=== PATIENT | female | born 1950 | race Hispanic/Latino ===

== ENCOUNTER 2016-12-01 17:43 | Inpatient (IN) | payer MEDICARE, BC ==
[2016-12-01 18:02] VITALS: BMI 22.6
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
[2016-12-01 18:37] LABS: ADD MANUAL DIFF? NO
[2016-12-01 18:47] LABS: BASO # 0.05 K/mm3 (0.0-2.0); EOS # 0.1 (0.0-0.7); EOS % 1.4 % (1.5-5.0); GRAN # 2.86 (1.4-6.5); HEMATOCRIT 37.7 % (36.0-48.0); LYMPH # 1.7 (1.2-3.4); LYMPH % 34.1 % (22.0-35.0); MEAN CORPUSCULAR HEMOGLOBIN 30.5 pg (25.0-35.0); MEAN PLATELET VOLUME 9.9 fl (7.0-11.0); MONO # 0.4 (0.1-0.6); MONO % 7.5 % (1.0-6.0); PLATELET COUNT 324 10^3/uL (120.0-450.0); RED CELL DISTRIBUTION WIDTH 12.4 % (11.5-14.5); WHITE BLOOD COUNT 5.1 10^3/ul (4.5-11.0)
[2016-12-01 18:52] LABS: ALB/GLOB RATIO 1.1 (1.1-1.8); ALKALINE PHOSPHATASE 82 U/L (38-133); ALT/SGPT 43 U/L (7-56); AST/SGOT 34 U/L (15-39); BILIRUBIN,TOTAL 0.9 mg/dL (0.2-1.3); BLOOD UREA NITROGEN 9 mg/dL (7-21); CALCIUM 9.2 mg/dL (8.4-10.5); CARBON DIOXIDE 28 mmol/L (21-33); CHLORIDE 104 mmol/L (98-107); GFR AFRICAN-AMERICAN > 60; GLUCOSE,RANDOM 105 mg/dL (70-110); POTASSIUM 3.7 mmol/L (3.6-5.0); SODIUM 142 mmol/L (132-148)
[2016-12-01 18:53] LABS: PH,URINE 7.5 (4.7-8.0); URINE BILIRUBIN NEGATIVE (NEGATIVE); URINE BLOOD NEGATIVE (NEGATIVE); URINE GLUCOSE (UA) NEGATIVE (NEGATIVE); URINE KETONE NEGATIVE (NEGATIVE); URINE LEUKOCYTE ESTERASE SMALL Leu/uL (NEGATIVE); URINE PROTEIN NEGATIVE mg/dL (<30 mg/dL)
[2016-12-01 19:25] LABS: URINE APPEARANCE SL CLOUDY (CLEAR); URINE COLOR YELLOW (YELLOW)
[2016-12-01 19:26] LABS: URINE RBC 0 - 2 /hpf (0-2)
[2016-12-01 19:28] LABS: URINE BACTERIA FEW (NEG)
[2016-12-01 20:43] VITALS: O2SAT 95
--- NOTE | 2016-12-02 08:01 | RAD ---
HISTORY: pes eval COMPARISON: 07/16/2016 FINDINGS: LUNGS: No active pulmonary disease. PLEURA: No significant pleural effusion identified, no pneumothorax apparent. CARDIOVASCULAR: Normal. OSSEOUS STRUCTURES: No significant abnormalities. VISUALIZED UPPER ABDOMEN: Normal. OTHER FINDINGS: None. IMPRESSION: No active disease.
[2016-12-02] MEDS: buPROPion 300 mg/24 Hours XL Tab PO SCH (09:17)
[2016-12-02 09:28] LABS: CHOLESTEROL 198 mg/dL (130-200); GLUCOSE,FASTING 96 mg/dL (65-110)
[2016-12-02 09:42] LABS: FREE T4 1.14 ng/dL (0.78-2.19)
[2016-12-02 09:56] LABS: THYROID STIMULATING HORMONE 1.58 mIU/mL (0.46-4.68)
--- NOTE | 2016-12-02 11:20 | CARD ---
APPROVED REPORT EKG Measurement Heart [id number] VT [id number] [id number] <Conclusion> Normal sinus rhythm Normal ECG
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
[2016-12-03] MEDS: buPROPion 300 mg/24 Hours XL Tab PO SCH (08:42)
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
[2016-12-04 06:34] VITALS: BP 147/90; PULSE 67; RESP 19; TEMP 97.8
[2016-12-04] MEDS: buPROPion 300 mg/24 Hours XL Tab PO SCH (08:20)
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
== END 2016-12-04 15:16 | disposition home or self-care (01) | DRG 885 ==
LOC: ED 17:43 → ERH 23:45 → PSYC 12-02 01:29
PROVIDERS: ADMIT Psychiatry & Neurology Psychiatry; ATTEND Psychiatry & Neurology Psychiatry
DX: F33.2 Major depressive disorder, recurrent severe without psychotic features (principal); Z91.19 Patient's noncompliance with other medical treatment and regimen; F41.1 Generalized anxiety disorder; F45.9 Somatoform disorder, unspecified; F43.10 Post-traumatic stress disorder, unspecified; F51.04 Psychophysiologic insomnia; F10.10 Alcohol abuse, uncomplicated; K64.8 Other hemorrhoids; K63.89 Other specified diseases of intestine

== ENCOUNTER 2016-12-27 15:58 | Emergency (ER) | payer MEDICARE, BC ==
[2016-12-27 16:06] VITALS: BMI 20.9
[2016-12-27 16:09] VITALS: RESP 16; TEMP 97.9
[2016-12-27] MEDS ORDERED: Magnesium Citrate Oral SOL (300 ml) PO ONE (16:16)
--- NOTE | 2016-12-27 16:34 | ED PDOC ---
Arrival/HPI - General Chief Complaint: GI Problem Time Seen by Provider: 12/27/16 16:00 - History of Present Illness Narrative History of Present Illness (Text): 66 y/o F c PMHx Depression p/w constipation x 2 weeks. Reports abdominal discomfort but not particularly pain. Denies vomiting, dyspnea. Takes narcotic pain medication chronically. Patient with previous visits to this ER for constipation. Past Medical History - Past History Past History: No Previous - Infectious Disease Hx of Infectious Diseases: None - Tetanus Immunization Tetanus Immunization: Unknown - Reproductive Menopause: Yes - Past Medical History Past Medical History: No Previous - Cardiac Hx Cardiac Disorders: No Hx Hypertension: No - Pulmonary Hx Respiratory Disorders: No Hx Tuberculosis: No - Neurological HX Cerebrovascular Accident: No Hx Seizures: No - HEENT Hx HEENT Disorder: No - Renal Hx Renal Disorder: No - Endocrine/Metabolic Hx Endocrine Disorders: No - Hematological/Oncological Hx Blood Disorders: No Hx Cancer: No - Integumentary Hx Dermatological Disorder: No - Musculoskeletal/Rheumatological Hx Musculoskeletal Disorders: Yes Hx Back Pain: Yes Other/Comment: sees pain management - Gastrointestinal Hx Gastrointestinal Disorders: Yes (pancreatic stent placement, but patient does not recall information ) Hx Pancreatitis: Yes Other/Comment: ABD PAIN - RECENT ADMISSION - Genitourinary/Gynecological Hx Genitourinary Disorders: Yes Hx Sexually Transmitted Diseases: No Hx Urinary Tract Infection: Yes - Psychiatric Hx Psychophysiologic Disorder: Yes Hx Bipolar Disorder: Yes Hx Substance Use: No - Past Surgical History Past Surgical History: No Previous - Surgical History Hx Cataract Extraction: Yes Other/Comment: PANCREATIC STENT, ABD PAIN, colonoscopy - Anesthesia Hx Anesthesia: Yes Hx Anesthesia Reactions: No Hx Malignant Hyperthermia: No - Suicidal Assessment Feels Threatened In Home Enviroment: No Family/Social History Family/Social History: No Known Family HX Smoking Status: Current Some Days Smoker Hx Alcohol Use: No Hx Substance Use: No Hx Substance Use Treatment: No Allergies/Home Meds Allergies/Adverse Reactions: Allergies morphine Allergy (Verified 12/28/16 15:18) ITCHING Home Medications: Home Meds Medication Instructions Recorded Confirmed Diazepam [Valium] 2 mg PO TID 12/27/16 12/27/16 Eszopiclone [Lunesta] 3 mg PO HS 12/27/16 12/27/16 Lubiprostone [Amitiza] 24 mcg PO BID 12/27/16 12/27/16 amLODIPine [Norvasc] 5 mg PO DAILY 12/27/16 12/27/16 buPROPion [Wellbutrin] 300 mg PO DAILY 12/27/16 12/27/16 traMADol [Ultram] 25 mg PO BID 12/27/16 12/27/16 Review of Systems - Physician Review All systems were reviewed & negative as marked: Yes - Review of Systems Constitutional: absent: Fevers Gastrointestinal: absent: Vomiting Physical Exam Vital Signs Temp Pulse Resp BP Pulse Ox 12/27/16 18:12 82 16 110/76 98 12/27/16 16:09 97.9 F 93 H 16 111/79 100 - Systems Exam Head: Present: Atraumatic Mouth: Present: Moist Mucous Membranes Neck: Present: Normal Range of Motion Respiratory/Chest: Present: Clear to Auscultation Cardiovascular: Present: Regular Rate and Rhythm Abdomen: No: Peritoneal Signs Rectal: Present: Other (No rectal impaction). No: Gross Blood, Fissures, Nodule /Mass/Lesions Lower Extremity: No: Edema Neurological: Present: GCS=15 Psychiatric: Present: Alert Medical Decision Making ED Course and Treatment: 12/27/16 16:33 Abdominal XR to evaluate for bowel obstruction. Mag citrate to treat constipation. 12/27/16 18:40 Patient without bowel movement. Gave fleet enema, patient ran to bathroom but only liquid, she states. Rectal exam shows no impaction, no stool within reach of digit. XR shows no air fluid levels. Will administer Golytely. Signed out to ER night team pending BM. - RAD Interpretation Radiology Orders: 12/27/16 16:17 ABD 2 VIEWS (FLAT/UP OR DECUB) [RAD] Stat - Medication Orders Current Medication Orders: Discontinued Medications Magnesium Citrate (Citrate Of Mag) 300 ml PO ONCE ONE Stop: 12/27/16 16:17 Last Admin: 12/27/16 16:35 Dose: 300 ml Polyethylene Glycol/Electrolytes (Golytely) 4,000 ml PO STAT STA Stop: 12/27/16 18:36 Last Admin: 12/27/16 18:45 Dose: 4,000 ml Sodium Phosphate (Fleet Enema) 135 ml RC STAT STA Stop: 12/27/16 17:50 Last Admin: 12/27/16 18:03 Dose: 135 ml Disposition/Present on Arrival - Present on Arrival Any Indicators Present on Arrival: No History of DVT/PE: No History of Uncontrolled Diabetes: No Urinary Catheter: No History of Decub. Ulcer: No History Surgical Site Infection Following: None - Disposition Have Diagnosis and Disposition been Completed?: Yes Diagnosis: Constipation Disposition: HOME/ ROUTINE Disposition Time: 18:41 Patient Plan: Discharge Condition: STABLE Discharge Instructions (ExitCare): Constipation (ED) Referrals: Sami Villarreal MD [Primary Care Provider] - Follow up with primary
[2016-12-27 18:12] VITALS: BP 110/76; PULSE 82; O2SAT 98
[2016-12-27] MEDS ORDERED: Peg-Electrolyte Oral Soln 4L (Golytely) PO STA (18:35)
--- NOTE | 2016-12-28 09:59 | RAD ---
HISTORY: constipation, nausea COMPARISON: No prior. FINDINGS: BOWEL: Normal. No obstruction. No free air. BONES: Normal. OTHER FINDINGS: None. IMPRESSION: No evidence of bowel obstruction.
== END 2016-12-27 20:12 | disposition home or self-care (01) ==
LOC: ED 15:58
DX: K59.00 Constipation, unspecified (principal)

== ENCOUNTER 2016-12-28 15:00 | Emergency (ER) | payer MEDICARE, BC ==
[2016-12-28 15:01] VITALS: BMI 20.9
[2016-12-28 15:21] VITALS: BP 129/86; PULSE 93; RESP 18; TEMP 98.5; O2SAT 100
[2016-12-28 16:12] LABS: URINE BILIRUBIN NEGATIVE (NEGATIVE); URINE BLOOD TRACE-INTACT (NEGATIVE); URINE GLUCOSE (UA) NEGATIVE (NEGATIVE); URINE KETONE 40 mg/dL (NEGATIVE); URINE LEUKOCYTE ESTERASE NEGATIVE Leu/uL (NEGATIVE); URINE PROTEIN 30 mg/dL (<30 mg/dL); URINE UROBILINOGEN 0.2 E.U./dL (<1 E.U./dL)
--- NOTE | 2016-12-28 16:12 | ED PDOC ---
Arrival/HPI - General Chief Complaint: Female Genitourinary Time Seen by Provider: 12/28/16 15:36 Historian: Patient - History of Present Illness Narrative History of Present Illness (Text): 12/28/16 16:09 Patient complains of dysuria that started early this morning. Patient has no flank pain, back pain or abdominal pain. Otherwise: (-) vomiting, (-) diarrhea, (-) fever, (-) melena, (-) hematochezia. Has no other complaints. PMD Cherelle Palacio Past Medical History - Provider Review Nursing Documentation Reviewed: Yes - Past History Past History: No Previous - Infectious Disease Hx of Infectious Diseases: None - Tetanus Immunization Tetanus Immunization: Unknown - Past Medical History Past Medical History: No Previous - Cardiac Hx Cardiac Disorders: No Hx Hypertension: No - Pulmonary Hx Respiratory Disorders: No Hx Tuberculosis: No - Neurological HX Cerebrovascular Accident: No Hx Seizures: No - HEENT Hx HEENT Disorder: No - Renal Hx Renal Disorder: No - Endocrine/Metabolic Hx Endocrine Disorders: No - Hematological/Oncological Hx Blood Disorders: No Hx Cancer: No - Integumentary Hx Dermatological Disorder: No - Musculoskeletal/Rheumatological Hx Musculoskeletal Disorders: Yes Hx Back Pain: Yes Other/Comment: sees pain management - Gastrointestinal Hx Gastrointestinal Disorders: Yes (pancreatic stent placement, but patient does not recall information ) Hx Pancreatitis: Yes Other/Comment: ABD PAIN - RECENT ADMISSION - Genitourinary/Gynecological Hx Genitourinary Disorders: Yes Hx Sexually Transmitted Diseases: No Hx Urinary Tract Infection: Yes - Psychiatric Hx Psychophysiologic Disorder: Yes Hx Bipolar Disorder: Yes Hx Substance Use: No - Past Surgical History Past Surgical History: No Previous - Surgical History Hx Cataract Extraction: Yes Other/Comment: PANCREATIC STENT, ABD PAIN, colonoscopy - Anesthesia Hx Anesthesia: Yes Hx Anesthesia Reactions: No Hx Malignant Hyperthermia: No - Suicidal Assessment Feels Threatened In Home Enviroment: No Family/Social History - Physician Review Nursing Documentation Reviewed: Yes Family/Social History: No Known Family HX Smoking Status: Current Some Days Smoker Hx Alcohol Use: No Hx Substance Use: No Hx Substance Use Treatment: No Allergies/Home Meds Allergies/Adverse Reactions: Allergies morphine Allergy (Verified 12/28/16 15:18) ITCHING Home Medications: Home Meds Medication Instructions Recorded Confirmed Diazepam [Valium] 2 mg PO TID 12/27/16 12/27/16 Eszopiclone [Lunesta] 3 mg PO HS 12/27/16 12/27/16 Lubiprostone [Amitiza] 24 mcg PO BID 12/27/16 12/27/16 amLODIPine [Norvasc] 5 mg PO DAILY 12/27/16 12/27/16 buPROPion [Wellbutrin] 300 mg PO DAILY 12/27/16 12/27/16 traMADol [Ultram] 25 mg PO BID 12/27/16 12/27/16 Review of Systems - Review of Systems Constitutional: Normal. absent: Fatigue, Weight Change, Fevers Respiratory: Normal. absent: SOB, Cough, Sputum Cardiovascular: Normal. absent: Chest Pain, Palpitations, Edema Gastrointestinal: Normal, Constipation. absent: Abdominal Pain, Stool Changes Genitourinary Female: Normal, Dysuria. absent: Frequency, Hematuria Musculoskeletal: Normal. absent: Arthralgias, Back Pain, Neck Pain Skin: Normal. absent: Rash, Pruritis, Skin Lesions Physical Exam - Physical Exam Narrative Physical Exam (Text): 12/28/16 16:11 GENERAL APPEARANCE: Patient is awake, alert, oriented x 3, in no acute distress. SKIN: Warm, dry; (-) cyanosis. EYES: (-) conjunctival pallor, (-) scleral icterus. ENMT: Mucous membranes moist. NECK: (-) tenderness, (-) stiffness, (-) lymphadenopathy. CHEST AND RESPIRATORY: (-) rales, (-) rhonchi, (-) wheezes; breath sounds equal bilaterally. HEART AND CARDIOVASCULAR: (-) irregularity; (-) murmur, (-) gallop. ABDOMEN AND GI: (-) distention. Bowel sounds active; (-) tenderness, (-) guarding, (-) rebound, (-) palpable masses, (-) CVA tenderness. EXTREMITIES: (-) deformity, (-) edema, (+) distal pulses. NEURO AND PSYCH: Mental status as above; (-) focal findings. Vital Signs Temp Pulse Resp BP Pulse Ox 12/28/16 15:20 98.5 F 93 H 18 129/86 100 Medical Decision Making ED Course and Treatment: 12/28/16 16:12 66 yo F complaining of dysuria only. Urinalysis and urine culture sent. UA shows (+) ketones, (+) protien, (-) nitrates, (-) leuks. Urine culture pending. Based on history, exam and diagnostic results plan will be for the patient follow-up with PMD. Prescription provided. Patient states she fully agrees with and understands discharge instructions. States that she agrees with the plan and disposition. Verbalized and repeated discharge instructions and plan. I have given the patient opportunity to ask any additional questions. Follow up with primary care physician in 1-2 days without fail. Advised to take medication as prescribed. Return to the emergency room at any time for any new or worsening symptoms. - Lab Interpretations Lab Results: Lab Results 12/28/16 15:45: Urine Color Yellow, Urine Appearance Sl cloudy, Urine pH 8.0, Ur Specific [place] 1.020, Urine Protein 30 H, Urine Glucose (UA) Negative, Urine Ketones 40 H, Urine Blood Trace-intact H, Urine Nitrate Negative, Urine Bilirubin Negative, Urine Urobilinogen 0.2, Ur Leukocyte Esterase Negative, Urine RBC 0 - 2, Urine WBC 1 - 3, Ur Epithelial Cells 3 - 4, Amorphous Sediment Moderate, Urine Bacteria Small - PA / MANAGER GOLF / Resident Statement MD/DO has reviewed & agrees with the documentation as recorded. Disposition/Present on Arrival - Present on Arrival Any Indicators Present on Arrival: No History of DVT/PE: No History of Uncontrolled Diabetes: No Urinary Catheter: No History of Decub. Ulcer: No History Surgical Site Infection Following: None - Disposition Have Diagnosis and Disposition been Completed?: Yes Diagnosis: Dysuria Disposition: HOME/ ROUTINE Disposition Time: 16:38 Patient Plan: Discharge Condition: GOOD Discharge Instructions (ExitCare): Dysuria (ED) Print Language: PERSIAN Additional Instructions: Thank you for letting us take care of you today. You were treated for dysuria, consider UTI. The emergency medical care you received today was directed at your acute symptoms. If you were prescribed any medication, please fill it and take as directed. It may take several days for your symptoms to resolve. Return to the Emergency Department if your symptoms worsen, do not improve, or if you have any other problems. Please contact your doctor in 2 days for re-evaluation and follow up. Bring any paperwork you were given at discharge with you along with any medications you are taking to your follow up visit. Our treatment cannot replace ongoing medical care by a primary care provider (PCP) outside of the emergency department. Thank you for allowing the [facility] team to be part of your care today. Prescriptions: Nitrofurantoin Macrocrystals [Macrobid] 100 mg PO BID #20 cap Phenazopyridine [Pyridium] 200 mg PO BID #6 tab Referrals: Sami Villarreal MD [Primary Care Provider] - Follow up with primary
[2016-12-28 16:18] LABS: URINE APPEARANCE SL CLOUDY (CLEAR); URINE COLOR YELLOW (YELLOW)
[2016-12-28 16:35] LABS: URINE AMORPHOUS SEDIMENT MODERATE; URINE BACTERIA SMALL (NEG); URINE RBC 0 - 2 /hpf (0-2)
== END 2016-12-28 16:55 | disposition home or self-care (01) ==
LOC: ED 15:00
DX: R30.0 Dysuria (principal)

== ENCOUNTER 2017-01-09 13:03 | Inpatient (IN) | payer MEDICARE, BC ==
[2017-01-09 13:03] VITALS: BMI 20.9
[2017-01-09] MEDS ORDERED: Sodium Chloride 0.9% 1,000 ML IV STA (14:01)
--- NOTE | 2017-01-09 14:04 | ED PDOC ---
Arrival/HPI - General Chief Complaint: Abdominal Pain Time Seen by Provider: 01/09/17 13:59 Historian: Patient - History of Present Illness Narrative History of Present Illness (Text): 01/09/17 14:01 66 year old female presents to the emergency department with abdominal pain today. Patient states she was constipated and took Enemas and Ducolax. She reports she took GoLYTELY which relieved the constipation. Now she reports abdominal discomfort described as burning/cramping and clear diarrhea. Currently denies constipation or other complaints. Time/Duration: < week Symptom Onset: Gradual Symptom Course: Unchanged Quality: Cramping, Burning Past Medical History - Provider Review Nursing Documentation Reviewed: Yes - Past History Past History: No Previous - Infectious Disease Hx of Infectious Diseases: None - Tetanus Immunization Tetanus Immunization: Unknown - Past Medical History Past Medical History: No Previous - Cardiac Hx Cardiac Disorders: No Hx Hypertension: No - Pulmonary Hx Respiratory Disorders: No Hx Tuberculosis: No - Neurological HX Cerebrovascular Accident: No Hx Seizures: No - HEENT Hx HEENT Disorder: No - Renal Hx Renal Disorder: No - Endocrine/Metabolic Hx Endocrine Disorders: No - Hematological/Oncological Hx Blood Disorders: No Hx Cancer: No - Integumentary Hx Dermatological Disorder: No - Musculoskeletal/Rheumatological Hx Musculoskeletal Disorders: Yes Hx Back Pain: Yes Other/Comment: sees pain management - Gastrointestinal Hx Gastrointestinal Disorders: Yes (pancreatic stent placement, but patient does not recall information ) Hx Pancreatitis: Yes Other/Comment: ABD PAIN - RECENT ADMISSION - Genitourinary/Gynecological Hx Genitourinary Disorders: Yes Hx Sexually Transmitted Diseases: No Hx Urinary Tract Infection: Yes - Psychiatric Hx Psychophysiologic Disorder: Yes Hx Bipolar Disorder: Yes Hx Substance Use: No - Past Surgical History Past Surgical History: No Previous - Surgical History Hx Cataract Extraction: Yes Other/Comment: PANCREATIC STENT, ABD PAIN, colonoscopy - Anesthesia Hx Anesthesia: Yes - Suicidal Assessment Feels Threatened In Home Enviroment: No Family/Social History - Physician Review Nursing Documentation Reviewed: Yes Family/Social History: Unknown Family HX Smoking Status: Current Some Days Smoker Hx Alcohol Use: No Hx Substance Use: No Hx Substance Use Treatment: No Allergies/Home Meds Allergies/Adverse Reactions: Allergies morphine Allergy (Verified 01/09/17 13:08) ITCHING Home Medications: Home Meds Medication Instructions Recorded Confirmed No Known Home Med 01/09/17 01/09/17 Review of Systems - Physician Review All systems were reviewed & negative as marked: Yes Physical Exam - Physical Exam Narrative Physical Exam (Text): - Review of Systems Constitutional: Normal. absent: Fatigue, Weight Change, Fevers Eyes: Normal ENT: Normal Respiratory: Normal absent: SOB, Cough, Sputum Cardiovascular: Normal absent: Chest pain, Palpitations, Syncope Gastrointestinal: Abdominal pain, Diarrhea, Constipation (resolved) absent: Nausea, Vomiting Genitourinary: Normal. absent: Dysuria, Frequency, Hematuria Musculoskeletal: Normal. absent: Arthralgias, Back Pain, Neck Pain Skin: Normal Neurological: Normal absent: Focal Weakness Endocrine: Normal Hemo/Lymphatic: Normal Psychiatric: Normal - Physical exam Patient appears age appropriate, speaking full sentences without difficulty - Systems Exam Head: Present: Atraumatic, Normocephalic Pupils: Present: PERRL Extraocular Muscles: Present: EOMI Conjunctiva: Present: Normal Mouth: Present: Moist Mucous Membranes Neck: Present: Normal Range of Motion. No: MIDLINE TENDERNESS, Paraspinal Tenderness Respiratory/Chest: Present: Clear to Auscultation, Good Air Exchange. No: Respiratory Distress, Accessory Muscle Use, Tachypneic Cardiovascular: Present: Regular Rate and Rhythm, Normal S1, S2, Peripheral Pulses Present. No: Murmurs Abdomen: Present: Normal Bowel Sounds, Diffuse tenderness to palpation No: Peritoneal Signs, Rebound, Guarding, Distention Back: Present: Normal Inspection. No: Midline Tenderness, Paraspinal Tenderness Upper Extremity: Present: Normal Inspection. No: Cyanosis, Edema Lower Extremity: Present: Normal Inspection. No: Edema Neurological: Present: GCS=15, Speech Normal, cranial nerves II through XII fully intact with no cerebellar abnormality, neuro-sensory fully intact. No focal neurological deficits. Skin: Present: Warm, Dry, Normal Color. No: Rashes Lymphatic: Present: OX3, NI, NC Psychiatric: Present: Alert, Oriented x 3, Normal Insight, Normal Concentration Vital Signs Reviewed: Yes Vital Signs Temp Pulse Resp BP Pulse Ox 01/09/17 18:31 74 18 140/75 99 01/09/17 16:46 69 18 142/79 97 01/09/17 15:19 78 18 146/88 97 01/09/17 15:06 94 H 18 134/89 96 01/09/17 13:16 98.6 F 100 H 18 136/93 H 96 01/09/17 13:09 98.6 F 100 H 22 136/93 H 99 Temperature: Afebrile Blood Pressure: Normal Pulse: Regular Respiratory Rate: Normal Appearance: Positive for: Well-Appearing, Non-Toxic, Uncomfortable Pain Distress: Moderate Mental Status: Positive for: Alert and Oriented X 3 Medical Decision Making ED Course and Treatment: Impression: 66 year old female presents to the emergency department with abdominal pain today. Patient states she was constipated and took Enemas and Ducolax. On physical exam, patient has diffuse tenderness to palpation. Differential Diagnosis include but are not limited to: Nonspecific abdominal pain vs dehydration vs electrolyte imbalance Plan: -- CT Abdomen/Pelvis -- Toradol -- IV fluids -- Labs -- Reassess and disposition Prior Visits: Notes and results from previous visits were reviewed. Patient was seen in the ED on 12/27/16 for constipation and discharged home. Progress Notes: EKG shows NSR at [address]-segment elevations, normal intervals. Interpreted by me. 01/09/17 14:15 Case discussed with patient's GI, Dr. Herrera, who agrees with imaging, bloodwork, and plan. 01/09/17 17:03 On reevaluation, patient is resting comfortably in no pain distress. 01/09/17 18:28 Rectal exam shows no blood or stool in rectum. Optical Glass Inspector: NARCISA Rachel Tech 01/09/17 18:[address] Herrera who agrees with observation in hospital. Patient's PMD paged. Patient aware of and agrees with plan. 01/09/17 18:[address] David Villarreal, aware of obs under his service pt aware of and agrees with plan - Lab Interpretations Lab Results: 01/09/17 14:15 01/09/17 14:40 Lab Results 01/09/17 14:40: Chloride 102, Sodium 134, Potassium 3.7, Carbon Dioxide 23, Anion Gap 13, BUN 10, Creatinine 0.5, Est GFR ( Amer) > 60, Est GFR (Non- Af Amer) > 60, Random Glucose 95, Calcium 9.7, Total Bilirubin 0.9, AST 37, ALT 52, Alkaline Phosphatase 68, Total Protein 7.1, Albumin 4.1, Globulin 3.0, Albumin/Globulin Ratio 1.4, Lipase 33 01/09/17 14:29: Urine Color Yellow, Urine Appearance Clear, Urine pH 7.0, Ur Specific [place] 1.010, Urine Protein Negative, Urine Glucose (UA) Negative, Urine Ketones Negative, Urine Blood Trace-intact H, Urine Nitrate Negative, Urine Bilirubin Negative, Urine Urobilinogen 0.2, Ur Leukocyte Esterase Negative , Urine RBC 1 - 3, Urine WBC 0 - 2, Ur Epithelial Cells 1 - 3, Amorphous Sediment Few, Urine Bacteria Mod, Urine Other Uyeast 01/09/17 14:15: PT 10.5, INR 0.97, APTT 26.9 01/09/17 14:15: WBC 7.1 D, RBC 4.53, Hgb 13.9, Hct 40.5, MCV 89.4, MCH 30.7, MCHC 34.3, RDW 12.7, Plt Count 298, MPV 9.8, Gran % 66.7, Lymph % (Auto) 25.5, [place] % (Auto) 6.4 H, Eos % (Auto) 1.0 L, Baso % (Auto) 0.4, Gran # 4.70, Lymph # 1.8, [place] # 0.5, Eos # 0.1, Baso # 0.03 01/09/17 14:15: pO2 85 H, VBG pH 7.48 H, VBG pCO2 36.0 L, VBG HCO3 26.8, VBG Total CO2 27.9, VBG O2 Sat (Calc) 98.4 H, VBG Base Excess 3.4 H, Chloride 105.0 , Glucose 94, Lactate 1.2, FiO2 21 - RAD Interpretation Radiology Orders: 01/09/17 14:00 ABD & PELVIS W/O PO OR IV CONT [CT] Stat - EKG Interpretation Interpreted by ED Physician: Yes Type: 12 lead EKG - Medication Orders Current Medication Orders: Discontinued Medications Diphenhydramine HCl (Benadryl) 50 mg IVP STAT STA Stop: 01/09/17 15:06 Last Admin: 01/09/17 15:25 Dose: 50 mg Sodium Chloride (Sodium Chloride 0.9%) 1,000 mls @ 1,000 mls/hr IV .Q1H STA Stop: 01/09/17 15:00 Last Admin: 01/09/17 14:22 Dose: 1,000 mls/hr Ketorolac Tromethamine (Toradol) 15 mg IVP STAT STA Stop: 01/09/17 14:02 Last Admin: 01/09/17 14:21 Dose: 15 mg Morphine Sulfate (Morphine) 6 mg IVP STAT STA Stop: 01/09/17 15:06 Last Admin: 01/09/17 15:24 Dose: 6 mg Morphine Sulfate (Morphine) 4 mg IVP STAT STA Stop: 01/09/17 18:09 ED OBSERVATION Date of observation admission: 01/09/17 Time of observation admission: 13:30 - Observation admission statement Patient is being placed in observation because:: abdominal pain - Goals of Observation Goals of observation are:: CT, labs - Scribe Statement The provider has reviewed the documentation as recorded by the Edward Quintero Provider Scribe Attestation: All medical record entries made by the Scribe were at my direction and personally dictated by me. I have reviewed the chart and agree that the record accurately reflects my personal performance of the history, physical exam, medical decision making, and the department course for this patient. I have also personally directed, reviewed, and agree with the discharge instructions and disposition. Disposition/Present on Arrival - Present on Arrival Any Indicators Present on Arrival: No History of DVT/PE: No History of Uncontrolled Diabetes: No Urinary Catheter: No History of Decub. Ulcer: No History Surgical Site Infection Following: None - Disposition Have Diagnosis and Disposition been Completed?: Yes Diagnosis: Abdominal pain Disposition: HOSPITALIZED Disposition Time: 13:30 Patient Plan: Observation Patient Problems: Current Active Problems Problem Status Onset Abdominal pain Acute Condition: FAIR Referrals: Sami Villarreal MD [Primary Care Provider] - Follow up with primary
[2017-01-09 14:22] LABS: ADD MANUAL DIFF? NO
[2017-01-09 14:29] LABS: VENOUS BLOOD GAS BASE EXCESS 3.4 mmol/L (0.0-2.0); VENOUS BLOOD PH 7.48 (7.32-7.43)
[2017-01-09 14:36] LABS: HEMATOCRIT 40.5 % (36.0-48.0); MEAN CELL VOLUME 89.4 fL (80.0-105.0); MEAN CORPUSCULAR HEMOGLOBIN 30.7 pg (25.0-35.0); MEAN CORPUSCULAR HGB CONC 34.3 g/dl (31.0-37.0); WHITE BLOOD COUNT 7.1 10^3/ul (4.5-11.0)
[2017-01-09 14:37] LABS: BASO # 0.03 K/mm3 (0.0-2.0); BASO % 0.4 % (0.0-3.0); EOS # 0.1 (0.0-0.7); GRAN % 66.7 % (50.0-68.0); LYMPH # 1.8 (1.2-3.4); LYMPH % 25.5 % (22.0-35.0); MEAN PLATELET VOLUME 9.8 fl (7.0-11.0); MONO # 0.5 (0.1-0.6); MONO % 6.4 % (1.0-6.0); PLATELET COUNT 298 10^3/uL (120.0-450.0); RED CELL DISTRIBUTION WIDTH 12.7 % (11.5-14.5)
[2017-01-09 14:43] LABS: INR 0.97 (0.93-1.08); PARTIAL THROMBOPLASTIN TIME 26.9 Seconds (23.7-30.8)
[2017-01-09 14:47] LABS: URINE BILIRUBIN NEGATIVE (NEGATIVE); URINE BLOOD TRACE-INTACT (NEGATIVE); URINE GLUCOSE (UA) NEGATIVE (NEGATIVE); URINE KETONE NEGATIVE (NEGATIVE); URINE LEUKOCYTE ESTERASE NEGATIVE Leu/uL (NEGATIVE); URINE PROTEIN NEGATIVE mg/dL (<30 mg/dL); URINE UROBILINOGEN 0.2 E.U./dL (<1 E.U./dL)
[2017-01-09 14:48] LABS: URINE APPEARANCE CLEAR (CLEAR); URINE COLOR YELLOW (YELLOW)
[2017-01-09 15:03] LABS: URINE AMORPHOUS SEDIMENT FEW; URINE BACTERIA MOD (NEG); URINE WBC 0 - 2 /hpf (0-6)
[2017-01-09] MEDS ORDERED: DiphenhydrAMINE 50 mg/ml Inj IVP STA (15:05)
--- NOTE | 2017-01-09 15:32 | CT ---
PROCEDURE: CT Abdomen and Pelvis without Oral or IV contrast. HISTORY: abd cramping COMPARISON: CT abdomen and pelvis without oral or IV contrast performed 07/16/16 TECHNIQUE: Contiguous axial images of the abdomen and pelvis. No oral or IV contrast administered. Coronal and Sagittal reformats generated. Radiation dose: Total exam DLP = 412.31 mGy-cm. This CT exam was performed using one or more of the following dose reduction techniques: Automated exposure control, adjustment of the mA and/or kV according to patient size, and/or use of iterative reconstruction technique. FINDINGS: Examination limited due to patient obliquity. There is limited evaluation of the solid organs without the administration of IV contrast. LOWER THORAX: Minimal basilar atelectasis. No visible consolidation, pleural effusion, or pneumothorax. Small hiatal hernia. LIVER: Unremarkable unenhanced appearance. GALLBLADDER AND BILE DUCTS: Unremarkable unenhanced appearance. PANCREAS: Unremarkable unenhanced appearance. SPLEEN: Unremarkable unenhanced appearance. ADRENALS: Unremarkable unenhanced appearance. KIDNEYS AND URETERS: No hydronephrosis or obstructing renal calculus. BLADDER: Under distention of the urinary bladder limits evaluation. REPRODUCTIVE: Uterus is present. 2 cm uterine calcifications consistent with degenerating fibroid. APPENDIX: Appendix is not identified. No secondary signs of acute appendicitis. BOWEL: The stomach is nondistended. Lack of oral contrast limits evaluation for bowel pathology. The bowel loops appear within normal limits of caliber without evidence of intestinal obstruction. PERITONEUM: No significant free fluid. No definite free air. LYMPH NODES: No bulky lymphadenopathy identified. VASCULATURE: Minimal scattered atherosclerotic calcifications. No aortic aneurysm. BONES: Osseous demineralization limits evaluation for acute fracture lines. Degenerative changes. OTHER FINDINGS: None. IMPRESSION: No acute findings. Incidental findings as above.
[2017-01-09 18:08] LABS: ALB/GLOB RATIO 1.4 (1.1-1.8); ALKALINE PHOSPHATASE 68 U/L (38-133); ALT/SGPT 52 U/L (7-56); AST/SGOT 37 U/L (15-39); BILIRUBIN,TOTAL 0.9 mg/dL (0.2-1.3); BLOOD UREA NITROGEN 10 mg/dL (7-21); CALCIUM 9.7 mg/dL (8.4-10.5); CARBON DIOXIDE 23 mmol/L (21-33); CHLORIDE 102 mmol/L (98-107); GFR AFRICAN-AMERICAN > 60; GLUCOSE,RANDOM 95 mg/dL (70-110); LIPASE 33 U/L (23-300); POTASSIUM 3.7 mmol/L (3.6-5.0); SODIUM 134 mmol/L (132-148); TOTAL PROTEIN 7.1 g/dL (5.8-8.3)
[2017-01-09] MEDS ORDERED: Morphine 4 mg/ml ISec IVP STA (18:08)
--- NOTE | 2017-01-09 18:49 | CARD ---
APPROVED REPORT EKG Measurement Heart [id number] <Conclusion> Normal sinus rhythm Normal ECG
[2017-01-09] MEDS ORDERED: Pneumococcal 23-Valent Vaccine IM ONE (22:32)
--- NOTE | 2017-01-09 23:06 | CP.PCM.PN ---
Subjective - Date & Time of Evaluation Date of Evaluation: 01/09/17 Time of Evaluation: 22:50 - Subjective Subjective: Patient was seen at bedside at nurse's concern that she has right sided drooping. Patient has complaint of right arm and right hip pain. Patient has received muliple doses of analgesics in the ER. Received Toradol 1400 hours. Has no other complaints. Medical record was reviewed. This 66 year old white woman was admitted with abdominal pain, constipation. Has PMH of Pancreatitis, pancreatic stent placement,UTI, bipolar disorder. Objective - Vital Signs/Intake and Output Vital Signs (last 24 hours): Temp Pulse Resp BP Pulse Ox 98.6 F 74 18 140/75 98 01/09/17 22:17 01/09/17 22:17 01/09/17 22:17 01/09/17 22:17 01/09/17 20:00 - Medications Medications: Current Medications Diazepam (Valium) 5 mg PO HS KIM PRN Reason: Protocol Zaleplon (Sonata) 5 mg PO HS KIM - Labs Labs: 01/09/17 14:15 01/09/17 14:40 PT 10.5 Seconds (9.9-11.8) 01/09/17 14:15 INR 0.97 (0.93-1.08) 01/09/17 14:15 APTT 26.9 Seconds (23.7-30.8) 01/09/17 14:15 - Constitutional Appears: Well, No Acute Distress - Head Exam Head Exam: ATRAUMATIC, NORMAL INSPECTION, NORMOCEPHALIC - Eye Exam Additional comments: Pupils pin point bilaterally, sluggishly reactive. 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 No definite facial drooping noticed. - Psychiatric Exam Psychiatric exam: Normal Affect, Normal Mood - Skin Skin Exam: Normal Color Assessment and Plan - Assessment and Plan (Free Text) Assessment: Right arm, right hip pain. Abdominal pain. Constipation. History pancreatitis and stent placement. History bipolar disorder. Plan: Toradol 15 mg IV now. Monitor. Continue present management.
--- NOTE | 2017-01-10 10:02 | CON ---
DATE: 01/10/2017 HISTORY OF PRESENT ILLNESS: I examined the patient this morning. She is a 66- year-old white female seen in the office this past Thursday for complaints of abdominal pain and constipation. The patient presented with a significant impaction involving all segments of the colon. Abdomen was distended, stool was palpated in all quadrants. She was not passing gas and was nauseous. She subsequently took regimen consisting of water enemas as well as GoLYTELY prep, which relieved the constipation. She subsequently reported to the Emergency Room with complaints of abdominal discomfort, although less than what she had the previous day as well as severe back pain. Pain in the ER, as well as in the office, was described as burning and she could not rate the pain on the basis of 1:10. There was no rectal bleeding or hematemesis. The patient's past medical history is significant for radiculopathy, both cervical as well as the lumbosacral. Previous endoscopic evaluations revealed multiple diverticula scattered throughout the colon. She has had numerous CTs, abdominal films as well as endoscopic procedures. The radiology has consistently proved noncontributory. She has also seen multiple GI consultants who were apparently unable to come up with a diagnosis or etiology of abdominal pain. I discussed this case with Dr. Tucker in the ER yesterday. He apparently evaluated after evaluation of labs and the patient admitted for observation due to the abdominal burning or pain issue. Note that she is currently seeing pain management for the latter. PHYSICAL EXAMINATION: VITAL SIGNS: I reviewed the patient's vital signs. HEENT: Significant for dry mouth. LUNGS: Decreased breath sounds at bases. HEART: Regular rate and rhythm. ABDOMEN: Significant for being decompressed. The colon was soft, no fecal impaction is palpated, it is not distended. She relates pain in the right lower quadrant, left lower quadrant. LABORATORY DATA: I reviewed the laboratory data as well as the CT images obtained yesterday. Note that this was a noncontrast CT. Aside from fluid in the small intestine and colon the abdominal films revealed no acute disease. ASSESSMENT: This is a 66-year-old white female with history of chronic burning abdominal pain and cervical and lumbar radiculopathy. She is currently seeing pain management for the latter. She has had multiple endoscopies as well as abdominal x-rays, which have failed to reveal the etiology of her burning abdominal pain. She sees pain management on recurring basis. I reviewed the orders currently in chart, at least for now these seem reasonable. As far as pain management is concerned, it is unclear what the etiology of her abdominal pain is. Dosing of analgesics will be at the discretion of Dr. Villarreal. A heart healthy diet was ordered. At least for now her constipation issue has resolved with current regimen. I advised her to continue on the current regimen consisting of MiraLax, Colace, plus/minus Amitiza on an outpatient basis. Etiology of her abdominal pain is still questionable, this could be related to irritable bowel, at least based on x-ray studies, endoscopy and history in the office by physical exam. I cannot make any comments regarding further testing for this lady as she has been worked up extensively. Note that prior workup has been noncontributory. Dimitri Herrera DO, PhD cc: [id number] TT: 01/10/2017 10:02:31 Confirmation # [id number] Dictation # [id number] jn MONSERRAT
[2017-01-10] MEDS: buPROPion 300 mg/24 Hours XL Tab PO SCH (10:06)
[2017-01-10] MEDS ORDERED: oxyCODONE 5 mg Immediate Release Tab PO PRN (12:21)
[2017-01-10] MEDS ORDERED: Hyoscyamine 0.125 mg SL Tab PO SCH (14:00)
[2017-01-10] MEDS ORDERED: Albuterol-Ipratrop 3 mg / 0.5 (3 ml) UD IH STA (16:28)
[2017-01-10] MEDS ORDERED: DiphenhydrAMINE 50 mg/ml Inj IVP STA (16:31)
[2017-01-10] MEDS ORDERED: Albuterol-Ipratrop 3 mg / 0.5 (3 ml) UD IH PRN (16:53)
--- NOTE | 2017-01-10 16:53 | CP.PCM.PN ---
Subjective - Date & Time of Evaluation Date of Evaluation: 01/10/17 Time of Evaluation: 16:49 - Subjective Subjective: called by nurse pt is sob and pulse ox is 85%. pt has receieved hyocyamine 20 minutes before.no cp no palpitation Objective - Vital Signs/Intake and Output Vital Signs (last 24 hours): Temp Pulse Resp BP Pulse Ox 98.4 F 71 18 148/88 96 01/10/17 07:48 01/10/17 16:37 01/10/17 07:48 01/10/17 10:07 01/10/17 07:48 Intake and Output: 01/10/17 01/10/17 06:59 18:59 Intake Total 240 Balance 240 - Medications Medications: Current Medications Amlodipine Besylate (Norvasc) 5 mg PO DAILY [facility] Last Admin: 01/10/17 10:07 Dose: 5 mg Bupropion HCl (Wellbutrin Xl) 300 mg PO DAILY [facility] Last Admin: 01/10/17 10:06 Dose: 300 mg Diazepam (Valium) 2 mg PO 1300,1800 [facility] PRN Reason: Protocol Diazepam (Valium) 5 mg PO 2200 [facility] PRN Reason: Protocol Hyoscyamine (Levsin) 0.125 mg PO TID [facility] Last Admin: 01/10/17 15:44 Dose: 0.125 mg Olanzapine (Zyprexa) 2.5 mg PO 2200 [facility] Tramadol HCl (Ultram) 50 mg PO TID [facility] Zaleplon (Sonata) 10 mg PO HS [facility] - Labs Labs: 01/09/17 14:15 01/09/17 14:40 PT 10.5 Seconds (9.9-11.8) 01/09/17 14:15 INR 0.97 (0.93-1.08) 01/09/17 14:15 APTT 26.9 Seconds (23.7-30.8) 01/09/17 14:15 - Constitutional Appears: In Acute Distress - Head Exam Head Exam: NORMOCEPHALIC - Eye Exam Eye Exam: Normal appearance Pupil Exam: PERRL - ENT Exam ENT Exam: Mucous Membranes Moist - Neck Exam Neck Exam: Full ROM - Respiratory Exam Respiratory Exam: Wheezes - Cardiovascular Exam Cardiovascular Exam: RRR, +S1, +S2 - Rectal Exam Rectal Exam: Deferred - Extremities Exam Extremities Exam: Full ROM - Neurological Exam Neurological Exam: Alert, CN II-XII Intact, Oriented x3 - Psychiatric Exam Psychiatric exam: Anxious - Skin Skin Exam: Dry, Warm Assessment and Plan - Assessment and Plan (Free Text) Assessment: sob ?allergic reaction . Plan: duo nebs stat, o2 100%. . benadryl 25 mg x1 stat. pt imroved. chest xray stat.
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
--- NOTE | 2017-01-11 00:53 | HP ---
CHIEF COMPLAINT: Abdominal pain. HISTORY OF PRESENT ILLNESS: This is a 66-year-old woman I have known for many years with a history o f severe abdominal pain. She was hospitalized for approximately 9 months back in the at [facility] for pancreatitis. She has had extensive workup over the last 5-7 years with multi ple endoscopies and CAT scans because of persistent abdominal pain. She has been doing better recent ly. She is seeing a psychiatrist for mental health issues of depression. Her chronic pain was being treated with mild analgesics, physical therapy and home exercises. She started seeing a pain manage ment physician approximately 1 year ago when her contact with me decreased dramatically. She is taki ng narcotic analgesics and developing constipation. She changed gastroenterologists and is seeing Dr Adela Herrera, who has been instrumental in controlling her GI symptoms and her chronic constipation , but she came to the Emergency Room this time with severe abdominal pain. In the Emergency Room, matt golden received 9 mg of morphine along with Toradol and other medications with only a little relief and, t herefore, arrangements were made for her to be admitted. PAST MEDICAL HISTORY: Significant for depression since her high school years because of childhood em otional trauma. She has a history of chronic low back pain, as noted above. MEDICATIONS: In the past have included oxycodone, tramadol, clonazepam, sonata, Zoloft, MiraLax, Zyp rexa, Wellbutrin, Nexium, Celexa. ALLERGIES: She is not believed to have any known allergies, although there is question of morphine c ausing fatigue. SOCIAL HISTORY: She smokes cigarettes, but denies drinking alcoholic beverage. REVIEW OF SYSTEMS: Otherwise, unremarkable, but unreliable at this time. The patient is a bit grogg y and lethargic, probably from the analgesics given in the Emergency Room. PHYSICAL EXAMINATION: GENERAL: The patient is seen this Thursday morning in room 378, bed 1, lying quite comfortably in be d. She is a bit groggy and lethargic, but answers questions appropriately and certainly in no pain. Mucous membranes are moist. Conjunctivae are pink. HEAD AND NECK: Otherwise unremarkable. NECK: Supple without masses. LUNGS: Clear. HEART: Regular, nontachycardic. BREASTS: Exam was not performed. ABDOMEN: Soft with normal bowel sounds present. There was no guarding or rebound. There was, howev er, some tenderness on palpation in the left lower quadrant. Even when distracted, the patient's ten derness in the left lower quadrant was reproducible. EXTREMITIES: Showed no edema. They were thin. Dorsalis pedis and posterior tibial pulses were presen t and palpable. IMPRESSION: 1. Abdominal pain. 2. History of chronic pancreatitis. 3. History of chronic constipation. 4. Opiate-induced constipation. 5. Chronic opiate use. 6. Chronic back pain. 7. Chronic abdominal pain. 8. Spinal stenosis. 9. Long history of depression. PLAN: IV fluids and advance the diet as tolerated. Bowel preps will be arranged by gastroente rologist. I will decrease her analgesics. I explained to her the importance of trying to reduce the opiate use and how that may be tying in significantly to her current symptoms as far as GI tract as well as depression is concerned. I will write for some morning labs, including amylase and lipase. Because of her history, and Dr. Chicas, her psychiatrist, who knows her well, to follow up here on [facility] medical floor as well. We will follow closely. Sami Villarreal MD cc: [id number] TT: 01/11/2017 00:52:13 ln
[2017-01-11] MEDS ORDERED: Oxycodone/Acetaminophen 5/325 mg Tab PO STA ×3 (02:43→20:25)
--- NOTE | 2017-01-11 02:47 | CP.PCM.PN ---
Subjective - Date & Time of Evaluation Date of Evaluation: 01/11/17 Time of Evaluation: 02:44 - Subjective Subjective: Patient was seen for lower abdominal pain.Pain has been present for about one week.Denies nausea,vomiting, diarrhoea,urinary symptoms. Medical record was reviewed. This 66 year old white woman was admitted with abdominal pain. Has history of pancreatitis, depression,allergy to morphine. Objective - Vital Signs/Intake and Output Vital Signs (last 24 hours): Temp Pulse Resp BP Pulse Ox 97.9 F 84 19 112/68 99 01/10/17 18:14 01/10/17 18:14 01/10/17 18:14 01/10/17 18:14 01/10/17 18:14 Intake and Output: 01/10/17 01/11/17 18:59 06:59 Intake Total 240 Balance 240 - Medications Medications: Current Medications Albuterol/Ipratropium (Duoneb 3 Mg/0.5 Mg (3 Ml) Ud) 3 ml IH Q2H PRN PRN Reason: wheezing. Amlodipine Besylate (Norvasc) 5 mg PO DAILY [facility] Last Admin: 01/10/17 10:07 Dose: 5 mg Bupropion HCl (Wellbutrin Xl) 300 mg PO DAILY [facility] Last Admin: 01/10/17 10:06 Dose: 300 mg Diazepam (Valium) 2 mg PO 1300,1800 [facility] PRN Reason: Protocol Last Admin: 01/10/17 17:30 Dose: Not Given Diazepam (Valium) 5 mg PO 2200 [facility] PRN Reason: Protocol Last Admin: 01/10/17 21:42 Dose: 5 mg Olanzapine (Zyprexa) 2.5 mg PO 2200 [facility] Tramadol HCl (Ultram) 50 mg PO TID [facility] Last Admin: 01/10/17 19:13 Dose: 50 mg Zaleplon (Sonata) 10 mg PO HS [facility] Last Admin: 01/10/17 21:42 Dose: 10 mg - Labs Labs: 01/09/17 14:15 01/09/17 14:40 PT 10.5 Seconds (9.9-11.8) 01/09/17 14:15 INR 0.97 (0.93-1.08) 01/09/17 14:15 APTT 26.9 Seconds (23.7-30.8) 06/02/17 14:15 - Constitutional Appears: Well, No Acute Distress - Head Exam Head Exam: ATRAUMATIC, NORMAL INSPECTION, NORMOCEPHALIC - Eye Exam Eye Exam: Normal appearance - ENT Exam ENT Exam: Normal External Ear Exam - Neck Exam Neck Exam: Normal Inspection - Respiratory Exam Respiratory Exam: NORMAL BREATHING PATTERN - Cardiovascular Exam Cardiovascular Exam: absent: JVD - GI/Abdominal Exam Additional comments: ? lower abdominal tenderness. Bowel sounds -normal. - Rectal Exam Rectal Exam: Deferred - Extremities Exam Extremities Exam: Normal Inspection - Back Exam Back Exam: NORMAL INSPECTION - Neurological Exam Neurological Exam: Alert - Psychiatric Exam Psychiatric exam: Normal Affect, Normal Mood - Skin Skin Exam: Normal Color Assessment and Plan - Assessment and Plan (Free Text) Assessment: Lower abdominal pain. history of pancreatitis. Chronic abdominal pain Depression. HTN Plan: Percocet I PO Now. Continue present management.
--- NOTE | 2017-01-11 07:56 | RAD ---
HISTORY: wheezing COMPARISON: No prior. FINDINGS: LUNGS: No active pulmonary disease. PLEURA: No significant pleural effusion identified, no pneumothorax apparent. CARDIOVASCULAR: Normal. OSSEOUS STRUCTURES: No significant abnormalities. VISUALIZED UPPER ABDOMEN: Normal. OTHER FINDINGS: None. IMPRESSION: No active disease.
[2017-01-11 08:03] LABS: ADD MANUAL DIFF? NO
[2017-01-11 08:20] LABS: BASO # 0.03 K/mm3 (0.0-2.0); BASO % 0.4 % (0.0-3.0); EOS # 0.2 (0.0-0.7); EOS % 2.2 % (1.5-5.0); GRAN % 63.2 % (50.0-68.0); HEMATOCRIT 38.3 % (36.0-48.0); LYMPH # 2.1 (1.2-3.4); LYMPH % 28.4 % (22.0-35.0); MEAN CELL VOLUME 89.5 fL (80.0-105.0); MEAN CORPUSCULAR HEMOGLOBIN 30.4 pg (25.0-35.0); MEAN CORPUSCULAR HGB CONC 33.9 g/dl (31.0-37.0); MEAN PLATELET VOLUME 10.3 fl (7.0-11.0); MONO # 0.4 (0.1-0.6); MONO % 5.8 % (1.0-6.0); PLATELET COUNT 287 10^3/uL (120.0-450.0); RED CELL DISTRIBUTION WIDTH 13.2 % (11.5-14.5); WHITE BLOOD COUNT 7.3 10^3/ul (4.5-11.0)
[2017-01-11 08:26] LABS: ALB/GLOB RATIO 1.2 (1.1-1.8); ALKALINE PHOSPHATASE 59 U/L (38-133); ALT/SGPT 42 U/L (7-56); AMYLASE 54 U/L (35-125); AST/SGOT 23 U/L (15-39); BILIRUBIN,TOTAL 0.8 mg/dL (0.2-1.3); BLOOD UREA NITROGEN 12 mg/dL (7-21); CALCIUM 9.2 mg/dL (8.4-10.5); CARBON DIOXIDE 26 mmol/L (21-33); CHLORIDE 107 mmol/L (98-107); GFR AFRICAN-AMERICAN > 60; GLUCOSE,RANDOM 94 mg/dL (70-110); LIPASE 25 U/L (23-300); POTASSIUM 3.9 mmol/L (3.6-5.0); SODIUM 140 mmol/L (132-148); TOTAL PROTEIN 6.5 g/dL (5.8-8.3)
--- NOTE | 2017-01-11 08:35 | PN ---
DATE: 01/11/2017 I examined the patient this morning. She is a 66-year-old white female admitted with complaints of abdominal pain and burning. As indicated in my note yesterday, after evaluation of the CT scan obtained on admission, which was evaluated on noncontrast study, evaluation of the bowel was noncontributory. The fecal impaction, the patient had when evaluated in my office several days prior, has resolved after use of a GoLYTELY prep plus several tap water enemas according to the regimen I gave her in the office. The patient was actually smiling today, which is something I could not believe. She indicated that the pain is still present, but less. The abdomen is not distended, and she does not feel nauseous. She was able to handle several meals yesterday with no problem. PHYSICAL EXAMINATION: VITAL SIGNS: I reviewed this patient's vital signs. HEENT: Noncontributory. LUNGS: Decreased breath sounds basilar. HEART: Regular rhythm. ABDOMEN: Significant for mild tenderness in all quadrants. The abdomen is not distended. She had hypoactive bowel sounds. LABORATORY DATA: Reviewed again. OVERALL ASSESSMENT: This is a 66-year-old white female with history of slow transit constipation, admitted after exhibiting residual abdominal pain status post a colon prep and enema therapy for a massive fecal impaction. The pain has resolved somewhat relative to evaluation in the office. The etiology of her abdominal pain is questionable. This possibly could have some relationship to irritable bowel, constipation type. Unclear whether there is some relationship to her radiculopathy, which is located in the lumbosacral area. As indicated previously, evaluation of the CT images did not reveal an acute etiology of her abdominal pain. Again, as indicated also, the patient has had multiple endoscopic procedures in the past, the one most recent by Dr. Moise - 06/25. Based on that, I do not feel any endoscopic evaluation is warranted right now. The patient has seen pain management in the past and recurrent pain etiology is probably multifactorial. In the hospital, Dr. Villarreal is regulating her analgesic dose. Other than the above, would suggest continue on the current management. Again, no acute intervention is warranted at the current time point. Dimitri Herrera DO, PhD cc: [id number] TT: 01/11/2017 08:35:07 Confirmation # [id number] Dictation # [id number] jn MTDEve
[2017-01-11 08:38] LABS: FREE T4 1.1 ng/dL (0.78-2.19)
[2017-01-11 08:52] LABS: THYROID STIMULATING HORMONE 0.53 mIU/mL (0.46-4.68)
[2017-01-11] MEDS: POLYETHYLENE GLYCOL 3350 17 GM/Dose PACKET PO SCH (09:09)
[2017-01-11] MEDS: buPROPion 300 mg/24 Hours XL Tab PO SCH (09:11)
[2017-01-11 09:51] LABS: ERYTHROCYTE SEDIMENTATION RATE 15 mm/hr (0.0-20.0)
--- NOTE | 2017-01-11 12:55 | MRI ---
PROCEDURE: MR THORACIC SPINE WITHOUT CONTRAST HISTORY: pain COMPARISON: None available. TECHNIQUE: Multiecho multiplanar sequences were performed through the thoracic spine without the use of intravenous contrast. FINDINGS: ALIGNMENT: Normal thoracic spinal alignment. Normal thoracic kyphosis. VERTEBRA: Vertebral body height are preserved. MARROW: Marrow signal unremarkable. PARASPINAL SOFT TISSUES: Unremarkable. CORD: Unremarkable thoracic cord. No volume loss, signal abnormality or syrinx. DISCS: No disc herniation, spinal canal stenosis, or neuroforaminal narrowing. OTHER FINDINGS: None. IMPRESSION: Unremarkable non-contrast enhanced MRI of the thoracic spine
--- NOTE | 2017-01-11 18:16 | PN ---
DATE: 01/11/2017 The patient was seen this Thursday morning in room 378, bed 1. I had a long conversation with her rega rding the findings of previous workups and current scans. She is tearful, saying that no one believe s her or the pain that she is in. I explained to her that we do understand her pain and she does hav e a chronic pain syndrome, but I am concerned about her use and dependency on opiate narcotics. This was the case when we first met. She went several years without any analgesic use and now has been t aking them through pain management. On physical exam abdomen is soft. There is intermittent tenderness on palpation. At times during co nversation she is quite relaxed and appears comfortable. Psychiatry and GI notes are appreciated. IMPRESSION: 1. Chronic abdominal pain since severe episode of hospitalization requiring a 9-month stay at [facility] back in the . 2. Chronic low back pain with arthritis. PLAN: I reviewed the history of diagnostics done. MRI of the C spine and lumbar spine was done just earlier this year. The patient reports her pain to be around the upper abdomen. We will check the thoracic spine as well. Chest x-ray was unremarkable. She was given 1 dose of 5 mg of oxycodone apa p earlier this morning. I will give her another dose now just to avoid any opiate withdrawal. We wi ll need to discuss with Dr. Chicas and with GI regarding her long-term goals and plan. At that time, I would probably also need to invoke the help of the patient and her . Sami Villarreal MD cc: [id number] TT: 01/11/2017 18:15:26 Confirmation # [id number] Dictation # [id number] jn
[2017-01-12] MEDS ORDERED: Oxycodone/Acetaminophen 5/325 mg Tab PO STA (05:43)
[2017-01-12] MEDS ORDERED: Pantoprazole 40 mg EC Tab PO SCH (06:30)
[2017-01-12 08:06] VITALS: BP 151/89; PULSE 72; RESP 19; TEMP 98.6; O2SAT 96
--- NOTE | 2017-01-12 08:17 | PN ---
DATE: 01/12/2017 I examined the patient this morning. She is a 66-year-old female with complaints of abdominal pain, severe constipation, back pain, chronic pain syndrome. The patient appears better spirits today relative to day of admission. She is passing gas. Abdominal pain is slightly less, however, she is still complaining. Nausea is not too much of an issue since she was able to handle meals yesterday. Overall, she appears comfortable. PHYSICAL EXAMINATION: VITAL SIGNS: I reviewed this patient's vital signs. HEENT: Noncontributory. LUNGS: Decreased breath sounds basilar. HEART: Regular rhythm. ABDOMEN: Soft, very mildly tender in the area of the right lower quadrant and left lower quadrant. I cannot appreciate on exam findings suggestive of a fecal impaction. The distribution of the colon as well as small bowel is soft, rubbery and palpation does not elicit as much pain as on day of admission. OVERALL ASSESSMENT: This is a 66-year-old white female with history of chronic pain syndrome who has progressed on the current regimen. For her constipation issues, I gave the patient a regimen in my office which consists of periodic tap water enemas followed by GoLYTELY. She should be on MiraLax and Colace plus a bowel motility agent on a daily basis in the form of either Amitiza or Linzess. Again, the enemas and colon prep can be done on a p.r.n. basis. As far as the abdominal pain is concerned, as indicated in my notes previously, she has had multiple endoscopic procedures plus x-rays. These have all proved noncontributory. In light of the symptoms, one might consider that this pain is related to either back or possibly component of irritable bowel syndrome, constipation type. In view of the pain management issue, there is probably some degree of narcotic dependency involved in this as well. I think the patient at some time point if possible should try and wean down on analgesics on an outpatient basis. As far as further evaluation of the pain is concerned, the workup to date has been exhaustive and there is really not too much I can offer at this point in time. The patient seems to be tolerating the above diet without problems. I will sign off the case today. Dimitri Herrera DO, PhD cc: [id number] TT: 01/12/2017 08:16:18 Confirmation # [id number] Dictation # [id number] en MTDEve
[2017-01-12] MEDS: POLYETHYLENE GLYCOL 3350 17 GM/Dose PACKET PO SCH (09:23)
[2017-01-12] MEDS: buPROPion 300 mg/24 Hours XL Tab PO SCH (09:25)
--- NOTE | 2017-01-12 12:29 | PN ---
DATE: 01/12/2017 The patient is a 66-year-old white female, currently in the hospital for evaluation of abdominal pain . This has been felt by primary care physician due to withdrawal from opiates. The patient has been on Suboxone in the past without relief. CURRENT MENTAL STATUS: Reveals that she is awake, alert, coherent, oriented x 3. Her mood is slight ly elevated, more so than the past 48 hours. She is tolerating multiple psychotropic medicines witho ut ill effect. Denies suicidal ideation. No psychotic symptoms. Affect flat and constricted. Judg ment and insight only fair. Recent and remote memory are intact. CURRENT MEDICATIONS: Include Colace, MiraLax, Norvasc, Protonix, Sonata 10 mg at bedtime, , Tuyet ium 2 mg b.i.d. and 5 mg , Wellbutrin, olanzapine 2.5 mg at bedtime. The patient's most recent CBC is totally normal as is most recent metabolic profile and thyroid funct ion studies. REVIEW OF SYSTEMS: Positive for abdominal pain. Rest of 10-point review noncontributory. VITAL SIGNS: Blood pressure 151/89, pulse 72, afebrile, respirations 18 per minute, O2 saturation 96 % on room air. IMPRESSION: The patient has chronic depressive disorder. She has a history of posttraumatic stress disorder. She has a history of opiate abuse in the past. She has somatoform disorder. She has a hi story of hypertension. PLAN: Reviewed psychotropic medicine. Will order. The patient is on sleeping medication at home, L unesta 3 mg at bedtime, which I ordered. She will follow up with pain management appointment tomorro w. I will see her in my office later in the week. From my point of view, she can be discharged. Andrea Chicas MD cc: [id number] TT: 01/12/2017 12:29:25 Confirmation # [id number] Dictation # [id number] en
--- NOTE | 2017-01-13 09:21 | PN ---
DATE: 01/12/2017 The patient is a 66-year-old female who was admitted to [facility]3] 3 days ago with compla ints of abdominal pain. She is known to have a history of abdominal pain with extensive workup in th e past. She also has a history of depression. She was evaluated by Dr. Herrera, the gastroenterolo gist, while on the floor. He offered Amitiza versus Linzess and p.r.n. enema for her constipation. When seen today, the patient is awake, alert, and oriented. She is still ____ moderately despondent, however, her blood pressure was 151/89 this morning. Heart rate is 72 and she is afebrile. During workup, MRI of the T-spine was done to ensure no radiculopathy was the cause of her abdominal pain an d the MRI was read as negative. Yesterday's blood work, including the CBC and chemistries were negat lexus. I discussed possible discharge with the patient. She said she was ready to go home today or to [place]. I left a message on the 's phone to call me back concerning her discharge when he wou ld be ready to accept the patient home. I also spoke with the binder caser, Benita Escalante, with the [facility] information. The patient is to be discharged to home in an improved condition. FINAL DIAGNOSES: 1. Abdominal pain. 2. Constipation. 3. Depression. Jared Villarreal MD cc: [id number] TT: 01/13/2017 09:21:27 Confirmation # [id number] Dictation # [id number] tn
== END 2017-01-12 16:09 | disposition home or self-care (01) | DRG 392 ==
LOC: ED 13:03 → OBSVTOIN 13:30 → EROBSV 13:30 → INTOOBSV 13:30 → ERH 18:45 → 3RSO 20:22 → OBSVTOIN 01-10 12:24 → 3RSO 01-11 10:52
PROVIDERS: ADMIT Internal Medicine; ATTEND Internal Medicine
DX: R10.31 Right lower quadrant pain (principal); K86.1 Other chronic pancreatitis; I10 Essential (primary) hypertension; F11.23 Opioid dependence with withdrawal; F31.9 Bipolar disorder, unspecified; F17.210 Nicotine dependence, cigarettes, uncomplicated; K59.03 Drug induced constipation; M48.00 Spinal stenosis, site unspecified; G89.4 Chronic pain syndrome; F43.12 Post-traumatic stress disorder, chronic; F45.9 Somatoform disorder, unspecified; K56.41 Fecal impaction; M19.90 Unspecified osteoarthritis, unspecified site; T40.605A Adverse effect of unspecified narcotics, initial encounter; Z63.8 Other specified problems related to primary support group; Z87.440 Personal history of urinary (tract) infections; Z88.5 Allergy status to narcotic agent; Z98.49 Cataract extraction status, unspecified eye; R40.2412 Glasgow coma scale score 13-15, at arrival to emergency department; K57.30 Diverticulosis of large intestine without perforation or abscess without bleeding; M54.12 Radiculopathy, cervical region; M54.16 Radiculopathy, lumbar region; M51.36 Other intervertebral disc degeneration, lumbar region; Z87.898 Personal history of other specified conditions; M79.601 Pain in right arm; M25.551 Pain in right hip; K58.9 Irritable bowel syndrome, unspecified; F32.89 Other specified depressive episodes

== ENCOUNTER 2017-06-26 09:57 | Emergency (ER) | payer MEDICARE, BC ==
[2017-06-26 09:58] VITALS: BMI 20.9
[2017-06-26] MEDS ORDERED: TraMADol/Apap 37.5/325 mg Tab PO STA (10:59)
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
[2017-06-26 11:54] VITALS: RESP 18; O2SAT 98
[2017-06-26] MEDS ORDERED: Morphine 2 mg/ml ISec IM STA (12:18)
[2017-06-26 13:40] VITALS: TEMP 98.3
--- NOTE | 2017-06-26 14:11 | RAD ---
PROCEDURE: Left Hip X-ray Radiographs. HISTORY: Left hip pain 2 days duration. No antecedent history of trauma. COMPARISON: None. FINDINGS: BONES: Satisfactory position alignment of components left RAMÓN. No evidence of subluxation or loosening. JOINTS: Normal. SOFT TISSUES: Normal. OTHER FINDINGS: None. IMPRESSION: No acute findings related to/accounting for the clinical presentation. Concordant results with the preliminary interpretation rendered by the emergency department physician procedure.
[2017-06-26 14:22] LABS: ALB/GLOB RATIO 1.3 (1.1-1.8); ALKALINE PHOSPHATASE 90 U/L (38-126); ALT/SGPT 33 U/L (7-56); AST/SGOT 21 U/L (14-36); BLOOD UREA NITROGEN 12 mg/dL (7-21); CALCIUM 9.4 mg/dL (8.4-10.5); CARBON DIOXIDE 30 mmol/L (21-33); CHLORIDE 106 mmol/L (98-107); GFR AFRICAN-AMERICAN > 60; GLUCOSE,RANDOM 105 mg/dL (70-110); SODIUM 141 mmol/L (132-148); TOTAL PROTEIN 6.9 g/dL (5.8-8.3)
[2017-06-26 14:26] LABS: BASO # 0.09 K/mm3 (0.0-2.0); BASO % 1.1 % (0.0-3.0); EOS # 0.1 (0.0-0.7); EOS % 1.6 % (1.5-5.0); GRAN # 5.18 (1.4-6.5); GRAN % 60.7 % (50.0-68.0); HEMATOCRIT 35.9 % (36.0-48.0); LYMPH # 2.7 (1.2-3.4); LYMPH % 31.7 % (22.0-35.0); MEAN CELL VOLUME 91.6 fl (80.0-105.0); MEAN CORPUSCULAR HEMOGLOBIN 30.1 pg (25.0-35.0); MEAN CORPUSCULAR HGB CONC 32.9 g/dl (31.0-37.0); MEAN PLATELET VOLUME 9.7 fl (7.0-11.0); MONO # 0.4 (0.1-0.6); MONO % 4.9 % (1.0-6.0); RED CELL DISTRIBUTION WIDTH 14.2 % (11.5-14.5); WHITE BLOOD COUNT 8.5 10^3/ul (4.5-11.0)
--- NOTE | 2017-06-26 14:43 | RAD ---
HISTORY: medical clearance COMPARISON: No prior. FINDINGS: LUNGS: No active pulmonary disease. PLEURA: No significant pleural effusion identified, no pneumothorax apparent. CARDIOVASCULAR: Normal. OSSEOUS STRUCTURES: No significant abnormalities. VISUALIZED UPPER ABDOMEN: Normal. OTHER FINDINGS: None. IMPRESSION: No active disease.
[2017-06-26 15:28] VITALS: BP 148/79; PULSE 79
[2017-06-26 15:43] LABS: URINE BILIRUBIN NEGATIVE (NEGATIVE); URINE BLOOD TRACE-INTACT (NEGATIVE); URINE GLUCOSE (UA) NEGATIVE (NEGATIVE); URINE KETONE NEGATIVE (NEGATIVE); URINE LEUKOCYTE ESTERASE TRACE Leu/uL (NEGATIVE); URINE PROTEIN 30 mg/dL (<30 mg/dL); URINE UROBILINOGEN 0.2 E.U./dL (<1 E.U./dL)
[2017-06-26 15:44] LABS: URINE APPEARANCE CLEAR (CLEAR); URINE COLOR YELLOW (YELLOW)
[2017-06-26 16:42] LABS: URINE BACTERIA MOD (NEG); URINE RBC 0 - 2 /hpf (0-2)
--- NOTE | 2017-06-26 22:58 | CARD ---
APPROVED REPORT EKG Measurement Heart [id number] FL 108P [id number] <Conclusion> Sinus rhythm with short FL with premature supraventricular complexes Otherwise normal ECG
--- NOTE | 2017-06-29 09:20 | US ---
PROCEDURE: Left lower extremity venous US HISTORY: Leg pain and swelling. Evaluate for DVT. PHYSICIAN(S): Henrry Javier MD. TECHNIQUE: Duplex sonography and color-flow Doppler with graded compression were used to evaluate the deep venous system of the left lower extremity. FINDINGS: The visualized deep venous system of the left lower extremity is sonographically normal and compressible. Normal wave forms and augmentation are seen. There is no sonographic evidence for deep venous thrombosis in the visualized segments of the left lower extremity. IMPRESSION: 1. No sonographic evidence for deep venous thrombosis in the visualized segments of the left lower extremity.
== END 2017-06-26 15:52 | disposition home or self-care (01) ==
LOC: ED 09:57
DX: M25.552 Pain in left hip (principal); N39.0 Urinary tract infection, site not specified; Z91.19 Patient's noncompliance with other medical treatment and regimen; Z96.642 Presence of left artificial hip joint
CPT/HCPCS: 71010; 73502; 80053; 81001; 82948; 83735; 83880; 85025; 87086; 93005; 93971; 96372; 99285; J2270

== ENCOUNTER 2017-07-05 10:04 | Emergency (ER) | payer MEDICARE, BC ==
[2017-07-05 10:05] VITALS: BMI 20.9
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
[2017-07-05] MEDS ORDERED: Sodium Chloride 0.9% 1,000 ML IV STA (10:31)
[2017-07-05 10:48] LABS: BASO # 0.04 K/mm3 (0.0-2.0); BASO % 0.5 % (0.0-3.0); EOS # 0.1 (0.0-0.7); EOS % 1.3 % (1.5-5.0); GRAN # 4.71 (1.4-6.5); GRAN % 62.9 % (50.0-68.0); HEMATOCRIT 38.7 % (36.0-48.0); LYMPH # 2.1 (1.2-3.4); MEAN CELL VOLUME 90.6 fl (80.0-105.0); MEAN CORPUSCULAR HEMOGLOBIN 30.2 pg (25.0-35.0); MEAN CORPUSCULAR HGB CONC 33.3 g/dl (31.0-37.0); MEAN PLATELET VOLUME 9.2 fl (7.0-11.0); MONO # 0.6 (0.1-0.6); MONO % 7.3 % (1.0-6.0); RED CELL DISTRIBUTION WIDTH 14.5 % (11.5-14.5); WHITE BLOOD COUNT 7.5 10^3/ul (4.5-11.0)
[2017-07-05 10:56] VITALS: TEMP 97.6
[2017-07-05 11:28] LABS: ALB/GLOB RATIO 1.2 (1.1-1.8); ALKALINE PHOSPHATASE 95 U/L (38-126); ALT/SGPT 31 U/L (7-56); AST/SGOT 22 U/L (14-36); BILIRUBIN,TOTAL 0.9 mg/dL (0.2-1.3); BLOOD UREA NITROGEN 7 mg/dL (7-21); CALCIUM 9.4 mg/dL (8.4-10.5); CARBON DIOXIDE 24 mmol/L (21-33); CHLORIDE 106 mmol/L (98-107); GFR AFRICAN-AMERICAN > 60; GLUCOSE,RANDOM 118 mg/dL (70-110); POTASSIUM 4.1 mmol/L (3.6-5.0); SODIUM 140 mmol/L (132-148); TOTAL PROTEIN 7.2 g/dL (5.8-8.3)
[2017-07-05 11:53] LABS: PH,URINE 7.5 (4.7-8.0); URINE BILIRUBIN NEGATIVE (NEGATIVE); URINE BLOOD NEGATIVE (NEGATIVE); URINE GLUCOSE (UA) NEGATIVE (NEGATIVE); URINE KETONE NEGATIVE (NEGATIVE); URINE LEUKOCYTE ESTERASE NEGATIVE Leu/uL (NEGATIVE); URINE PROTEIN TRACE mg/dL (<30 mg/dL); URINE UROBILINOGEN 0.2 E.U./dL (<1 E.U./dL)
[2017-07-05 12:08] LABS: URINE APPEARANCE CLEAR (CLEAR); URINE COLOR YELLOW (YELLOW)
[2017-07-05 12:11] LABS: URINE BACTERIA SMALL (NEG); URINE RBC NEGATIVE /hpf (0-2); URINE WBC 0 - 2 /hpf (0-6)
[2017-07-05 12:33] VITALS: BP 139/64; PULSE 81; RESP 16; O2SAT 97
== END 2017-07-05 12:32 | disposition home or self-care (01) ==
LOC: ED 10:04
DX: R51 Headache (principal); F17.210 Nicotine dependence, cigarettes, uncomplicated
CPT/HCPCS: 80053; 81001; 85025; 96374; 96375; 99283; J1885; J2765; J7040

== ENCOUNTER 2018-03-03 20:44 | Observation (INO) | payer MEDICARE, BC ==
[2018-03-03 20:45] VITALS: BMI 20.9
[2018-03-03] MEDS ORDERED: Sodium Chloride 0.9% 1,000 ML IV STA (21:24)
[2018-03-03 21:58] LABS: BASO # 0.1 K/mm3 (0.0-2.0); BASO % 1.5 % (0.0-3.0); EOS # 0.1 (0.0-0.7); GRAN # 3.72 (1.4-6.5); GRAN % 54.4 % (50.0-68.0); HEMOGLOBIN 13.6 g/dL (12.0-16.0); LYMPH # 2.3 (1.2-3.4); LYMPH % 34.2 % (22.0-35.0); MEAN CELL VOLUME 86.7 fl (80.0-105.0); MEAN CORPUSCULAR HEMOGLOBIN 30.2 pg (25.0-35.0); MEAN CORPUSCULAR HGB CONC 34.8 g/dl (31.0-37.0); MEAN PLATELET VOLUME 9.9 fl (7.0-11.0); MONO # 0.5 (0.1-0.6); MONO % 7.9 % (1.0-6.0); RBC 4.51 10^6/uL (3.5-6.1); RED CELL DISTRIBUTION WIDTH 13.6 % (11.5-14.5); WHITE BLOOD COUNT 6.8 10^3/ul (4.5-11.0)
[2018-03-03 22:10] LABS: ALB/GLOB RATIO 1.3 (1.1-1.8); ALBUMIN 3.7 g/dL (3.0-4.8); ALT/SGPT 32 U/L (7-56); AMYLASE 32 U/L (35-125); AST/SGOT 34 U/L (14-36); CALCIUM 9.6 mg/dL (8.4-10.5); GFR AFRICAN-AMERICAN > 60; GFR NON-AFRICAN AMERICAN > 60; LIPASE 33 U/L (23-300)
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
[2018-03-03 22:14] LABS: BLOOD UREA NITROGEN < 2 mg/dL (7-21)
[2018-03-03] MEDS ORDERED: Iohexol 350 MG/100 ML VIAL ONE (22:21)
[2018-03-03 23:27] LABS: PH,URINE 7.5 (4.7-8.0); URINE BILIRUBIN NEGATIVE (NEGATIVE); URINE BLOOD NEGATIVE (NEGATIVE); URINE GLUCOSE (UA) NEGATIVE (NEGATIVE); URINE LEUKOCYTE ESTERASE NEGATIVE Leu/uL (NEGATIVE); URINE PROTEIN NEGATIVE mg/dL (<30 mg/dL); URINE UROBILINOGEN 0.2 E.U./dL (<1 E.U./dL)
[2018-03-03 23:29] LABS: URINE APPEARANCE CLEAR (CLEAR); URINE COLOR STRAW (YELLOW)
--- NOTE | 2018-03-04 00:05 | ED PDOC ---
Physical Exam Vital Signs Temp Pulse Resp BP Pulse Ox 03/04/18 00:31 69 18 138/75 100 03/03/18 21:12 97.8 F 75 18 159/88 H 100 Medical Decision Making ED Course and Treatment: 03/03/18 23:00 Case endorsed to me by Dr. Hernandez, who saw pt with general medical practitioner, pending CT scan, re-evaluation, and disposition. Pt, whose past medical history includes chronic back pain, chronic constipation, gastritis, depression, anxiety , and bipolar disorder, presented for abdominal pain and nausea x1 week. 03/04/18 00:00 CT Abdomen and Pelvis shows: Lung bases: Unremarkable. No mass. No consolidation. ABDOMEN: Liver: Unremarkable. Gallbladder and bile ducts: Unremarkable. Pancreas: Unremarkable. No mass. No ductal dilation. Spleen: Unremarkable. Adrenals: Unremarkable. Kidneys and ureters: Unremarkable. No hydronephrosis. Stomach and bowel: Unremarkable. PELVIS: Appendix: No appendiceal abnormality. Bladder: Unremarkable. Reproductive: Calcified uterine fibroid. ABDOMEN and PELVIS: Intraperitoneal space: Unremarkable. No free air. No significant fluid collection. Bones/joints: No acute fracture. No dislocation. Soft tissues: Unremarkable. Vasculature: Unremarkable. No abdominal aortic aneurysm. Lymph nodes: Unremarkable. IMPRESSION: No bowel obstruction or other acute intra-abdominal pathology. 03/04/18 01:[address] Villarreal, who is aware and agrees with plan. Accepts pt in to his service. Pt will go to [facility] observation for intractable abdominal pain. Requests Dr. Puckett on consult. - Lab Interpretations Lab Results: 03/03/18 21:40 03/03/18 21:40 Lab Results 03/03/18 23:00: Urine Color Straw, Urine Appearance Clear, Urine pH 7.5, Ur Specific [place] 1.010, Urine Protein Negative, Urine Glucose (UA) Negative, Urine Ketones Trace H, Urine Blood Negative, Urine Nitrate Negative, Urine Bilirubin Negative, Urine Urobilinogen 0.2, Ur Leukocyte Esterase Negative 03/03/18 21:40: Sodium 137, Potassium 3.9, Chloride 101, Carbon Dioxide 28, Anion Gap 12, BUN < 2 L, Creatinine 0.5 L, Est GFR ( Amer) > 60, Est GFR (Non-Af Amer) > 60, Random Glucose 94, Calcium 9.6, Magnesium 2.1, Total Bilirubin 0.8, AST 34, ALT 32, Alkaline Phosphatase 73, Total Protein 6.6, Albumin 3.7, Globulin 2.8, Albumin/Globulin Ratio 1.3, Amylase 32 L, Lipase 33 03/03/18 21:40: WBC 6.8, RBC 4.51, Hgb 13.6, Hct 39.1, MCV 86.7 D, MCH 30.2, MCHC 34.8, RDW 13.6, Plt Count 341, MPV 9.9, Gran % 54.4, Lymph % (Auto) 34.2, Winn % (Auto) 7.9 H, Eos % (Auto) 2.0, Baso % (Auto) 1.5, Gran # 3.72, Lymph # ( Auto) 2.3, Winn # (Auto) 0.5, Eos # (Auto) 0.1, Baso # (Auto) 0.10 - RAD Interpretation Radiology Orders: 03/03/18 21:25 ABD & PELVIS IV CONTRAST ONLY [CT] [employer] Floor Operator: Radiologist - Medication Orders Current Medication Orders: Sodium Chloride (Sodium Chloride 0.9%) 1,000 mls @ 100 mls/hr IV .Q10H STA Stop: 03/04/18 07:23 Last Admin: 03/03/18 21:46 Dose: 100 mls/hr eMAR Start Stop Document 03/03/18 21:46 AD (Rec: 03/03/18 21:46 AD [id number]) Intravenous Solution Start Date 03/03/18 Start Time 21:46 Sodium Chloride (Sodium Chloride 0.9%) 1,000 mls @ 100 mls/hr IV .Q10H STA Stop: 03/04/18 11:57 Last Admin: 03/04/18 02:11 Dose: 100 mls/hr eMAR Start Stop Document 03/04/18 02:11 AD (Rec: 03/04/18 02:11 AD [id number]) Intravenous Solution Start Date 03/04/18 Start Time 02:11 Discontinued Medications Ketorolac Tromethamine (Toradol) 30 mg IVP STAT STA Stop: 03/03/18 21:27 Last Admin: 03/03/18 21:46 Dose: 30 mg MAR Pain Assessment Document 03/03/18 21:46 AD (Rec: 03/03/18 21:47 AD [id number]) Pain Reassessment Is this a pain reassessment? No Presence of Pain Presence of Pain Yes Pain Scale Used Pain Scale Used Numeric Description Pain Behavior Moaning Facial Grimacing IVP Administration Document 03/03/18 21:46 AD (Rec: 03/03/18 21:47 AD [id number]) Charges for Administration # of IVP Administrations 1 Morphine Sulfate (Morphine) 2 mg IVP STAT STA Stop: 03/04/18 00:37 Last Admin: 03/04/18 01:00 Dose: 2 mg MAR Pain Assessment Document 03/04/18 01:00 AD (Rec: 03/04/18 01:00 AD [id number]) Pain Reassessment Is this a pain reassessment? No Presence of Pain Presence of Pain Yes Pain Scale Used Pain Scale Used Numeric Description Intensity of Pain at present 8 IVP Administration Document 03/04/18 01:00 AD (Rec: 03/04/18 01:00 AD [id number]) Charges for Administration # of IVP Administrations 1 Ondansetron HCl (Zofran Inj) 4 mg IVP STAT STA Stop: 03/03/18 21:25 Last Admin: 03/03/18 21:46 Dose: 4 mg IVP Administration Document 03/03/18 21:46 AD (Rec: 03/03/18 21:46 AD [id number]) Charges for Administration # of IVP Administrations 1 Ondansetron HCl (Zofran Inj) 4 mg IVP ONCE ONE Stop: 03/04/18 00:37 Last Admin: 03/04/18 01:00 Dose: 4 mg IVP Administration Document 03/04/18 01:00 AD (Rec: 03/04/18 01:00 AD [id number]) Charges for Administration # of IVP Administrations 1 Disposition/Present on Arrival - Present on Arrival Any Indicators Present on Arrival: No History of DVT/PE: No History of Uncontrolled Diabetes: No Urinary Catheter: No History of Decub. Ulcer: No History Surgical Site Infection Following: None - Disposition Have Diagnosis and Disposition been Completed?: Yes Diagnosis: Abdominal pain Disposition: HOSPITALIZED Disposition Time: 02:13 Patient Plan: Observation Condition: STABLE Forms: [place] ([place])
[2018-03-04] MEDS ORDERED: Morphine 2 mg/ml ISec IVP STA (00:36)
[2018-03-04] MEDS ORDERED: Sodium Chloride 0.9% 1,000 ML IV STA (01:58)
--- NOTE | 2018-03-04 08:39 | CT ---
Date of service: 03/03/2018 PROCEDURE: CT Abdomen and Pelvis with contrast HISTORY: diffuse tenderness/constipation - r/o obstruction COMPARISON: 01/01/2018 TECHNIQUE: Contrast dose: 95 mL Omnipaque 350 Radiation dose: Total exam DLP = 490.59 mGy-cm. This CT exam was performed using one or more of the following dose reduction techniques: Automated exposure control, adjustment of the mA and/or kV according to patient size, and/or use of iterative reconstruction technique. FINDINGS: LOWER THORAX: Mild circumferential mural thickening of the distal esophagus, nonspecific. Possible esophagitis. Consider correlation with upper endoscopy. LIVER: Unremarkable. No gross lesion or ductal dilatation. GALLBLADDER AND BILE DUCTS: Unremarkable. PANCREAS: Unremarkable. No gross lesion or ductal dilatation. SPLEEN: Unremarkable. ADRENALS: Unremarkable. No mass. KIDNEYS AND URETERS: Unremarkable. No hydronephrosis. No solid mass. VASCULATURE: Unremarkable. No aortic aneurysm. BOWEL: Sigmoid diverticulosis without evidence of diverticulitis. No bowel obstruction. No other abnormal bowel loops. APPENDIX: Not identified. No secondary findings. PERITONEUM: Unremarkable. No free fluid. No free air. LYMPH NODES: Unremarkable. No enlarged lymph nodes. BLADDER: Unremarkable. REPRODUCTIVE: Coarse uterine calcifications consistent with calcified degenerated uterine fibroid. BONES: No acute fracture. OTHER FINDINGS: None. IMPRESSION: No acute abnormality. Minor findings as above. The preliminary findings for this examination were reported by QA on Request at 11:37 p.m. on 03/03/2018. There is concurrence of this report with the preliminary findings.
[2018-03-04] MEDS: POLYETHYLENE GLYCOL 3350 17 GM/Dose PACKET PO SCH (11:00)
--- NOTE | 2018-03-04 16:33 | CON ---
DATE: 03/04/2018 HISTORY OF PRESENT ILLNESS: I examined Mrs. Mcgowan this morning. 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 The patient was evaluated in my office about a week and a half ago complaining of severe abdominal pain, nausea, vomiting, abdominal distention, etc. She has not had a bowel movement for roughly about a week and a half prior to being seen in the office. The patient was given a GoLYTELY prep with relatively good results, but still presents to the Emergency Room with complaints of abdominal pain and nausea. The patient denied hematemesis or rectal bleeding. CT was done in the ER, which was noncontributory except for scattered stool, especially in the ascending colon, the descending colon, sigmoid as well as the splenic flexure. PHYSICAL EXAMINATION: VITAL SIGNS: I reviewed this patient's vital signs. HEENT: Significant for dry mouth only. LUNGS: Decreased breath sounds at the bases. HEART: Regular rhythm. ABDOMEN: Soft , decompressed, decreased pain, right lower and right upper quadrant as well as periumbilical. She has had small amount of stool palpated in the area of the left upper quadrant and left periumbilical. She has mild tenderness in the left upper quadrant, probably suggestive of some minor residual stool present in the colon. LABORATORY DATA: I reviewed this patient's laboratory data. OVERALL ASSESSMENT: This is a 67-year-old white female with history of a psychiatric disorder and constipation, who presents with atypical affect and has been noncompliant in the past with Gastroenterology recommendations. I have recommended to her on a periodic basis to choose a colonic purging in the form of either GoLYTELY and tap water enemas, but the patient has been extremely resistant. She also does not follow doctor's recommendations. On multiple occasions, I did advise her to consult University input regarding colonic motility disorder, but she has deferred this as well. On evaluation today, the patient is significantly improved relative to being seen in the office as indicated above. I did recommend to her again colon prep on a periodic basis and dietary discretion. Would tend to avoid extremely high-fiber diet and she will probably do well to the point of using a colonic motility drugs in the form of either Amitiza or Linzess and a soft low residue diet. In the hospital, suggest advance her diet as tolerated and I feel based on her evaluation at bedside that the patient does not need further hospitalization. Dimitri Herrera DO, PhD MTDEve
[2018-03-05 07:12] LABS: BASO # 0.12 K/mm3 (0.0-2.0); EOS # 0.3 (0.0-0.7); EOS % 4.6 % (1.5-5.0); GRAN # 3.03 (1.4-6.5); GRAN % 49.9 % (50.0-68.0); HEMOGLOBIN 12.5 g/dL (12.0-16.0); LYMPH # 2.2 (1.2-3.4); LYMPH % 36.6 % (22.0-35.0); MEAN CELL VOLUME 87.7 fl (80.0-105.0); MEAN CORPUSCULAR HEMOGLOBIN 29.5 pg (25.0-35.0); MEAN CORPUSCULAR HGB CONC 33.6 g/dl (31.0-37.0); MEAN PLATELET VOLUME 9.4 fl (7.0-11.0); MONO # 0.4 (0.1-0.6); MONO % 6.9 % (1.0-6.0); RBC 4.24 10^6/uL (3.5-6.1); RED CELL DISTRIBUTION WIDTH 13.3 % (11.5-14.5); WHITE BLOOD COUNT 6.1 10^3/ul (4.5-11.0)
[2018-03-05 07:18] LABS: BLOOD UREA NITROGEN 3 mg/dL (7-21); CALCIUM 8.8 mg/dL (8.4-10.5); GFR AFRICAN-AMERICAN > 60; GFR NON-AFRICAN AMERICAN > 60
[2018-03-05] MEDS: POLYETHYLENE GLYCOL 3350 17 GM/Dose PACKET PO SCH (09:21)
--- NOTE | 2018-03-05 14:33 | HP ---
CHIEF COMPLAINT: Abdominal pain, constipation. HISTORY OF PRESENT ILLNESS: This is a 67-year-old woman whose past medical history includes depression, anxiety, who comes to the Emergency Room after being followed by her foreclosure home inspector because of abdominal pain and constipation. She had been given a variety of treatments with limited compliance and limited success and tried taking an enema with only watery return, passed some stool yesterday, but the abdominal pain became severe, so she came to the Emergency Room. PAST MEDICAL HISTORY: Significant for severe pancreatitis with a several month hospitalization at [facility] many years ago, chronic abdominal pain as well as a long history of mental illness, depression and anxiety. SOCIAL HISTORY: She is . She does not smoke or drink alcohol any longer than her positive history in the past. ALLERGIES: SHE SAID SHE IS ALLERGIC TO MORPHINE WHICH CAUSES ITCHING. MEDICATIONS: Include tramadol, Zyprexa, Xanax. PHYSICAL EXAMINATION: GENERAL: Patient was seen this Thursday morning in room 570, bed 1, resting comfortably in bed. She has just been visited by her foreclosure home inspector, Dr. Dimitri Herrera. She is awake, alert and clear. Mental status is clear, although her baseline is somewhat sleepy with flattened affect. HEAD AND NECK: Unremarkable. Skin is a bit pale. Conjunctiva is pink. Mucous membranes moist. Neck is supple without masses. LUNGS: Clear with good aeration. HEART: Regular. BREASTS: Not examined. ABDOMEN: Soft. There is no guarding or rebound. I did not feel any palpable mass other than some stool on the left side. EXTREMITIES: Thin with no edema. IMPRESSION: 1. Acute abdominal pain. 2. History of chronic constipation. 3. History of pancreatitis. 4. History of depression and anxiety. PLAN: Patient is already admitted to medical floor for overnight observation as of early this morning. I will follow the bowel prep as ordered by foreclosure home inspector, Dr. Dimitri Herrera. I will give this patient her dose of MiraLax today. I will leave the Amitiza and other medications up to GI. Hopefully, medications and enemas if indicated would resolve the problem and she will be ready for discharge soon. Sami Villarreal MD [facility] # [id number]
[2018-03-05] MEDS: Magnesium Citrate Oral SOL (300 ml) PO ONE ×2 (17:45→17:54)
[2018-03-05] MEDS ORDERED: Magnesium Hydroxide Susp 30 ml UD PO ONE (18:47)
--- NOTE | 2018-03-06 08:44 | PN ---
DATE: 03/06/2018 SUBJECTIVE: I saw Ms. Mcgowan this morning. She is a 67-year-old white female with history of depression, anxiety, noncompliance, chronic motility disorder, admitted because of severe abdominal pain. At the bedside this morning, the patient denied any abdominal pain; indicated that after eating yesterday, pain was substantially increased. I reviewed the nurses' notes regarding administration of different medications and results. Note that initial consultation on 03/04/2018 revealed there were scattered areas of stool present in the colon, but her exam was significantly improved relative to her evaluation in my office, but that the patient has a history of medication noncompliance and an atypical affect. She has deferred on multiple occasions, recommendation to seek University input on her "abdominal pain issue." PHYSICAL EXAMINATION: VITAL SIGNS: I reviewed this patient's vital signs. HEENT: Noncontributory. LUNGS: Decreased breath sounds at basilar part. HEART: Irregular rhythm. ABDOMEN: Soft. No tenderness elicited in any quadrant. Bowel sounds are irregular, but present. LABORATORY DATA: Abdomen CT was reviewed as part of consultation and was noncontributory except for scattered areas of stool. I reviewed the patient's laboratory data. OVERALL ASSESSMENT: This is a 67-year-old white female, with history of psych disorder, noncompliance and chronic motility disorder, and treated with motility agents on the outside. She was recommended on multiple occasions to use the combination of modalities including water enemas followed by either mag citrate or mini colon preps. This has been successful in the past. As far as the abdominal pain which prompted this admission, the patient's abdomen exam is totally benign. Whether the pain actually increases after eating and to what degree, is debatable at this point in time. Note that the patient has been taking analgesics for back pain. I suggest to her on multiple occasions, the regimen mentioned above, but the patient continues to be noncompliant. As far as the abdominal pain is concerned, which prompted this admission, again the patient's abdomen is benign, and if pain actually is present after eating, one might consider a mesenteric ischemic type of picture and this could be further evaluated in the University type atmosphere. As far as this admission is concerned, I reviewed Dr. Villarreal's note and there is not much more I can offer at this point in time. I will sign off the case today. Dimitri Herrera DO, PhD MONSERRAT
[2018-03-06] MEDS: POLYETHYLENE GLYCOL 3350 17 GM/Dose PACKET PO SCH (09:12)
--- NOTE | 2018-03-06 11:50 | PN ---
DATE: 03/05/2018 SUBJECTIVE: The patient is a 67-year-old female with a history of bipolar disorder, constipation, depression, gastritis who was admitted yesterday complaining of abdominal pain. The patient had several complaints of abdominal pain in the past. She is followed by Dr. Dimitri Herrera, her dietary worker. When seen, the patient is sitting up in the chair at bedside. She appears to be comfortable. However, she does complain of abdominal pain. Abdomen is soft, nontender. No rebound tenderness. There are normal bowel sounds on palpation. However, the patient complains of discomfort. She feels she is constipated. She defers Fleet Enema. I suggested a soapsuds enema and if that does not work to be followed by truman. Serum chemistries and CBC are normal. Today, her vital signs are stable. Dr. Herrera's note is appreciated. Unfortunately, the hospital formulary does not carry either Linzess nor Amitiza, so we are continuing with the citrate narendra magnankur and soapsuds enema as mentioned above. The patient to be reevaluated in the morning. Jared Villarreal MD
--- NOTE | 2018-03-06 12:22 | PN ---
DATE: 03/06/2018 SUBJECTIVE: The patient is a 67-year-old female with a history of bipolar disorder, constipation, gastritis and depression who was admitted 2 days ago complaining of abdominal pain. CAT scan of the abdomen was essentially negative. Urinalysis was negative. CBC, chemistries were negative. Her blood pressure and vital signs were stable. So, the patient was being treated with cathartics. Attempts were made with soapsuds enema and citrate of magnesia. Today, the patient appears more comfortable, less pain, less abdominal discomfort. I placed a phone call to her , Gume for discharge planning. Left a message on his answering machine. We will continue to follow the patient. Dr. Herrera's note is appreciated. Dr. Herrera, the air traffic control manager has signed off on the case that there is nothing more that he can offer for this patient. Jared Villarreal MD
[2018-03-06] MEDS ORDERED: Magnesium Citrate Oral SOL (300 ml) PO ONE (17:30)
[2018-03-06 21:15] VITALS: BP 146/90; PULSE 74; RESP 18; TEMP 99; O2SAT 97
== END 2018-03-06 21:14 | disposition home or self-care (01) ==
LOC: ED 20:44 → ERH 03-04 01:57 → 5RSO 03-04 04:03
PROVIDERS: ADMIT Internal Medicine; ATTEND Internal Medicine
DX: R10.9 Unspecified abdominal pain (principal); K59.00 Constipation, unspecified; F31.9 Bipolar disorder, unspecified; K29.70 Gastritis, unspecified, without bleeding; F41.9 Anxiety disorder, unspecified; K21.9 Gastro-esophageal reflux disease without esophagitis; F20.9 Schizophrenia, unspecified; Z87.440 Personal history of urinary (tract) infections; Z91.14 Patient's other noncompliance with medication regimen; Z91.19 Patient's noncompliance with other medical treatment and regimen
CPT/HCPCS: 36415; 74177; 80048; 80053; 81003; 82150; 83690; 83735; 85025; 87086; 96374; 96375; 96376; 99285; G0378; J1885; J2270; J2405; J7030; Q9967

== ENCOUNTER 2018-07-05 10:01 | Emergency (ER) | payer MEDICARE, BC ==
[2018-07-05 10:13] VITALS: BMI 21.6
[2018-07-05 10:30] VITALS: RESP 18; TEMP 97.9
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
[2018-07-05 11:34] LABS: BASO # 0.06 K/mm3 (0.0-2.0); BASO % 0.5 % (0.0-3.0); EOS # 0.1 (0.0-0.7); EOS % 0.8 % (1.5-5.0); GRAN # 9.47 (1.4-6.5); GRAN % 74.2 % (50.0-68.0); HEMOGLOBIN 15.3 g/dL (12.0-16.0); LYMPH # 2.7 (1.2-3.4); MEAN CELL VOLUME 90.1 fl (80.0-105.0); MEAN CORPUSCULAR HEMOGLOBIN 30.9 pg (25.0-35.0); MEAN CORPUSCULAR HGB CONC 34.3 g/dl (31.0-37.0); MEAN PLATELET VOLUME 9.6 fl (7.0-11.0); MONO # 0.4 (0.1-0.6); MONO % 3.5 % (1.0-6.0); RBC 4.95 10^6/uL (3.5-6.1); RED CELL DISTRIBUTION WIDTH 14.8 % (11.5-14.5); WHITE BLOOD COUNT 12.8 10^3/uL (4.5-11.0)
[2018-07-05 11:41] LABS: INR 0.97; PROTHROMBIN TIME 11.2 SECONDS (9.4-12.5)
[2018-07-05 11:42] LABS: ALB/GLOB RATIO 1.1 (1.1-1.8); ALBUMIN 3.7 g/dL (3.0-4.8); ALT/SGPT 26 U/L (7-56); AST/SGOT 29 U/L (14-36); BLOOD UREA NITROGEN 26 mg/dL (7-21); CALCIUM 9.2 mg/dL (8.4-10.5); GFR NON-AFRICAN AMERICAN > 60
[2018-07-05 11:52] LABS: TROPONIN I < 0.01 ng/mL
[2018-07-05] MEDS ORDERED: Iohexol 350 MG/100 ML VIAL ONE (12:00)
--- NOTE | 2018-07-05 12:37 | CT ---
Date of service: 07/05/2018 PROCEDURE: CT Chest with contrast (Pulmonary Angiogram) HISTORY: pulmonary embolism COMPARISON: None available. TECHNIQUE: Axial computed tomography images were obtained of the chest in the pulmonary arterial phase of enhancement. Coronal and sagittal reformatted images were created and reviewed. Intravenous contrast dose: 100 cc of Omni 350 Radiation dose: Total exam DLP = 198.96 mGy-cm. This CT exam was performed using one or more of the following dose reduction techniques: Automated exposure control, adjustment of the mA and/or kV according to patient size, and/or use of iterative reconstruction technique. FINDINGS: PULMONARY ARTERIES: Unremarkable. No pulmonary embolism. AORTA: No acute findings. No thoracic aortic aneurysm. No aortic atherosclerotic calcification or mural plaque present. LUNGS: Unremarkable. No nodule, mass or pulmonary consolidation. PLEURAL SPACES: Unremarkable. No effusion or pneumothorax. HEART: Unremarkable. No cardiomegaly. No significant pericardial effusion. LYMPH NODES: No lymphadenopathy. BONES, CHEST WALL: Unremarkable. No fracture or destructive lesion OTHER FINDINGS: Unremarkable. IMPRESSION: Unremarkable CT pulmonary angiogram. No pulmonary embolus.
--- NOTE | 2018-07-05 13:31 | CARD ---
APPROVED REPORT Date of service: 07/05/2018 EKG Measurement Heart [id number] IN 100P-3 [id number] <Conclusion> Sinus tachycardia with short IN Nonspecific ST and T wave abnormality Abnormal ECG
[2018-07-05] MEDS ORDERED: Oxycodone/Acetaminophen 5/325 mg Tab PO STA (13:41)
[2018-07-05 15:33] VITALS: BP 121/78; PULSE 94; O2SAT 95
== END 2018-07-05 15:46 | disposition home or self-care (01) ==
LOC: ED 10:01
DX: R06.02 Shortness of breath (principal); K21.9 Gastro-esophageal reflux disease without esophagitis; F41.9 Anxiety disorder, unspecified
CPT/HCPCS: 71275; 80053; 84484; 85025; 85610; 85730; 93005; 99285; Q9967

== ENCOUNTER 2018-07-13 09:19 | Emergency (ER) | payer MEDICARE, BC ==
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
[2018-07-13 10:19] VITALS: BMI 20.9
[2018-07-13 10:20] VITALS: TEMP 98.2
[2018-07-13] MEDS ORDERED: Lidocaine 5% Patch TD ONE (10:42)
[2018-07-13 11:18] LABS: URINE APPEARANCE CLEAR (CLEAR); URINE BILIRUBIN NEGATIVE (NEGATIVE); URINE BLOOD NEGATIVE (NEGATIVE); URINE COLOR YELLOW (YELLOW); URINE GLUCOSE (UA) NEGATIVE (NEGATIVE); URINE PROTEIN NEGATIVE mg/dL (<30 mg/dL)
[2018-07-13 11:19] LABS: URINE LEUKOCYTE ESTERASE NEGATIVE Leu/uL (NEGATIVE); URINE UROBILINOGEN 0.2 E.U./dL (<1 E.U./dL)
[2018-07-13 12:03] VITALS: BP 160/94; PULSE 72; RESP 16; O2SAT 99
== END 2018-07-13 12:02 | disposition home or self-care (01) ==
LOC: ED 09:19
DX: G89.29 Other chronic pain (principal); M54.5 Low back pain; F20.9 Schizophrenia, unspecified; F17.210 Nicotine dependence, cigarettes, uncomplicated
CPT/HCPCS: 81003; 96372; 99282; J1885

== ENCOUNTER 2018-07-18 10:39 | Emergency (ER) | payer MEDICARE, BC ==
[2018-07-18 10:39] VITALS: BMI 20.9
[2018-07-18 10:52] VITALS: BP 139/77; PULSE 96; RESP 18; TEMP 98; O2SAT 100
[2018-07-18] MEDS ORDERED: Lidocaine 5% Patch TD ONE (10:59)
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
== END 2018-07-18 13:16 | disposition home or self-care (01) ==
LOC: ED 10:39
DX: M54.9 Dorsalgia, unspecified (principal); G89.29 Other chronic pain
CPT/HCPCS: 99283; J1885

== ENCOUNTER 2018-07-20 16:02 | Emergency (ER) | payer MEDICARE, BC ==
[2018-07-20 16:03] VITALS: BMI 20.9
[2018-07-20 16:35] VITALS: PULSE 85; TEMP 98.5; O2SAT 97
--- NOTE | 2018-07-20 16:53 | RAD ---
Date of service: 07/20/2018 HISTORY: SOB COMPARISON: 06/26/2017 FINDINGS: LUNGS: No active pulmonary disease. PLEURA: No significant pleural effusion identified, no pneumothorax apparent. CARDIOVASCULAR: No atherosclerotic calcification present Normal. OSSEOUS STRUCTURES: No significant abnormalities. VISUALIZED UPPER ABDOMEN: Normal. OTHER FINDINGS: None. IMPRESSION: No active disease. No significant interval change compared to the prior examination(s).
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
[2018-07-20 17:37] LABS: URINE APPEARANCE SL CLOUDY (CLEAR); URINE BILIRUBIN NEGATIVE (NEGATIVE); URINE BLOOD NEGATIVE (NEGATIVE); URINE COLOR YELLOW (YELLOW); URINE GLUCOSE (UA) NEGATIVE (NEGATIVE); URINE LEUKOCYTE ESTERASE NEGATIVE Leu/uL (NEGATIVE); URINE PROTEIN TRACE mg/dL (<30 mg/dL); URINE UROBILINOGEN 0.2 E.U./dL (<1 E.U./dL)
[2018-07-20 17:38] LABS: URINE EPITHELIAL CELLS 0 - 2 /hpf (0-5); URINE RBC NEGATIVE /hpf (0-2); URINE WBC 0 - 2 /hpf (0-6)
[2018-07-20 17:39] LABS: BASO # 0.08 K/mm3 (0.0-2.0); EOS # 0.1 (0.0-0.7); EOS % 1.8 % (1.5-5.0); GRAN # 5.11 (1.4-6.5); GRAN % 64.8 % (50.0-68.0); HEMOGLOBIN 12.9 g/dL (12.0-16.0); LYMPH # 2.1 (1.2-3.4); LYMPH % 26.4 % (22.0-35.0); MEAN CELL VOLUME 91.9 fl (80.0-105.0); MEAN CORPUSCULAR HEMOGLOBIN 30.6 pg (25.0-35.0); MEAN CORPUSCULAR HGB CONC 33.2 g/dl (31.0-37.0); MEAN PLATELET VOLUME 9.9 fl (7.0-11.0); MONO # 0.5 (0.1-0.6); RBC 4.22 10^6/uL (3.5-6.1); WHITE BLOOD COUNT 7.9 10^3/uL (4.5-11.0)
[2018-07-20 17:40] LABS: INR 0.86; PARTIAL THROMBOPLASTIN TIME 27.7 Seconds (25.1-36.5)
[2018-07-20 17:53] LABS: ACETAMINOPHEN < 10.0 ug/ml (10.0-20.0); SALICYLATE < 1 mg/dL (2.0-20.0)
[2018-07-20 18:01] LABS: ALB/GLOB RATIO 1.2 (1.1-1.8); ALT/SGPT 31 U/L (7-56); AST/SGOT 28 U/L (14-36); B-TYPE NATRIURETIC PEPTIDE 280 pg/mL (0-450); BLOOD UREA NITROGEN 11 mg/dL (7-21); GFR NON-AFRICAN AMERICAN > 60; TROPONIN I < 0.01 ng/mL
[2018-07-20 18:06] LABS: PROTHROMBIN TIME 9.8 SECONDS (9.4-12.5)
[2018-07-20 18:52] LABS: VENOUS BLOOD GAS BASE EXCESS -1.2 mmol/L (0.0-2.0); VENOUS BLOOD GAS PO2 139 mm/Hg (30-55); VENOUS BLOOD PH 7.39 (7.32-7.43)
--- NOTE | 2018-07-20 18:59 | CARD ---
APPROVED REPORT Date of service: 07/20/2018 EKG Measurement Heart [id number] <Conclusion> Sinus rhythm with short GA Nonspecific ST abnormality Abnormal ECG
[2018-07-20 19:01] VITALS: BP 127/64; RESP 16
[2018-07-20 19:12] LABS: OPIATES, UR NEGATIVE (NEGATIVE)
[2018-07-20 19:22] LABS: BARBITURATES, UR NEGATIVE (NEGATIVE); BENZODIAZEPINES, UR NEGATIVE (NEGATIVE); PHENCYCLIDINE, UR NEGATIVE (NEGATIVE)
== END 2018-07-20 19:20 | disposition home or self-care (01) ==
LOC: ED 16:02
DX: F41.9 Anxiety disorder, unspecified (principal); M54.9 Dorsalgia, unspecified; I10 Essential (primary) hypertension; K21.9 Gastro-esophageal reflux disease without esophagitis; F17.210 Nicotine dependence, cigarettes, uncomplicated
CPT/HCPCS: 71045; 80053; 81001; 82550; 82803; 83615; 83735; 83880; 84484; 85025; 85610; 85730; 93005; 96374; 96375; 99283; G0480; J2930

== ENCOUNTER 2018-07-24 08:35 | Emergency (ER) | payer MEDICARE, BC ==
[2018-07-24 08:35] VITALS: BMI 20.9
[2018-07-24 08:46] VITALS: BP 107/78; PULSE 98; RESP 18; TEMP 98.5; O2SAT 96
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
== END 2018-07-24 11:14 | disposition home or self-care (01) ==
LOC: ED 08:35
DX: G89.29 Other chronic pain (principal); M54.5 Low back pain; F17.210 Nicotine dependence, cigarettes, uncomplicated; F20.9 Schizophrenia, unspecified; I10 Essential (primary) hypertension
CPT/HCPCS: 99282; J1885

== ENCOUNTER 2018-08-07 20:54 | Emergency (ER) | payer MEDICARE, BC ==
[2018-08-07 20:54] VITALS: BMI 20.9
[2018-08-07 21:26] VITALS: TEMP 97.8
[2018-08-07] MEDS ORDERED: Lidocaine 5% Patch TD STA (22:29)
[2018-08-07] MEDS ORDERED: Meloxicam 7.5 MG TAB PO STA (22:31)
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
[2018-08-08 00:27] VITALS: BP 135/74; PULSE 84; RESP 16; O2SAT 99
[2018-08-08] MEDS ORDERED: Meloxicam 7.5 MG TAB PO SCH (10:00)
[2018-08-08] MEDS ORDERED: Lidocaine 5% Patch TD SCH (10:00)
== END 2018-08-08 00:25 | disposition home or self-care (01) ==
LOC: ED 20:54
DX: G89.29 Other chronic pain (principal); M54.5 Low back pain; F17.210 Nicotine dependence, cigarettes, uncomplicated; F20.9 Schizophrenia, unspecified; F31.9 Bipolar disorder, unspecified

== ENCOUNTER 2018-08-08 04:20 | Emergency (ER) | payer MEDICARE, BC ==
[2018-08-08 04:20] VITALS: BMI 20.9
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
[2018-08-08 05:50] VITALS: RESP 18; O2SAT 97
[2018-08-08] MEDS ORDERED: Oxycodone/Acetaminophen 5/325 mg Tab PO STA (05:54)
--- NOTE | 2018-08-08 07:22 | ED PDOC ---
Physical Exam Vital Signs Temp Pulse Resp BP Pulse Ox 08/08/18 05:25 97.5 F L 91 H 18 155/108 H 97 Medical Decision Making ED Course and Treatment: 08/08/18 07:21 Case endorsed to me by Dr. Mazariegos, pending PMD evaluation. 08/08/18 08:20 Upon reeval, pt no longer wants to wait in emergency department. Requesting immediate d/c. PMD updated. - Medication Orders Current Medication Orders: Discontinued Medications Oxycodone/Acetaminophen (Percocet 5/325 Mg Tab) 1 tab PO STAT STA Stop: 08/08/18 05:55 Last Admin: 08/08/18 06:30 Dose: 1 tab MAR Pain Assessment Document 08/08/18 06:30 RD (Rec: 08/08/18 06:40 RD [id number]) Pain Reassessment Is this a pain reassessment? No Sleep Is patient sleeping during reassessment? No Presence of Pain Presence of Pain Yes - Scribe Statement The provider has reviewed the documentation as recorded by the Scribchantel Gilmore All medical record entries made by the Scribe were at my direction and personally dictated by me. I have reviewed the chart and agree that the record accurately reflects my personal performance of the history, physical exam, medical decision making, and the department course for this patient. I have also personally directed, reviewed, and agree with the discharge instructions and disposition. Disposition/Present on Arrival - Present on Arrival Any Indicators Present on Arrival: No History of DVT/PE: No History of Uncontrolled Diabetes: No Urinary Catheter: No History of Decub. Ulcer: No History Surgical Site Infection Following: None - Disposition Have Diagnosis and Disposition been Completed?: Yes Diagnosis: Back pain Disposition: HOME/ ROUTINE Disposition Time: 09:00 Condition: STABLE Discharge Instructions (ExitCare): Low Back Pain (DC) Additional Instructions: return to er with worsening symptoms or concerns. follow up with your pmd. Forms: [employer] (Macedonian)
[2018-08-08 09:06] VITALS: BP 145/87
[2018-08-08 09:24] VITALS: PULSE 81; TEMP 98.1
--- NOTE | 2018-08-08 20:30 | CARD ---
APPROVED REPORT Date of service: 08/08/2018 EKG Measurement Heart [id number] <Conclusion> Sinus rhythm with premature atrial complexes Possible Left atrial enlargement Nonspecific ST abnormality Abnormal ECG
== END 2018-08-08 09:00 | disposition home or self-care (01) ==
LOC: ED 04:20
DX: M54.5 Low back pain (principal)

== ENCOUNTER 2018-08-09 02:27 | Inpatient (IN) | payer MEDICARE, BC ==
[2018-08-09] MEDS ORDERED: Morphine 2 mg/ml ISec IVP STA (03:42)
[2018-08-09 04:55] LABS: BASO # 0.04 K/mm3 (0.0-2.0); BASO % 0.3 % (0.0-3.0); EOS % 0.1 % (1.5-5.0); GRAN # 10.16 (1.4-6.5); GRAN % 74.3 % (50.0-68.0); HEMOGLOBIN 14.2 g/dL (12.0-16.0); LYMPH # 2.5 (1.2-3.4); LYMPH % 18.6 % (22.0-35.0); MEAN CELL VOLUME 91.4 fl (80.0-105.0); MEAN CORPUSCULAR HEMOGLOBIN 31.3 pg (25.0-35.0); MEAN CORPUSCULAR HGB CONC 34.2 g/dl (31.0-37.0); MEAN PLATELET VOLUME 9.9 fl (7.0-11.0); MONO # 0.9 (0.1-0.6); MONO % 6.7 % (1.0-6.0); RBC 4.54 10^6/uL (3.5-6.1); RED CELL DISTRIBUTION WIDTH 13.8 % (11.5-14.5); WHITE BLOOD COUNT 13.7 10^3/uL (4.5-11.0)
[2018-08-09 05:50] LABS: ALB/GLOB RATIO 1.3 (1.1-1.8); ALBUMIN 4.7 g/dL (3.0-4.8); ALT/SGPT 16 U/L (7-56); AST/SGOT 26 U/L (14-36); BLOOD UREA NITROGEN 13 mg/dL (7-21); CALCIUM 9.7 mg/dL (8.4-10.5); GFR NON-AFRICAN AMERICAN > 60
[2018-08-09] MEDS ORDERED: Iohexol 350 MG/100 ML VIAL ONE (05:59)
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
[2018-08-09] MEDS ORDERED: Sodium Chloride 0.9% 1,000 ML IV STA (06:37)
--- NOTE | 2018-08-09 09:12 | RAD ---
Date of service: 08/09/2018 HISTORY: shortness of breath COMPARISON: 07/20/2018 FINDINGS: LUNGS: No active pulmonary disease. PLEURA: No significant pleural effusion identified, no pneumothorax apparent. CARDIOVASCULAR: No aortic atherosclerotic calcification present. Normal cardiac size. No pulmonary vascular congestion. OSSEOUS STRUCTURES: No significant abnormalities. VISUALIZED UPPER ABDOMEN: Normal. OTHER FINDINGS: None. IMPRESSION: No active disease.
--- NOTE | 2018-08-09 09:22 | ED PDOC ---
Physical Exam Vital Signs Temp Pulse Resp BP Pulse Ox 08/09/18 02:36 98.4 F 80 20 158/91 H 100 Medical Decision Making ED Course and Treatment: 08/09/18 09:[address] mayra kline. patient to be admitted for further eval and tx abdominal pain. - Lab Interpretations Lab Results: 08/09/18 04:23 08/09/18 04:45 Lab Results 08/09/18 04:45: Lipase 54 08/09/18 04:45: Sodium 132, Potassium 3.8, Chloride 100, Carbon Dioxide 22, Anion Gap 14, BUN 13, Creatinine 0.6 L, Est GFR ( Amer) > 60, Est GFR (Non-Af Amer) > 60, Random Glucose 112 H, Calcium 9.7, Phosphorus 3.5, Magnesium 1.9, Total Bilirubin 0.9, AST 26, ALT 16, Alkaline Phosphatase 77, Total Protein 8.2, Albumin 4.7, Globulin 3.5, Albumin/Globulin Ratio 1.3 08/09/18 04:23: WBC 13.7 H D, RBC 4.54, Hgb 14.2, Hct 41.5, MCV 91.4, MCH 31.3, MCHC 34.2, RDW 13.8, Plt Count 431, MPV 9.9, Gran % 74.3 H, Lymph % (Auto) 18.6 L, Kay % (Auto) 6.7 H, Eos % (Auto) 0.1 L, Baso % (Auto) 0.3, Gran # 10.16 H, Lymph # (Auto) 2.5, Kay # (Auto) 0.9 H, Eos # (Auto) 0.0, Baso # (Auto) 0.04 - RAD Interpretation Radiology Orders: 08/09/18 03:42 ABD & PELVIS IV CONTRAST ONLY [CT] Stat 08/09/18 03:52 CXR [CHEST PORTABLE] [RAD] Stat - Medication Orders Current Medication Orders: Discontinued Medications Famotidine (Pepcid) 20 mg IVP STAT STA Stop: 08/09/18 03:43 Last Admin: 08/09/18 04:10 Dose: 20 mg IVP Administration Document 08/09/18 04:10 RG (Rec: 08/09/18 06:00 RG [facility] [id number] Charges for Administration # of IVP Administrations 1 Sodium Chloride (Sodium Chloride 0.9%) 1,000 mls @ 999 mls/hr IV .Q1H1M STA Stop: 08/09/18 07:37 Last Admin: 08/09/18 06:40 Dose: 999 mls/hr eMAR Start Stop Document 08/09/18 06:40 RG (Rec: 08/09[facility]18 07[id number] Intravenous Solution Start Date 08/09/18 Start Time 06:40 Morphine Sulfate (Morphine) 2 mg IVP STAT STA Stop: 08/09/18 03:43 Last Admin: 08/09/18 04:00 Dose: 2 mg MAR Pain Assessment Document 08/09/18 04:00 RG (Rec: 08/09/18 05:[address]) Pain Reassessment Is this a pain reassessment? Yes Sleep Is patient sleeping during reassessment? No Presence of Pain Presence of Pain Yes Location Pain Location Body Site Abdomen Description Pain Behavior Rubbing Site IVP Administration Document 08/09/18 04:00 RG (Rec: 08/09/18 05:[address]) Charges for Administration # of IVP Administrations 1 Re-Assess: MAR Pain Assessment Document 08/09/18 05:00 RG (Rec: 08/09/18 06:[address]) Pain Reassessment Is this a pain reassessment? Yes Sleep Is patient sleeping during reassessment? Yes Pantoprazole Sodium (Protonix Inj) 40 mg IVP STAT STA Stop: 08/09/18 03:43 Last Admin: 08/09/18 04:19 Dose: 40 mg IVP Administration Document 08/09/18 04:19 RG (Rec: 08/09/18 06:00 [place] [id number]-) Charges for Administration # of IVP Administrations 1 Disposition/Present on Arrival - Present on Arrival Any Indicators Present on Arrival: No History of DVT/PE: No History of Uncontrolled Diabetes: No Urinary Catheter: No History of Decub. Ulcer: No History Surgical Site Infection Following: None - Disposition Have Diagnosis and Disposition been Completed?: Yes Diagnosis: Abdominal pain Disposition: HOSPITALIZED Disposition Time: 09:22 Patient Plan: Admission Patient Problems: Current Active Problems Problem Status Onset Abdominal pain Acute Condition: STABLE Forms: [employer] (Nepali)
[2018-08-09] MEDS ORDERED: Meloxicam 7.5 MG TAB PO SCH (10:00)
[2018-08-09] MEDS: Sodium Chloride 0.9% 1,000 ML IV SCH (10:25)
[2018-08-09] MEDS: Oxycodone/Acetaminophen 5/325 mg Tab PO PRN ×2 (10:26→18:17)
[2018-08-09] MEDS: buPROPion 150 mg/24 Hours XL Tab PO SCH (10:27)
--- NOTE | 2018-08-09 13:43 | CT ---
Date of service: 08/09/2018 PROCEDURE: CT Abdomen and Pelvis with contrast HISTORY: acute abdominal pain COMPARISON: None. TECHNIQUE: Contrast dose: Radiation dose: Total exam DLP = 246.05 mGy-cm. This CT exam was performed using one or more of the following dose reduction techniques: Automated exposure control, adjustment of the mA and/or kV according to patient size, and/or use of iterative reconstruction technique. FINDINGS: LOWER THORAX: Right basilar linear fibrosis. LIVER: Unremarkable. No gross lesion or ductal dilatation. GALLBLADDER AND BILE DUCTS: Unremarkable. PANCREAS: Unremarkable. No gross lesion or ductal dilatation. SPLEEN: Unremarkable. ADRENALS: Unremarkable. No mass. KIDNEYS AND URETERS: Unremarkable. No hydronephrosis. No solid mass. VASCULATURE: Unremarkable. No aortic aneurysm. No aortic atherosclerotic calcification or mural plaque present. BOWEL: Unremarkable. No obstruction. No gross mural thickening. APPENDIX: Normal appendix. PERITONEUM: Unremarkable. No free fluid. No free air. LYMPH NODES: Unremarkable. No enlarged lymph nodes. BLADDER: Unremarkable. REPRODUCTIVE: Calcified leiomyomatous uterus. BONES: Left hip arthroplasty. OTHER FINDINGS: None. IMPRESSION: No acute pathology.
[2018-08-09] MEDS: POLYETHYLENE GLYCOL 3350 17 GM/Dose PACKET PO SCH ×2 (14:00→18:18)
--- NOTE | 2018-08-09 14:12 | CARD ---
APPROVED REPORT Date of service: 08/09/2018 EKG Measurement Heart [id number] <Conclusion> Sinus rhythm with premature atrial complexes Otherwise normal ECG
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
[2018-08-09 15:17] VITALS: BMI 29.2
[2018-08-09] MEDS ORDERED: Influenza Vaccine 60 mcg/0.5 mL SYR (4YR UP) IM ONE (15:18)
[2018-08-10] MEDS: Oxycodone/Acetaminophen 5/325 mg Tab PO PRN ×5 (01:29→20:30)
[2018-08-10] MEDS: metroNIDAZOLE IV 500 mg/100 ml 500 MG/100 ML BAG IVPB SCH ×3 (05:34→22:22)
[2018-08-10] MEDS: Pantoprazole 40 mg EC Tab PO SCH (05:35)
[2018-08-10] MEDS: Sodium Chloride 0.9% 1,000 ML IV SCH (05:41)
--- NOTE | 2018-08-10 07:23 | CP.PCM.PN ---
<Hector Purcell - Last Filed: 08/10/18 17:30> Subjective - Date & Time of Evaluation Date of Evaluation: 08/10/18 Time of Evaluation: 07:50 - Subjective Subjective: Hector Purcell DO, PGY1. GI Progress note for Dr Moise Patient seen and examined at bedside. No events overnight. She did not have BM yet despite starting Miralax and colace yesterday. Patient denied abdominal pain, N/V, chest pain, SOB, palpitations, fever, chills Objective - Vital Signs/Intake and Output Vital Signs (last 24 hours): Temp Pulse Resp BP Pulse Ox 97.2 F L 73 20 133/85 96 08/09/18 23:22 08/09/18 23:22 08/09/18 23:22 08/09/18 23:22 08/09/18 23:22 Intake and Output: 08/10/18 08/10/18 06:59 18:59 Intake Total 1825 Balance 1825 - Medications Medications: Current Medications Alprazolam (Xanax) 0.25 mg PO Q6H PRN PRN Reason: Anxiety Stop: 08/16/18 09:23 Bupropion HCl (Wellbutrin Xl) 150 mg PO DAILY [facility] Last Admin: 08/09/18 10:27 Dose: 150 mg Citalopram Hydrobromide (Celexa) 10 mg PO DAILY [facility] Last Admin: 08/09/18 10:30 Dose: Not Given Docusate Sodium (Colace) 100 mg PO BID [facility] Last Admin: 08/09/18 18:17 Dose: 100 mg Gabapentin (Neurontin) 100 mg PO TID [facility]; Protocol Last Admin: 08/09/18 18:17 Dose: 100 mg Sodium Chloride (Sodium Chloride 0.9%) 1,000 mls @ 80 mls/hr IV .[id number] [facility] Last Admin: 08/10/18 05:41 Dose: 80 mls/hr Ceftriaxone Sodium (Rocephin 1 Gram Ivpb) 1 gm in 100 mls @ 100 mls/hr IVPB DAILY [facility]; Protocol Metronidazole (Flagyl) 500 mg in 100 mls @ 100 mls/hr IVPB Q8 [facility]; Protocol Last Admin: 08/10/18 05:34 Dose: 100 mls/hr Magnesium Hydroxide (Milk Of Magnesia) 30 ml PO DAILY PRN PRN Reason: Constipation Oxycodone/Acetaminophen (Percocet 5/325 Mg Tab) 1 tab PO Q4H PRN PRN Reason: Pain, severe (8-10) Stop: 08/12/18 09:23 Last Admin: 08/10/18 06:10 Dose: 1 tab Pantoprazole Sodium (Protonix Ec Tab) 40 mg PO 0600 [facility] Last Admin: 08/10/18 05:35 Dose: 40 mg Polyethylene Glycol (Miralax) 17 gm PO BID [facility] Last Admin: 08/09/18 18:18 Dose: 17 gm Zolpidem Tartrate (Ambien) 5 mg PO HS PRN PRN Reason: Insomnia Last Admin: 08/09/18 22:41 Dose: 5 mg - Labs Labs: 08/09/18 04:23 08/09/18 04:45 - Additional Findings Additional findings: - Constitutional Appears: Well, No Acute Distress - Head Exam Head Exam: ATRAUMATIC, NORMAL INSPECTION, NORMOCEPHALIC - Eye Exam Eye Exam: EOMI, Normal appearance, PERRL Pupil Exam: NORMAL ACCOMODATION, PERRL - ENT Exam ENT Exam: Mucous Membranes Dry - Neck Exam Neck exam: Positive for: Normal Inspection - Respiratory Exam Respiratory Exam: Clear to Auscultation Bilateral, NORMAL BREATHING PATTERN - Cardiovascular Exam Cardiovascular Exam: REGULAR RHYTHM, +S1, +S2. absent: Gallop, Rubs - GI/Abdominal Exam GI & Abdominal Exam: Hypoactive Bowel Sounds, Soft, Tenderness (diffuse TTP in 4 quadrants). absent: Hernia, Organomegaly, Pulsatile Mass, Rebound - Back Exam Back exam: NORMAL INSPECTION - Neurological Exam Neurological exam: Alert, CN II-XII Intact, Oriented x3, Reflexes Normal - Psychiatric Exam Psychiatric exam: Normal Affect, Normal Mood - Skin Skin Exam: Dry, Intact, Normal Color, Warm Assessment and Plan - Assessment and Plan (Free Text) Assessment: 67 year old female with PMH of chronic back pain, chronic constipation, gastritis, depression, anxiety, and bipolar [place] [facility] [place] pain/back pain and nausea for the past few days Plan: Abdominal pain: -likely due to constipation. no bowel movement for 3 days. patient on percocet and tramadol for chronic back pain -CT A/P: no acute pathology. entire colon filled with stool. cecal mucosal thickening noticed -no BM despite on Miralax, colace. Miralax dose increased to TID -given lactulose 20 mg stat -continue PPI -clear liquid diet -no endoscopic evaluation needed at this time -Colonscopy as outpatient recommended Case reviewed and plan discussed with attending Dr Jose Maria Purcell, DO <Jalyn Moise V - Last Filed: 08/10/18 23:44> Objective - Vital Signs/Intake and Output Vital Signs (last 24 hours): Temp Pulse Resp BP Pulse Ox 98.6 F 71 18 147/91 H 92 L 08/10/18 23:12 08/10/18 23:12 08/10/18 23:12 08/10/18 23:12 08/10/18 23:12 Intake and Output: 08/10/18 08/11/18 18:59 06:59 Intake Total 540 Balance 540 - Medications Medications: Current Medications Acetaminophen (Tylenol 325mg Tab) 650 mg PO BID [facility] Last Admin: 08/10/18 17:05 Dose: 650 mg Alprazolam (Xanax) 0.25 mg PO Q6H PRN PRN Reason: Anxiety Stop: 08/16/18 09:23 Bupropion HCl (Wellbutrin Xl) 150 mg PO DAILY [facility] Last Admin: 08/10/18 09:39 Dose: 150 mg Citalopram Hydrobromide (Celexa) 10 mg PO DAILY [facility] Last Admin: 08/10/18 09:39 Dose: 10 mg Docusate Sodium (Colace) 100 mg PO BID [facility] Last Admin: 08/10/18 17:06 Dose: 100 mg Gabapentin (Neurontin) 100 mg PO TID [facility]; Protocol Last Admin: 08/10/18 17:06 Dose: 100 mg Ceftriaxone Sodium (Rocephin 1 Gram Ivpb) 1 gm in 100 mls @ 100 mls/hr IVPB DAILY [facility]; Protocol Last Admin: 08/10/18 09:40 Dose: 100 mls/hr Metronidazole (Flagyl) 500 mg in 100 mls @ 100 mls/hr IVPB Q8 [facility]; Protocol Last Admin: 08/10/18 22:22 Dose: 100 mls/hr Magnesium Hydroxide (Milk Of Magnesia) 30 ml PO DAILY PRN PRN Reason: Constipation Oxycodone/Acetaminophen (Percocet 5/325 Mg Tab) 1 tab PO Q4H PRN PRN Reason: Pain, severe (8-10) Stop: 08/12/18 09:23 Last Admin: 08/10/18 20:30 Dose: 1 tab Pantoprazole Sodium (Protonix Ec Tab) 40 mg PO 0600 [facility] Last Admin: 08/10/18 05:35 Dose: 40 mg Polyethylene Glycol (Miralax) 17 gm PO TID [facility] Zolpidem Tartrate (Ambien) 5 mg PO HS PRN PRN Reason: Insomnia Last Admin: 08/10/18 22:22 Dose: 5 mg - Labs Labs: 08/10/18 07:30 08/10/18 07:30 Attending/Attestation - Attestation I have personally seen and examined this patient.: Yes I have fully participated in the care of the patient.: Yes I have reviewed all pertinent clinical information, including history, physical exam and plan: Yes Notes (Text): This is an addendum to GI followup report dictated by the [employer]. The patient was seen and evaluated earlier. Medical records, lab studies, imagings were reviewed. Last 24 hours events reviewed. Agreed with the above treatment plan as outlined in [employer] 's notes with the addition of the following Patient did not have any bowel movements History of severe constipation Focal thickening in the ascending colon Admitted with abdominal pain Recommend 1 clear liquid diet 2. Increase MiraLAX to 3 times a day 3. Complete the antibiotic course 4. Elective colonoscopy 5. Advised to avoid NSAIDs 08/10/18 23:42
[2018-08-10 08:33] LABS: BASO # 0.05 K/mm3 (0.0-2.0); BASO % 0.6 % (0.0-3.0); EOS # 0.1 (0.0-0.7); EOS % 1.3 % (1.5-5.0); GRAN # 5.74 (1.4-6.5); GRAN % 65.6 % (50.0-68.0); HEMOGLOBIN 12.3 g/dL (12.0-16.0); LYMPH # 2.4 (1.2-3.4); LYMPH % 27.6 % (22.0-35.0); MEAN CELL VOLUME 92.3 fl (80.0-105.0); MEAN CORPUSCULAR HEMOGLOBIN 30.5 pg (25.0-35.0); MEAN CORPUSCULAR HGB CONC 33.1 g/dl (31.0-37.0); MONO # 0.4 (0.1-0.6); MONO % 4.9 % (1.0-6.0); RBC 4.03 10^6/uL (3.5-6.1); WHITE BLOOD COUNT 8.7 10^3/uL (4.5-11.0)
[2018-08-10 08:44] LABS: IRON 107 ug/dL (45-180)
[2018-08-10 08:53] LABS: % IRON SATURATION 37 % (20-55); TOTAL IRON BINDING CAPACITY 291 ug/dL (265-497)
[2018-08-10 09:00] LABS: FREE T4 1.21 ng/dL (0.78-2.19)
[2018-08-10 09:38] LABS: ALB/GLOB RATIO 1.4 (1.1-1.8); ALBUMIN 3.5 g/dL (3.0-4.8); ALT/SGPT 21 U/L (7-56); AMYLASE 49 U/L (35-125); AST/SGOT 15 U/L (14-36); BLOOD UREA NITROGEN 10 mg/dL (7-21); CALCIUM 8.9 mg/dL (8.4-10.5); GFR NON-AFRICAN AMERICAN > 60; LIPASE 32 U/L (23-300)
[2018-08-10] MEDS: buPROPion 150 mg/24 Hours XL Tab PO SCH (09:39)
[2018-08-10] MEDS: cefTRIAXone 1 gm 1 GM/100 ML BAG IVPB SCH (09:40)
[2018-08-10] MEDS: POLYETHYLENE GLYCOL 3350 17 GM/Dose PACKET PO SCH ×2 (09:40→17:06)
[2018-08-10] MEDS: Magnesium Hydroxide Susp 30 ml UD PO PRN (10:21)
--- NOTE | 2018-08-10 11:02 | CON ---
DATE: 08/10/2018 HISTORY OF PRESENT ILLNESS: A 67-year-old female. She was admitted to the emergency room on 08/09/2018 with the complaint of back pain and x-ray of cervical spine, thoracic spine, lumbar spine to the previous visit show mild osteoarthritis with no deformity and degenerative disc disease in the thoracolumbar region. There is no evidence of neuropathy. She has most of her pain in the lower lumbar spine. She has been having this for few years, getting worse last 6 months she said. The reflex showed good straight leg raise I told her that I am going to do physical therapy to regain her strength which will be the nucleus of getting better without surgery and eventually she may have to go to see a spine surgeon if things do not workout. Right now, I am going to treat her conservatively for the degenerative disc disease and osteoarthritis of cervical, dorsal, lumbar spine with aggressive physical therapy to do paraspinal muscle exercises and to stretch the hamstrings and to do pelvic tilt exercises and education of not lifting heavy things and minimize stairs and not lift heavy things along with extension of the spine may aggravate her symptoms. FINAL DIAGNOSES: Osteoarthritis of cervical, dorsal and lumbar spine with good prognosis for improvement with physical therapy to strengthen and stretch the muscles of her paraspinal muscles. Jared Navarro DO [id number]
[2018-08-10 11:27] LABS: URINE BILIRUBIN NEGATIVE (NEGATIVE); URINE BLOOD TRACE-LYSED (NEGATIVE); URINE GLUCOSE (UA) 100 mg/dL (NEGATIVE); URINE LEUKOCYTE ESTERASE NEGATIVE Leu/uL (NEGATIVE); URINE PROTEIN NEGATIVE mg/dL (<30 mg/dL); URINE UROBILINOGEN 0.2 E.U./dL (<1 E.U./dL)
[2018-08-10 11:29] LABS: URINE APPEARANCE CLEAR (CLEAR); URINE COLOR YELLOW (YELLOW)
[2018-08-10 11:37] LABS: URINE RBC 0 - 2 /hpf (0-2); URINE WBC 0 - 2 /hpf (0-6)
[2018-08-10 11:38] LABS: URINE BACTERIA OCC /hpf; URINE EPITHELIAL CELLS 0 - 2 /hpf (0-5)
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
[2018-08-10 16:51] LABS: FOLATE 7.1 ng/mL
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
--- NOTE | 2018-08-11 00:18 | PN ---
DATE: 08/10/2018 SUBJECTIVE: The patient was seen this Thursday in room #566, bed 3; resting comfortably in bed, in no acute distress. When I entered the room, she was smiling, happy. Voice, tone and mood seem much improved. PHYSICAL EXAMINATION: HEAD AND NECK: Unremarkable. ABDOMEN: Soft. BACK: There is no point pain in the low back. IMPRESSION: 1. Abdominal pain, resolved. 2. Chronic low back pain. The patient seems to be doing well with meloxicam, Neurontin, Tylenol and proton pump inhibitor. 3. Depression, seems to respond to current medication regimen. 4. Noncompliance with medicines. Importance of compliance with antidepressant medicines explained again to the patient. PLAN: We will follow input from Psychiatry. We will continue current medications at this point. I spoke with the patient about her diazepam use. She has not been taking Valium for several months lately. Sami Villarreal MD
[2018-08-11] MEDS: Oxycodone/Acetaminophen 5/325 mg Tab PO PRN ×5 (02:54→23:19)
[2018-08-11] MEDS: metroNIDAZOLE IV 500 mg/100 ml 500 MG/100 ML BAG IVPB SCH ×3 (06:00→23:18)
[2018-08-11] MEDS: Pantoprazole 40 mg EC Tab PO SCH ×2 (06:00→08:25)
[2018-08-11] MEDS: POLYETHYLENE GLYCOL 3350 17 GM/Dose PACKET PO SCH ×3 (09:36→18:15)
[2018-08-11] MEDS: Magnesium Hydroxide Susp 30 ml UD PO PRN (09:36)
[2018-08-11] MEDS: cefTRIAXone 1 gm 1 GM/100 ML BAG IVPB SCH (09:38)
[2018-08-11] MEDS: buPROPion 150 mg/24 Hours XL Tab PO SCH (09:40)
--- NOTE | 2018-08-11 10:21 | CP.PCM.APN ---
Subjective - Date & Time of Evaluation Date of Evaluation: 08/11/18 Time of Evaluation: 09:15 - Subjective Subjective: Pt seen and examined at bedside. C/O abdominal pain and constipation. Stated that she has not moved her bowel x1week. Denies nausea or vomiting. Objective - Vital Signs/Intake and Output Vital Signs (last 24 hours): Temp Pulse Resp BP Pulse Ox 98.2 F 73 20 144/76 98 08/11/18 06:00 08/11/18 06:00 08/11/18 06:00 08/11/18 06:00 08/11/18 06:00 Intake and Output: 08/11/18 08/11/18 06:59 18:59 Intake Total 540 Balance 540 - Medications Medications: Current Medications Acetaminophen (Tylenol 325mg Tab) 650 mg PO BID [facility] Last Admin: 08/11/18 09:37 Dose: Not Given Alprazolam (Xanax) 0.25 mg PO Q6H PRN PRN Reason: Anxiety Stop: 08/16/18 09:23 Bupropion HCl (Wellbutrin Xl) 150 mg PO DAILY [facility] Last Admin: 08/10/18 09:39 Dose: 150 mg Citalopram Hydrobromide (Celexa) 10 mg PO DAILY [facility] Last Admin: 08/11/18 09:37 Dose: 10 mg Docusate Sodium (Colace) 100 mg PO BID [facility] Last Admin: 08/11/18 09:36 Dose: 100 mg Gabapentin (Neurontin) 100 mg PO TID [facility]; Protocol Last Admin: 08/11/18 09:37 Dose: 100 mg Ceftriaxone Sodium (Rocephin 1 Gram Ivpb) 1 gm in 100 mls @ 100 mls/hr IVPB DAILY [facility]; Protocol Last Admin: 08/11/18 09:38 Dose: 100 mls/hr Metronidazole (Flagyl) 500 mg in 100 mls @ 100 mls/hr IVPB Q8 [facility]; Protocol Last Admin: 08/11/18 06:00 Dose: 100 mls/hr Magnesium Hydroxide (Milk Of Magnesia) 30 ml PO DAILY PRN PRN Reason: Constipation Last Admin: 08/11/18 09:36 Dose: 30 ml Oxycodone/Acetaminophen (Percocet 5/325 Mg Tab) 1 tab PO Q4H PRN PRN Reason: Pain, severe (8-10) Stop: 08/12/18 09:23 Last Admin: 08/11/18 08:52 Dose: 1 tab Pantoprazole Sodium (Protonix Ec Tab) 40 mg PO 0600 [facility] Last Admin: 08/11/18 08:25 Dose: 40 mg Polyethylene Glycol (Miralax) 17 gm PO TID [facility] Last Admin: 08/11/18 09:36 Dose: 17 gm Zolpidem Tartrate (Ambien) 5 mg PO HS PRN PRN Reason: Insomnia Last Admin: 08/10/18 22:22 Dose: 5 mg - Labs Labs: 08/10/18 07:30 08/10/18 07:30 - Constitutional Appears: Well, No Acute Distress - Head Exam Head Exam: ATRAUMATIC - Eye Exam Eye Exam: Normal appearance - ENT Exam ENT Exam: Normal Exam - Neck Exam Neck Exam: Full ROM - Respiratory Exam Respiratory Exam: Clear to Ausculation Bilateral, NORMAL BREATHING PATTERN - Cardiovascular Exam Cardiovascular Exam: REGULAR RHYTHM, +S1, +S2 - GI/Abdominal Exam GI & Abdominal Exam: Tenderness - Rectal Exam Rectal Exam: Deferred - Extremities Exam Extremities Exam: Normal Inspection - Neurological Exam Neurological Exam: Alert, Awake, Oriented x3 - Psychiatric Exam Psychiatric exam: Flat Affect Assessment and Plan - Assessment and Plan (Free Text) Assessment: Pt is a 67 y.o. female with pmhx of GERD, pancreatitis, UTI, schizo, bipolar, and severe constipation who presented in ED due to abdominal pain. ITS Impressions Abdomen/Pelvis CT 08/09/18 03:42 IMPRESSION: No acute pathology. Chest X-Ray 08/09/18 03:52 IMPRESSION: No active disease. Plan: On bowel regimen per GI recs GI on consult Pending abdominal xr Meds per mar Physical therapy OOB to chair as tolerated Will continue to follow BPCI/TIC - BPCIA/TIC Educated pt/family on BPCIA/CIR/Med to Bed Programs: N/A Flyers given, including [facility] Beneficiary letter: N/A Pt/family verbalized understanding & agreed to program: N/A
--- NOTE | 2018-08-11 13:00 | CP.PCM.PN ---
<Hector Purcell - Last Filed: 08/11/18 18:03> Subjective - Date & Time of Evaluation Date of Evaluation: 08/11/18 Time of Evaluation: 08:55 - Subjective Subjective: Hector Purcell DO, PGY1. GI progress note for Dr Moise Patient seen and examined at bedside. No acute events overnight. No BM yet despite increasing Miralax dose to TID +colace+ one dose of lactulose . Tolerating her liquid diet. Denied vomiting, diarrhea, fever, chills Objective - Vital Signs/Intake and Output Vital Signs (last 24 hours): Temp Pulse Resp BP Pulse Ox 98.2 F 73 20 144/76 98 08/11/18 06:00 08/11/18 06:00 08/11/18 06:00 08/11/18 06:00 08/11/18 06:00 Intake and Output: 08/11/18 08/11/18 06:59 18:59 Intake Total 540 Balance 540 - Medications Medications: Current Medications Acetaminophen (Tylenol 325mg Tab) 650 mg PO BID [facility] Last Admin: 08/11/18 09:37 Dose: Not Given Alprazolam (Xanax) 0.25 mg PO Q6H PRN PRN Reason: Anxiety Stop: 08/16/18 09:23 Bupropion HCl (Wellbutrin Xl) 150 mg PO DAILY [facility] Last Admin: 08/10/18 09:39 Dose: 150 mg Citalopram Hydrobromide (Celexa) 10 mg PO DAILY [facility] Last Admin: 08/11/18 09:37 Dose: 10 mg Docusate Sodium (Colace) 100 mg PO BID [facility] Last Admin: 08/11/18 09:36 Dose: 100 mg Gabapentin (Neurontin) 100 mg PO TID [facility]; Protocol Last Admin: 08/11/18 09:37 Dose: 100 mg Ceftriaxone Sodium (Rocephin 1 Gram Ivpb) 1 gm in 100 mls @ 100 mls/hr IVPB DAILY [facility]; Protocol Last Admin: 08/11/18 09:38 Dose: 100 mls/hr Metronidazole (Flagyl) 500 mg in 100 mls @ 100 mls/hr IVPB Q8 [facility]; Protocol Last Admin: 08/11/18 06:00 Dose: 100 mls/hr Magnesium Hydroxide (Milk Of Magnesia) 30 ml PO DAILY PRN PRN Reason: Constipation Last Admin: 08/11/18 09:36 Dose: 30 ml Oxycodone/Acetaminophen (Percocet 5/325 Mg Tab) 1 tab PO Q4H PRN PRN Reason: Pain, severe (8-10) Stop: 08/12/18 09:23 Last Admin: 08/11/18 08:52 Dose: 1 tab Pantoprazole Sodium (Protonix Ec Tab) 40 mg PO 0600 [facility] Last Admin: 08/11/18 08:25 Dose: 40 mg Polyethylene Glycol (Miralax) 17 gm PO TID [facility] Last Admin: 08/11/18 09:36 Dose: 17 gm Zolpidem Tartrate (Ambien) 5 mg PO HS PRN PRN Reason: Insomnia Last Admin: 08/10/18 22:22 Dose: 5 mg - Labs Labs: 08/10/18 07:30 08/10/18 07:30 - Constitutional Appears: Well, No Acute Distress - Head Exam Head Exam: ATRAUMATIC, NORMAL INSPECTION, NORMOCEPHALIC - Eye Exam Eye Exam: EOMI, Normal appearance, PERRL Pupil Exam: NORMAL ACCOMODATION, PERRL - ENT Exam ENT Exam: Mucous Membranes Moist, Normal Exam - Neck Exam Neck Exam: Full ROM, Normal Inspection. absent: Lymphadenopathy - Respiratory Exam Respiratory Exam: Clear to Ausculation Bilateral, NORMAL BREATHING PATTERN - Cardiovascular Exam Cardiovascular Exam: REGULAR RHYTHM, +S1, +S2. absent: Gallop, Rubs, Murmur - GI/Abdominal Exam GI & Abdominal Exam: Soft, Tenderness (mild diffuse tenderness to palpate), Normal Bowel Sounds - Extremities Exam Extremities Exam: Full ROM, Normal Capillary Refill, Normal Inspection. absent: Joint Swelling, Pedal Edema - Back Exam Back Exam: NORMAL INSPECTION - Neurological Exam Neurological Exam: Alert, Awake, CN II-XII Intact, Oriented x3 - Psychiatric Exam Psychiatric exam: Normal Affect, Normal Mood - Skin Skin Exam: Dry, Intact, Normal Color, Warm Assessment and Plan - Assessment and Plan (Free Text) Assessment: 67 year old female with PMH of chronic back pain, chronic constipation, gastritis, depression, anxiety, and bipolar admitted to [facility] for worsening abdominal pain/back pain and nausea for the past few days Plan: Abdominal pain: -likely due to constipation. no bowel movement for 6 days. patient on percocet and tramadol for chronic back pain -CT A/P w/IV contrast: no acute pathology. entire colon filled with stool. 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 will f/u after discharge Case reviewed and plan discussed with attending Dr Jose Maria Purcell, DO <Jalyn Moise V - Last Filed: 08/11/18 23:32> Objective - Vital Signs/Intake and Output Vital Signs (last 24 hours): Temp Pulse Resp BP Pulse Ox 98.2 F 76 20 169/94 H 97 08/11/18 13:00 08/11/18 13:00 08/11/18 13:00 08/11/18 13:00 08/11/18 13:00 - Medications Medications: Current Medications Acetaminophen (Tylenol 325mg Tab) 650 mg PO BID [facility] Last Admin: 08/11/18 18:14 Dose: Not Given Alprazolam (Xanax) 0.25 mg PO Q6H PRN PRN Reason: Anxiety Stop: 08/16/18 09:23 Last Admin: 08/11/18 23:19 Dose: 0.25 mg Bupropion HCl (Wellbutrin Xl) 150 mg PO DAILY [facility] Last Admin: 08/11/18 09:40 Dose: 150 mg Citalopram Hydrobromide (Celexa) 10 mg PO DAILY [facility] Last Admin: 08/11/18 09:37 Dose: 10 mg Docusate Sodium (Colace) 100 mg PO BID [facility] Last Admin: 08/11/18 18:15 Dose: 100 mg Gabapentin (Neurontin) 100 mg PO TID [facility]; Protocol Last Admin: 08/11/18 18:15 Dose: 100 mg Ceftriaxone Sodium (Rocephin 1 Gram Ivpb) 1 gm in 100 mls @ 100 mls/hr IVPB DAILY [facility]; Protocol Last Admin: 08/11/18 09:38 Dose: 100 mls/hr Metronidazole (Flagyl) 500 mg in 100 mls @ 100 mls/hr IVPB Q8 [facility]; Protocol Last Admin: 08/11/18 23:18 Dose: 100 mls/hr Magnesium Hydroxide (Milk Of Magnesia) 30 ml PO DAILY PRN PRN Reason: Constipation Last Admin: 08/11/18 09:36 Dose: 30 ml Oxycodone/Acetaminophen (Percocet 5/325 Mg Tab) 1 tab PO Q4H PRN PRN Reason: Pain, severe (8-10) Stop: 08/12/18 09:23 Last Admin: 08/11/18 23:19 Dose: 1 tab Pantoprazole Sodium (Protonix Ec Tab) 40 mg PO 0600 [facility] Last Admin: 08/11/18 08:25 Dose: 40 mg Polyethylene Glycol (Miralax) 17 gm PO TID [facility] Last Admin: 08/11/18 18:15 Dose: 17 gm Zolpidem Tartrate (Ambien) 5 mg PO HS PRN PRN Reason: Insomnia Last Admin: 08/10/18 22:22 Dose: 5 mg - Labs Labs: 08/10/18 07:30 08/10/18 07:30 Attending/Attestation - Attestation I have personally seen and examined this patient.: Yes I have fully participated in the care of the patient.: Yes I have reviewed all pertinent clinical information, including history, physical exam and plan: Yes Notes (Text): This is an addendum to progress report dictated by the GI Resident.The patient was seen and examined earlier. Medical records, lab studies, imagings were reviewed. Last 24 hours events reviewed. Agreed with the above treatment plan as outlined in GI resident 's notes with the addition of the following 08/11/18 23:30
--- NOTE | 2018-08-11 13:34 | RAD ---
Date of service: 08/11/2018 HISTORY: abd pain COMPARISON: None available. FINDINGS: BOWEL: Normal. No obstruction. No free air. BONES: Normal. OTHER FINDINGS: None. IMPRESSION: No active disease.
[2018-08-12] MEDS ORDERED: Barium Sulfate Susp 2.1% w/v, 2.0% w/w 450 mL Bottle PO ONE (05:09)
[2018-08-12] MEDS: Oxycodone/Acetaminophen 5/325 mg Tab PO PRN ×4 (05:41→21:40)
[2018-08-12] MEDS: Pantoprazole 40 mg EC Tab PO SCH (05:42)
[2018-08-12] MEDS: metroNIDAZOLE IV 500 mg/100 ml 500 MG/100 ML BAG IVPB SCH ×2 (05:43→13:55)
--- NOTE | 2018-08-12 08:41 | CP.PCM.PN ---
<Hector Purcell - Last Filed: 08/12/18 18:44> Subjective - Date & Time of Evaluation Date of Evaluation: 08/12/18 Time of Evaluation: 07:40 - Subjective Subjective: Hector Purcell DO, PGY1. GI progress note for Dr Moise Patient seen and examined at bedside. No acute events overnight. Had 2 bowel movements yesterday after increasing Miralax dose. Tolerating her liquid diet. Denied vomiting, diarrhea, fever, chills Objective - Vital Signs/Intake and Output Vital Signs (last 24 hours): Temp Pulse Resp BP Pulse Ox 98.2 F 76 20 169/94 H 97 08/11/18 13:00 08/11/18 13:00 08/11/18 13:00 08/11/18 13:00 08/11/18 13:00 - Medications Medications: Current Medications Acetaminophen (Tylenol 325mg Tab) 650 mg PO BID [facility] Last Admin: 08/11/18 18:14 Dose: Not Given Alprazolam (Xanax) 0.25 mg PO Q6H PRN PRN Reason: Anxiety Stop: 08/16/18 09:23 Last Admin: 08/11/18 23:19 Dose: 0.25 mg Bupropion HCl (Wellbutrin Xl) 150 mg PO DAILY [facility] Last Admin: 08/11/18 09:40 Dose: 150 mg Citalopram Hydrobromide (Celexa) 10 mg PO DAILY [facility] Last Admin: 08/11/18 09:37 Dose: 10 mg Docusate Sodium (Colace) 100 mg PO BID [facility] Last Admin: 08/11/18 18:15 Dose: 100 mg Gabapentin (Neurontin) 100 mg PO TID [facility]; Protocol Last Admin: 08/11/18 18:15 Dose: 100 mg Ceftriaxone Sodium (Rocephin 1 Gram Ivpb) 1 gm in 100 mls @ 100 mls/hr IVPB DAILY [facility]; Protocol Last Admin: 08/11/18 09:38 Dose: 100 mls/hr Metronidazole (Flagyl) 500 mg in 100 mls @ 100 mls/hr IVPB Q8 [facility]; Protocol Last Admin: 08/12/18 05:43 Dose: 100 mls/hr Magnesium Hydroxide (Milk Of Magnesia) 30 ml PO DAILY PRN PRN Reason: Constipation Last Admin: 08/11/18 09:36 Dose: 30 ml Oxycodone/Acetaminophen (Percocet 5/325 Mg Tab) 1 tab PO Q4H PRN PRN Reason: Pain, severe (8-10) Stop: 08/12/18 09:23 Last Admin: 08/12/18 05:41 Dose: 1 tab Pantoprazole Sodium (Protonix Ec Tab) 40 mg PO 0600 [facility] Last Admin: 08/12/18 05:42 Dose: 40 mg Polyethylene Glycol (Miralax) 17 gm PO TID [facility] Last Admin: 08/11/18 18:15 Dose: 17 gm Zolpidem Tartrate (Ambien) 5 mg PO HS PRN PRN Reason: Insomnia Last Admin: 08/10/18 22:22 Dose: 5 mg - Labs Labs: 08/10/18 07:30 08/10/18 07:30 - Constitutional Appears: Well, No Acute Distress - Head Exam Head Exam: ATRAUMATIC, NORMAL INSPECTION, NORMOCEPHALIC - Eye Exam Eye Exam: EOMI, Normal appearance, PERRL Pupil Exam: NORMAL ACCOMODATION, PERRL - ENT Exam ENT Exam: Mucous Membranes Moist, Normal Exam - Neck Exam Neck Exam: Full ROM, Normal Inspection. absent: Lymphadenopathy - Respiratory Exam Respiratory Exam: Clear to Ausculation Bilateral, NORMAL BREATHING PATTERN. absent: Rales, Rhonchi - Cardiovascular Exam Cardiovascular Exam: REGULAR RHYTHM, +S1, +S2. absent: Gallop, Rubs, Murmur - GI/Abdominal Exam GI & Abdominal Exam: Soft, Normal Bowel Sounds. absent: Tenderness - Extremities Exam Extremities Exam: Full ROM, Normal Capillary Refill, Normal Inspection. absent: Joint Swelling, Pedal Edema - Back Exam Back Exam: NORMAL INSPECTION - Neurological Exam Neurological Exam: Alert, Awake, CN II-XII Intact, Oriented x3 - Psychiatric Exam Psychiatric exam: Normal Affect, Normal Mood - Skin Skin Exam: Dry, Intact, Normal Color, Warm Assessment and Plan - Assessment and Plan (Free Text) Assessment: 67 year old female with PMH of chronic back pain, chronic constipation, gastritis, depression, anxiety, and bipolar admitted to [facility] for worsening abdominal pain/back pain and nausea for the past few days -resolved abdominal pain -opiod induced constipation-resolved -chronic back pain Plan: -likely due to constipation. patient on percocet and tramadol for chronic back pain -CT A/P: no acute pathology. entire colon filled with stool. cecal mucosal thickening noticed -CT A/P w/oral contrast was negative -had BM yesterday after increase the dose of Miralax to TID -recommend to start Amitizia 8mcg BID for opiod induced constipation, dose may increased to 16 or 24 mcg BID accordingly -continue Miralax, colace -continue PPI -clear liquid diet. advance as tolerated -no endoscopic evaluation needed at this time -Colonscopy as outpatient recommended Case reviewed and plan discussed with attending Dr Jose Maria Purcell, DO <Jalyn Moise V - Last Filed: 08/13/18 00:10> Objective - Vital Signs/Intake and Output Vital Signs (last 24 hours): Temp Pulse Resp BP Pulse Ox 98.1 F 97 H 18 142/82 100 08/12/18 23:38 08/12/18 23:38 08/12/18 23:38 08/12/18 23:38 08/12/18 23:38 Intake and Output: 08/12/18 08/13/18 18:59 06:59 Intake Total 540 Balance 540 - Medications Medications: Current Medications Acetaminophen (Tylenol 325mg Tab) 650 mg PO BID [facility] Last Admin: 08/12/18 18:38 Dose: 650 mg Alprazolam (Xanax) 0.25 mg PO Q6H PRN PRN Reason: Anxiety Stop: 08/16/18 09:23 Last Admin: 08/12/18 21:41 Dose: 0.25 mg Bupropion HCl (Wellbutrin Xl) 150 mg PO DAILY [facility] Last Admin: 08/12/18 09:46 Dose: 150 mg Citalopram Hydrobromide (Celexa) 10 mg PO DAILY [facility] Last Admin: 08/12/18 09:46 Dose: 10 mg Docusate Sodium (Colace) 100 mg PO BID [facility] Last Admin: 08/12/18 18:37 Dose: 100 mg Gabapentin (Neurontin) 100 mg PO TID [facility]; Protocol Last Admin: 08/12/18 18:37 Dose: 100 mg Magnesium Hydroxide (Milk Of Magnesia) 30 ml PO DAILY PRN PRN Reason: Constipation Last Admin: 08/11/18 09:36 Dose: 30 ml Oxycodone/Acetaminophen (Percocet 5/325 Mg Tab) 1 tab PO Q6H PRN PRN Reason: Pain, severe (8-10) Stop: 08/15/18 09:53 Last Admin: 08/12/18 21:40 Dose: 1 tab Pantoprazole Sodium (Protonix Ec Tab) 40 mg PO 0600 [facility] Last Admin: 08/12/18 05:42 Dose: 40 mg Zolpidem Tartrate (Ambien) 5 mg PO HS PRN PRN Reason: Insomnia Last Admin: 08/10/18 22:22 Dose: 5 mg - Labs Labs: 08/10/18 07:30 08/10/18 07:30 Attending/Attestation - Attestation I have personally seen and examined this patient.: Yes I have fully participated in the care of the patient.: Yes I have reviewed all pertinent clinical information, including history, physical exam and plan: Yes Notes (Text): This is an addendum to GI progress report dictated by the resident. The patient was seen and examined earlier. Medical records, lab studies, imagings were reviewed. Last 24 hours events reviewed. Agreed with the abov patient's repeat CT scan was reviewed. Normal right colon Physical exam no tenderness of the abdomen Would discontinue antibiotics Electrogram analysis the patient did recently had a colonoscopy done and will get the report for us to review patient's wrist to avoid narcotic pain medication . Patient may benefit from regular use of amitiza 08/13/18 00:07
[2018-08-12] MEDS: cefTRIAXone 1 gm 1 GM/100 ML BAG IVPB SCH (09:45)
[2018-08-12] MEDS: buPROPion 150 mg/24 Hours XL Tab PO SCH (09:46)
[2018-08-12 12:50] VITALS: RESP 18
--- NOTE | 2018-08-12 13:44 | CP.PCM.APN ---
Subjective - Date & Time of Evaluation Date of Evaluation: 08/12/18 Time of Evaluation: 12:00 - Subjective Subjective: Pt seen and examined at bedside. Denies abdominal pain, nausea or vomiting. Tolerating current diet. Objective - Vital Signs/Intake and Output Vital Signs (last 24 hours): Temp Pulse Resp BP Pulse Ox 98.9 F 70 18 140/82 96 08/12/18 06:00 08/12/18 06:00 08/12/18 06:00 08/12/18 06:00 08/12/18 06:00 - Medications Medications: Current Medications Acetaminophen (Tylenol 325mg Tab) 650 mg PO BID [facility] Last Admin: 08/12/18 09:45 Dose: 650 mg Alprazolam (Xanax) 0.25 mg PO Q6H PRN PRN Reason: Anxiety Stop: 08/16/18 09:23 Last Admin: 08/11/18 23:19 Dose: 0.25 mg Bupropion HCl (Wellbutrin Xl) 150 mg PO DAILY [facility] Last Admin: 08/12/18 09:46 Dose: 150 mg Citalopram Hydrobromide (Celexa) 10 mg PO DAILY [facility] Last Admin: 08/12/18 09:46 Dose: 10 mg Docusate Sodium (Colace) 100 mg PO BID [facility] Last Admin: 08/12/18 09:45 Dose: 100 mg Gabapentin (Neurontin) 100 mg PO TID [facility]; Protocol Last Admin: 08/12/18 09:45 Dose: 100 mg Ceftriaxone Sodium (Rocephin 1 Gram Ivpb) 1 gm in 100 mls @ 100 mls/hr IVPB DAILY [facility]; Protocol Last Admin: 08/12/18 09:45 Dose: 100 mls/hr Metronidazole (Flagyl) 500 mg in 100 mls @ 100 mls/hr IVPB Q8 [facility]; Protocol Last Admin: 08/12/18 05:43 Dose: 100 mls/hr Magnesium Hydroxide (Milk Of Magnesia) 30 ml PO DAILY PRN PRN Reason: Constipation Last Admin: 08/11/18 09:36 Dose: 30 ml Oxycodone/Acetaminophen (Percocet 5/325 Mg Tab) 1 tab PO Q6H PRN PRN Reason: Pain, severe (8-10) Stop: 08/15/18 09:53 Last Admin: 08/12/18 10:00 Dose: 1 tab Pantoprazole Sodium (Protonix Ec Tab) 40 mg PO 0600 [facility] Last Admin: 08/12/18 05:42 Dose: 40 mg Zolpidem Tartrate (Ambien) 5 mg PO HS PRN PRN Reason: Insomnia Last Admin: 08/10/18 22:22 Dose: 5 mg - Labs Labs: 08/10/18 07:30 08/10/18 07:30 - Constitutional Appears: Well, No Acute Distress - Head Exam Head Exam: NORMAL INSPECTION - Eye Exam Eye Exam: Normal appearance - ENT Exam ENT Exam: Normal Exam - Neck Exam Neck Exam: Full ROM - Respiratory Exam Respiratory Exam: Clear to Ausculation Bilateral, NORMAL BREATHING PATTERN - Cardiovascular Exam Cardiovascular Exam: REGULAR RHYTHM, +S1, +S2 - GI/Abdominal Exam GI & Abdominal Exam: Soft, Normal Bowel Sounds - Rectal Exam Rectal Exam: Deferred - Neurological Exam Neurological Exam: Alert, Awake, Oriented x3 - Psychiatric Exam Psychiatric exam: Flat Affect Assessment and Plan - Assessment and Plan (Free Text) Assessment: Pt is a 67 y.o. female admitted for abdominal pain. D/W Dr. Moise, concern with cecal mucosal thickening was noticed on initial CT A/P, will need to wait on repeat CT A/P. D/W PMD, possible DC today once cleared by GI. Plan: Pending CT A/P C/W bowel regimen per GI recs GI and Psych on consult Meds per MAR Poss DC home if GI clears pt Will continue to follow
--- NOTE | 2018-08-12 14:21 | CT ---
Date of service: 08/12/2018 PROCEDURE: CT Abdomen and Pelvis without intravenous contrast HISTORY: f/u right colon abnormality COMPARISON: None. TECHNIQUE: Without contrast.. Contrast dose: Radiation dose: Total exam DLP = 244.3 mGy-cm. This CT exam was performed using one or more of the following dose reduction techniques: Automated exposure control, adjustment of the mA and/or kV according to patient size, and/or use of iterative reconstruction technique. FINDINGS: LOWER THORAX: Unremarkable. LIVER: Unremarkable. No gross lesion or ductal dilatation. GALLBLADDER AND BILE DUCTS: Unremarkable. PANCREAS: Unremarkable. No gross lesion or ductal dilatation. SPLEEN: Unremarkable. ADRENALS: Unremarkable. No mass. KIDNEYS AND URETERS: Unremarkable. No hydronephrosis. No solid mass. VASCULATURE: Unremarkable. No aortic aneurysm. No aortic atherosclerotic calcification or mural plaque present. BOWEL: Unremarkable. No obstruction. No gross mural thickening. There is diverticulosis of the sigmoid colon. APPENDIX: Unremarkable. Normal appendix. PERITONEUM: Unremarkable. No free fluid. No free air. LYMPH NODES: Unremarkable. No enlarged lymph nodes. BLADDER: Unremarkable. REPRODUCTIVE: 2 cm calcified fibroid BONES: No acute fracture. OTHER FINDINGS: None. IMPRESSION: No acute findings. Diverticulosis of the sigmoid colon
--- NOTE | 2018-08-12 18:13 | PN ---
DATE: 08/12/2018 SUBJECTIVE: Shortly, the patient is a 67-year-old female with a reported history of depression and anxiety and chronic back pain. The patient was admitted on the medical side for abdominal pain. Psych consult was called for evaluation of depressive symptoms. The patient was seen by Dr. Vargas. This tag writer is taking over. The patient was seen and examined today. The patient presented to be alert and oriented, somewhat depressed. The patient was concentrating on her chronic back pain. The patient reported that she sees Dr. Valadez in the community. The patient reported, in May she had a procedure at the back, but her pain getting worse. The patient reported that she has a followup appointment with Dr. Valadez as well as Dr. Villarreal. The patient reported, at present moment she feels depressed, but she denies any thoughts of harming herself or others. The patient reported that her chronic back pain makes her feel depressed. The patient made statement that if she would not have any back pain, she probably would be much better. Dr. Vargas's note indicated that the patient has a history of alcohol abuse. The patient was seen by Dr. Chicas who recently retired. The patient has a history of treatment on Suboxone. It was advised for this patient to be seen every other day. Collaterals were obtained from nursing staff. As per nursing staff, the patient is compliant with the medications, did not verbalize any thoughts of killing herself or others, no behavioral issues. PHYSICAL EXAMINATION VITAL SIGNS: Reviewed. Temperature 98.9, pulse is 70, blood pressure 140/82, respirations 18, oxygen saturation is 96. MEDICATIONS: Reviewed. The patient is on Tylenol, Xanax 0.25 mg every 6 hours p.r.n. for anxiety. The patient is on Wellbutrin 150 mg daily. The patient is also on Celexa 10 mg daily. This tag writer is not sure why the patient is on two medications for depression in subtherapeutic doses. We will ask primary care team. The patient is on Rocephin, also Colace, Neurontin, milk of magnesia, Flagyl, Percocet, Protonix and Ambien 5 mg as needed. LABORATORY DATA: Reviewed. Most recent lab was from 08/10/2018. MENTAL STATUS EXAMINATION: The patient presented to be alert and oriented, somewhat withdrawn. Flat affect. Mood described as, "I am depressed because of the chronic pain." Affect was mood congruent. Thought process was coherent and goal directed. Thought content; the patient denied visual, auditory or tactile hallucinations. Denied paranoid ideation. The patient denied thoughts of harming herself or others, denied intent or plan. Insight and judgment seems to be improving. Impulses are well controlled. IMPRESSION: As per history, depression and anxiety and also a history of alcohol abuse. PLAN: Continue current management. Continue current medications. The patient contracted for safety. The patient denies any thoughts of harming herself or others. The patient seems to be relatively stable from a psychiatric standpoint and we will follow up with this patient every other day. Dr. Vargas advised social service evaluation and we will provide the patient with information about outpatient providers. At present moment, the patient poses no imminent danger to self or others. We will follow up on this patient on Thursday. Thank you very much for letting me participate in care of your patient. Chrissie Faria MD
[2018-08-13] MEDS: Oxycodone/Acetaminophen 5/325 mg Tab PO PRN (04:16)
[2018-08-13] MEDS: Pantoprazole 40 mg EC Tab PO SCH (05:48)
[2018-08-13 06:31] VITALS: BP 130/93; O2SAT 95
[2018-08-13] MEDS: buPROPion 150 mg/24 Hours XL Tab PO SCH (09:13)
[2018-08-13] MEDS: Magnesium Hydroxide Susp 30 ml UD PO PRN (09:13)
[2018-08-13 09:56] VITALS: PULSE 74; TEMP 98.2
--- NOTE | 2018-08-13 10:03 | PN ---
DATE: 08/12/2018 SUBJECTIVE: The patient was seen this morning as well as evening with her at the bedside. She is in bed complaining of some degree of back discomfort. Abdominal pain seems to have subsided completely. I spoke with her about discharge to home. Her case was also discussed at great length with Dr. Moise, the furnace charger after he had ordered a followup repeat CT scan of the abdomen and pelvis. I obtained the copy of the prior CT scans done earlier this year as well as colonoscopy and endoscopy she had had as an outpatient, some three months ago, at an outside location. The CT scan done today reassured Dr. Moise of the normal findings and no thickening of the cecum or ascending colon wall. ASSESSMENT AND PLAN: I spoke with the patient about the plans for discharge to home. She was still unsettled with going home today. So arrangements will be made for discharge tomorrow. Psychiatry input appreciated. We will continue her current SSRI as well as bupropion/Wellbutrin and followup in the near future. I counseled the patient at great length regarding my concerns about opiates and opiates contributing to her depression as well as her chronic constipation and large amount of stool noted on CT scan upon presentation. She will continue the Amitiza that she has at home, but increase it to twice a day. She will follow up with us in one week after discharge. She will be seen by Dr. Jared Villarreal and discharged tomorrow. Sami Villarreal MD
--- NOTE | 2018-08-13 16:13 | CP.PCM.PN ---
Subjective - Date & Time of Evaluation Date of Evaluation: 08/13/18 Time of Evaluation: 11:50 - Subjective Subjective: S&E at bedside, chart reviewed. No N/V, abdominal pain is better, had small BM, no bleeding noted. Had solids today. No acute overnight events reported. Objective - Vital Signs/Intake and Output Vital Signs (last 24 hours): Temp Pulse Resp BP Pulse Ox 98.2 F 74 18 130/93 H 95 08/13/18 06:00 08/13/18 06:00 08/13/18 06:00 08/13/18 06:00 08/13/18 06:00 Intake and Output: 08/13/18 08/13/18 06:59 18:59 Intake Total 540 Balance 540 - Medications Medications: Current Medications Acetaminophen (Tylenol 325mg Tab) 650 mg PO BID [facility] Last Admin: 08/13/18 10:05 Dose: Not Given Alprazolam (Xanax) 0.25 mg PO Q6H PRN PRN Reason: Anxiety Stop: 08/16/18 09:23 Last Admin: 08/12/18 21:41 Dose: 0.25 mg Bupropion HCl (Wellbutrin Xl) 150 mg PO DAILY [facility] Last Admin: 08/13/18 09:13 Dose: 150 mg Citalopram Hydrobromide (Celexa) 10 mg PO DAILY [facility] Last Admin: 08/13/18 09:13 Dose: 10 mg Docusate Sodium (Colace) 100 mg PO BID [facility] Last Admin: 08/13/18 09:13 Dose: 100 mg Gabapentin (Neurontin) 300 mg PO BID [facility]; Protocol Last Admin: 08/13/18 09:13 Dose: 300 mg Magnesium Hydroxide (Milk Of Magnesia) 30 ml PO DAILY PRN PRN Reason: Constipation Last Admin: 08/13/18 09:13 Dose: 30 ml Pantoprazole Sodium (Protonix Ec Tab) 40 mg PO 0600 [facility] Last Admin: 08/13/18 05:48 Dose: 40 mg Tramadol HCl (Ultram) 50 mg PO TID PRN PRN Reason: Pain, moderate (4-7) Last Admin: 08/13/18 14:29 Dose: 50 mg Zolpidem Tartrate (Ambien) 5 mg PO HS PRN PRN Reason: Insomnia Last Admin: 01/04/19 00:34 Dose: 5 mg - Labs Labs: 08/10/18 07:30 08/10/18 07:30 - Constitutional Appears: No Acute Distress - Eye Exam Eye Exam: Normal appearance. absent: Scleral icterus - ENT Exam ENT Exam: Mucous Membranes Moist - Neck Exam Neck Exam: absent: Lymphadenopathy - Respiratory Exam Respiratory Exam: Clear to Ausculation Bilateral, NORMAL BREATHING PATTERN. absent: Respiratory Distress - Cardiovascular Exam Cardiovascular Exam: +S1, +S2 - GI/Abdominal Exam GI & Abdominal Exam: Soft, Normal Bowel Sounds. absent: Guarding, Tenderness, Rebound - Extremities Exam Extremities Exam: absent: Calf Tenderness, Pedal Edema - Neurological Exam Neurological Exam: Alert, Awake, Oriented x3 Assessment and Plan - Assessment and Plan (Free Text) Assessment: ASSESSMENT: Resolving abdominal pain, ct scan : stool filled colon,cecal mucosal thickening, no acute pathology Chronic constipation, likely opiod induced, on Percocet and Tramadol Chronic Back Pain Gastritis H/O Depression, Anxiety, Bipolar Disorder PLAN continue Miralax TID, Colace may benefit from Amitiza continue PPI diet as tolerated, recom soft low residual at the moment may benefit from outpt elective colonoscopy From Gi point of view patient may DC home to FU outpt office, discussed w/ patient Case discussed and reviewed w/ Dr. Jackson covering Dr. Solomon.
--- NOTE | 2018-08-16 08:52 | PN ---
DATE: 08/13/2018 An addendum to progress note performed by Maida Hall APN on [facility] [employer]. This visit is for Dr. Moise, Dr. Jackson covering. I have personally examined the patient myself. I have reviewed her medications and blood results. The patient has opioid-induced constipation and is improving clinically. The patient is to continue MiraLax t.i.d. and Colace. She is stable from a GI standpoint to be discharged home with followup as an outpatient with Dr. Moise. Shekhar Jackson MD
== END 2018-08-13 16:49 | disposition home or self-care (01) | DRG 392 ==
LOC: ED 02:27 → ERH 09:23 → 5RNO 11:47
PROVIDERS: ADMIT Internal Medicine; ATTEND Internal Medicine
DX: K59.03 Drug induced constipation (principal); G89.29 Other chronic pain; F17.200 Nicotine dependence, unspecified, uncomplicated; Z87.11 Personal history of peptic ulcer disease; K21.9 Gastro-esophageal reflux disease without esophagitis; M51.36 Other intervertebral disc degeneration, lumbar region; F43.10 Post-traumatic stress disorder, unspecified; F31.9 Bipolar disorder, unspecified; Z79.899 Other long term (current) drug therapy; Z91.19 Patient's noncompliance with other medical treatment and regimen; F41.9 Anxiety disorder, unspecified; M47.812 Spondylosis without myelopathy or radiculopathy, cervical region; F45.9 Somatoform disorder, unspecified; F41.1 Generalized anxiety disorder; F10.10 Alcohol abuse, uncomplicated; K57.30 Diverticulosis of large intestine without perforation or abscess without bleeding; F20.9 Schizophrenia, unspecified; K29.70 Gastritis, unspecified, without bleeding; T40.2X5A Adverse effect of other opioids, initial encounter; Z79.891 Long term (current) use of opiate analgesic; Z87.440 Personal history of urinary (tract) infections; Z91.14 Patient's other noncompliance with medication regimen; Z96.642 Presence of left artificial hip joint; Z87.19 Personal history of other diseases of the digestive system

== ENCOUNTER 2018-08-20 10:22 | Emergency (ER) | payer MEDICARE, BC ==
[2018-08-20 10:23] VITALS: BMI 29.2
[2018-08-20 10:32] VITALS: RESP 19
[2018-08-20] MEDS ORDERED: Sodium Chloride 0.9% 1,000 ML IV STA (10:59)
[2018-08-20] MEDS ORDERED: Albuterol-Ipratrop 3 mg / 0.5 (3 ml) UD IH STA (11:16)
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
[2018-08-20 11:45] LABS: BASO # 0.03 K/mm3 (0.0-2.0); BASO % 0.3 % (0.0-3.0); EOS # 0.1 (0.0-0.7); EOS % 0.5 % (1.5-5.0); GRAN % 78.2 % (50.0-68.0); HEMOGLOBIN 13.3 g/dL (12.0-16.0); LYMPH # 1.5 (1.2-3.4); LYMPH % 14.9 % (22.0-35.0); MEAN CELL VOLUME 90.9 fl (80.0-105.0); MEAN CORPUSCULAR HEMOGLOBIN 31.7 pg (25.0-35.0); MEAN CORPUSCULAR HGB CONC 34.9 g/dl (31.0-37.0); MEAN PLATELET VOLUME 9.1 fl (7.0-11.0); MONO # 0.6 (0.1-0.6); MONO % 6.1 % (1.0-6.0); RBC 4.19 10^6/uL (3.5-6.1); RED CELL DISTRIBUTION WIDTH 13.5 % (11.5-14.5); WHITE BLOOD COUNT 10.2 10^3/uL (4.5-11.0)
[2018-08-20 11:46] VITALS: PULSE 75; TEMP 98; O2SAT 99
[2018-08-20 11:56] LABS: ALB/GLOB RATIO 1.4 (1.1-1.8); ALBUMIN 4.1 g/dL (3.0-4.8); ALT/SGPT 30 U/L (7-56); AST/SGOT 27 U/L (14-36); BLOOD UREA NITROGEN 6 mg/dL (7-21); CALCIUM 9.2 mg/dL (8.4-10.5); GFR NON-AFRICAN AMERICAN > 60
--- NOTE | 2018-08-20 12:11 | RAD ---
Date of service: 08/20/2018 HISTORY: sob COMPARISON: 08/09/2018 FINDINGS: LUNGS: No active pulmonary disease. PLEURA: No significant pleural effusion identified, no pneumothorax apparent. CARDIOVASCULAR: No aortic atherosclerotic calcification present. Normal cardiac size. No pulmonary vascular congestion. OSSEOUS STRUCTURES: No significant abnormalities. VISUALIZED UPPER ABDOMEN: Normal. OTHER FINDINGS: None. IMPRESSION: No active disease.
[2018-08-20] MEDS ORDERED: Albuterol 0.083% Inhal Sol (2.5 mg/3 mL) UD INH STA (12:56)
[2018-08-20] MEDS ORDERED: Oxycodone/Acetaminophen 5/325 mg Tab PO STA (13:27)
[2018-08-20 13:53] VITALS: BP 124/53
--- NOTE | 2018-08-20 20:02 | CARD ---
APPROVED REPORT Date of service: 08/20/2018 EKG Measurement Heart [id number] <Conclusion> Normal sinus rhythm Normal Electrocardiogram
== END 2018-08-20 13:53 | disposition home or self-care (01) ==
LOC: ED 10:22
DX: T40.2X1A Poisoning by other opioids, accidental (unintentional), initial encounter (principal); R06.00 Dyspnea, unspecified; R42 Dizziness and giddiness; R19.7 Diarrhea, unspecified; F17.210 Nicotine dependence, cigarettes, uncomplicated; F20.9 Schizophrenia, unspecified; I10 Essential (primary) hypertension
CPT/HCPCS: 71045; 80053; 83735; 85025; 93005; 96361; 96374; 96375; 99285; J1885; J2930; J7030

== ENCOUNTER 2018-08-28 07:36 | Emergency (ER) | payer MEDICARE, BC ==
[2018-08-28 07:43] VITALS: BMI 20.9
[2018-08-28 07:45] VITALS: TEMP 98.6
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
[2018-08-28] MEDS ORDERED: MethylPREDNISolone 40 mg Vial IVP STA (08:27)
[2018-08-28] MEDS ORDERED: Albuterol 0.083% Inhal Sol (2.5 mg/3 mL) UD INH STA (08:27)
[2018-08-28] MEDS ORDERED: Lidocaine 5% Patch TD STA (08:28)
[2018-08-28 09:20] LABS: BASO # 0.06 K/mm3 (0.0-2.0); BASO % 0.8 % (0.0-3.0); EOS # 0.1 (0.0-0.7); GRAN # 4.74 (1.4-6.5); GRAN % 60.3 % (50.0-68.0); HEMOGLOBIN 13.7 g/dL (12.0-16.0); LYMPH # 2.6 (1.2-3.4); LYMPH % 32.7 % (22.0-35.0); MEAN CELL VOLUME 91.7 fl (80.0-105.0); MEAN CORPUSCULAR HEMOGLOBIN 31.7 pg (25.0-35.0); MEAN CORPUSCULAR HGB CONC 34.6 g/dl (31.0-37.0); MEAN PLATELET VOLUME 8.9 fl (7.0-11.0); MONO # 0.4 (0.1-0.6); MONO % 5.2 % (1.0-6.0); RBC 4.32 10^6/uL (3.5-6.1); RED CELL DISTRIBUTION WIDTH 13.9 % (11.5-14.5); WHITE BLOOD COUNT 7.9 10^3/uL (4.5-11.0)
[2018-08-28 09:53] VITALS: O2SAT 100
[2018-08-28 09:54] LABS: BLOOD UREA NITROGEN 7 mg/dL (7-21); CALCIUM 9.2 mg/dL (8.4-10.5); GFR NON-AFRICAN AMERICAN > 60
[2018-08-28 10:03] LABS: B-TYPE NATRIURETIC PEPTIDE 205 pg/mL (0-450)
[2018-08-28 11:08] VITALS: BP 144/87; PULSE 91; RESP 18
--- NOTE | 2018-08-28 17:14 | RAD ---
Date of service: 08/28/2018 HISTORY: chest pain COMPARISON: 08/20/2018 FINDINGS: LUNGS: No active pulmonary disease. PLEURA: No significant pleural effusion identified, no pneumothorax apparent. CARDIOVASCULAR: No aortic atherosclerotic calcification present. Normal cardiac size. No pulmonary vascular congestion. OSSEOUS STRUCTURES: No significant abnormalities. VISUALIZED UPPER ABDOMEN: Normal. OTHER FINDINGS: None. IMPRESSION: No active disease.
--- NOTE | 2018-08-29 06:14 | CARD ---
APPROVED REPORT Date of service: 08/28/2018 EKG Measurement Heart [id number] <Conclusion> Baseline artifact NSR with premature supraventricular complexes ST abnormality Abnormal ECG
== END 2018-08-28 11:04 | disposition home or self-care (01) ==
LOC: ED 07:36
DX: G89.29 Other chronic pain (principal); I10 Essential (primary) hypertension; F17.210 Nicotine dependence, cigarettes, uncomplicated
CPT/HCPCS: 71045; 80048; 83880; 85025; 93005; 96374; 96375; 99285; J1885; J2920

== ENCOUNTER 2018-08-28 16:32 | Emergency (ER) | payer MEDICARE, BC ==
[2018-08-28 16:33] VITALS: BMI 20.9
[2018-08-28 16:38] VITALS: TEMP 97.8
[2018-08-28] MEDS ORDERED: Naproxen 275 mg Tab PO STA (17:24)
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
[2018-08-28 17:49] VITALS: BP 126/80; PULSE 95; RESP 18; O2SAT 97
== END 2018-08-28 17:45 | disposition home or self-care (01) ==
LOC: ED 16:32
DX: G89.29 Other chronic pain (principal); I10 Essential (primary) hypertension; F17.210 Nicotine dependence, cigarettes, uncomplicated
CPT/HCPCS: 71045; 80048; 83880; 85025; 93005; 96374; 96375; 99283; 99285; J1885; J2920

== ENCOUNTER 2018-10-16 17:25 | Inpatient (IN) | payer MEDICARE, BC | END 2018-10-22 13:25 | disposition intermediate care facility (04) | LOC: ERH 23:57 → 5RSO 10-19 22:14 → ED 17:25 → ERH 22:41 → 5RSO 10-17 17:57 ==

== ENCOUNTER 2018-10-22 13:25 | Inpatient (IN) | payer MEDICARE, BC ==
[2018-10-22 15:03] VITALS: BMI 19.7
[2018-10-22] MEDS ORDERED: Alum-Mag Hydrox-Simethicone Susp (30 mL) PO PRN (15:10)
[2018-10-22] MEDS ORDERED: Magnesium Hydroxide Susp 30 ml UD PO PRN (15:11)
[2018-10-22] MEDS ORDERED: Levalbuterol 1.25 MG/3 ML Inhal Soln UD IH PRN (15:19)
--- NOTE | 2018-10-22 15:25 | PCM.BM ---
<JeffBird - Last Filed: 10/22/18 15:22> Treatment Plan Problems - Problems identified on initial assessmt Hopelessness/Helplessness Date Initiated: 10/22/18 Time Initiated: 15:00 Assessment reference: NA Status: Active Priority: 1 Ineffective Coping Date Initiated: 10/22/18 Time Initiated: 15:00 Assessment reference: NA Status: Active Priority: 2 Medication Nonadherence Date Initiated: 10/22/18 Time Initiated: 15:00 Assessment reference: NA Status: Active Priority: 3 Altered Sleep Patterns Date Initiated: 10/22/18 Time Initiated: 15:00 Assessment reference: NA Status: Active Priority: 4 Activity Intolerance Date Initiated: 10/22/18 Time Initiated: 15:00 Assessment reference: NA Status: Active Priority: 5 Treatment assets and liabiliti Patient Assests: cooperative Patient Liabilities: medical problems - Milieu Protocol Maintain good personal hygiene: daily Encourage regular showers, every shift Remind patient to perform daily oral care, every shift Assist patient to perform ADL's Maintain personal safety: every shift Educate patient to report safety concerns to staff, every shift Monitor environment for contraband/sharps Medication safety: Monitor for expected outcome, potential side effects: every shift, Assess barriers to learning: every shift, Assess readiness for medication education: every shift Family Contact Family involvement: Family/SO is involved Family contact: Patient agrees to contact Discharge/Continuing Care - Education Needs Education Needs: Patient Medication, Patient Diagnosis/Disease Process, Patient Coping Skills, Patient Anger Management skills, Patient Placement options, Patient Community resources, Patient Activities of Daily Living, Patient Pain, Patient Nutrition, Patient Uses of Medical Equipment, Patient Health Practices/Safety, Patient Personal Hygiene/Grooming, Patient Aftercare Safety Plan - Discharge Discharge Criteria: Tolerates medication w/o severe side effects <Chrissie Faria - Last Filed: 10/23/18 08:56> - Diagnosis (1) ANTONIO (generalized anxiety disorder) Status: Acute Interventions: 10/23/18 08:57 Psychoeducation Psychopharmacology/adjustment of medications as needed/ monitoring possible side effects Evaluate pt on daily basis Discussion of importance of being compliant with medications and follow up appointments Suicide and homicide risk assessment and prevention, coping strategies, safety plan Reduction of symptoms Relaxation techniques and breathing exercises Improve functional status Family involvement Cognitive behavioral therapy as outpatient (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 Status: Acute Interventions: 10/23/18 08:57 pt was dx with UTI currently on antibiotics po pt will be seen by PMD Additional consultation by specialists as needed Lab work as needed (CBC, CMP, TSH, free T4, UA, Urine test for females as needed) CXR as needed EKG as needed Physical therapy evaluation as needed (3) Depression Status: Acute Interventions: 10/23/18 08:57 Psychoeducation Psychopharmacology/adjustment of medications as needed/ monitoring possible side effects Evaluate pt on daily basis Compliance with medications and follow up appointments Suicide and homicide risk assessment and prevention Relapse prevention Reduction of symptoms Improve functional status Family involvement As outpatient: cognitive behavioral therapy <Virginie Alejandro - Last Filed: 10/25/18 12:15>
[2018-10-23] MEDS: Pantoprazole 40 mg EC Tab PO SCH (08:47)
[2018-10-23] MEDS: Bisacodyl 5mg EC Tab PO SCH (13:40)
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
[2018-10-24] MEDS: Pantoprazole 40 mg EC Tab PO SCH (06:04)
[2018-10-24 08:12] LABS: BASO # 0.1 K/mm3 (0.0-2.0); BASO % 2.2 % (0.0-3.0); EOS # 0.7 (0.0-0.7); EOS % 14.7 % (1.5-5.0); HEMOGLOBIN 9.7 g/dL (12.0-16.0); LYMPH # 1.5 (1.2-3.4); LYMPH % 32.9 % (22.0-35.0); MEAN CELL VOLUME 91.7 fl (80.0-105.0); MEAN CORPUSCULAR HEMOGLOBIN 28.8 pg (25.0-35.0); MEAN CORPUSCULAR HGB CONC 31.4 g/dl (31.0-37.0); MEAN PLATELET VOLUME 9.2 fl (7.0-11.0); MONO # 0.3 (0.1-0.6); MONO % 6.6 % (1.0-6.0); RBC 3.37 10^6/uL (3.5-6.1); RED CELL DISTRIBUTION WIDTH 14.6 % (11.5-14.5); WHITE BLOOD COUNT 4.6 10^3/uL (4.5-11.0)
[2018-10-24 08:31] LABS: ALB/GLOB RATIO 0.9 (1.1-1.8); ALT/SGPT 14 U/L (7-56); AST/SGOT 32 U/L (14-36); BLOOD UREA NITROGEN 9 mg/dL (7-21); CALCIUM 8.7 mg/dL (8.4-10.5); GFR NON-AFRICAN AMERICAN > 60
[2018-10-24] MEDS ORDERED: Bisacodyl 5mg EC Tab PO ONE (08:45)
[2018-10-24] MEDS: Bisacodyl 5mg EC Tab PO SCH ×2 (09:57→09:58)
--- NOTE | 2018-10-24 11:56 | PCM.PYCHPN ---
Psychiatric Progress Note - Psychiatric Progress Note Patient seen today, length of contact: 30 minutes Patient Chief Complaint: "I remember you......, but I do not remember you name" Problems Identified/Issues Discussed: Risk/benefits and alternatives of medications discussed, suicide/ homicide prevention, past psychiatric h/o, current psychiatric symptoms, medical problems, risk/benefits and alternatives of medications, medications compliance, coping strategies, substance abuse h/o, relapse prevention, importance of follow up with psychiatrist and therapist, discharge plan. Medical Problems: See HPI Diagnostic Results: 10/24/18 07:00 10/24/18 07:00 Lab Results 10/24/18 07:00: Sodium 140, Potassium 4.0, Chloride 106, Carbon Dioxide 28, Anion Gap 10, BUN 9, Creatinine 0.5 L, Est GFR ( Amer) > 60, Est GFR (Non-Af Amer) > 60, Random Glucose 91, Calcium 8.7, Phosphorus 3.9, Magnesium 2.0, Total Bilirubin 0.4, AST 32, ALT 14, Alkaline Phosphatase 78, Total Protein 6.4, Albumin 3.0, Globulin 3.4, Albumin/Globulin Ratio 0.9 L 10/24/18 07:00: WBC 4.6 D, RBC 3.37 L, Hgb 9.7 L, Hct 30.9 L, MCV 91.7, MCH 28.8, MCHC 31.4, RDW 14.6 H, Plt Count 437, MPV 9.2, Neut % (Auto) 43.6 L, Lymph % (Auto) 32.9, [place] % (Auto) 6.6 H, Eos % (Auto) 14.7 H, Baso % (Auto) 2.2, Lymph # (Auto) 1.5, [place] # (Auto) 0.3, Eos # (Auto) 0.7, Baso # (Auto) 0.10, Absolute Neuts (auto) 1.99 Vital Signs Temp Pulse Pulse Pulse Resp BP Pulse Ox 10/24/18 07:00 97.2 F L 92 H 18 143/93 H 10/23/18 06:49 97.6 F 87 20 137/81 10/22/18 16:00 88 121/82 10/22/18 15:00 89 89 16 10/22/18 14:00 97.4 F L 89 16 116/73 94 L DSM 5 Symptoms Update: Shortly patient is a 68-year old female with a long and debilitating history of mental illness mood spectrum disorder and anxiety, patient has history of psychiatric admissions in the past including [facility] for 1-1/2 years at age of 14, patient also has history of self mutilating behavior in her 19th patient was cutting herself with a razor, patient currently under the care of Dr. Raulito Justice here in [place], initially patient was admitted on the medical side for evaluation of altered mental status, catatonia, which was related to urinary tract infection and possible mental illness, patient was stabilized on IV antibiotics, yesterday patient presented better, with a help of her supportive patient was able to make decision to sign herself into the hospital, patient had a capacity to do so, at present moment patient requires further evaluation, stabilization, observation, medications adjustment. Patient was seen today in her room, patient presented somewhat confused, patient said that she remembers this commercial underwriter "but I don't remember your name", pt was not even able to remember what is the speciality this commercial underwriter. patient presented to be catatonic, oddly related, at times smiling inappropriately, but overall no agitation no aggression. Personal hygiene is fair, ADLs are poor, patient currently on one-to-one for risk of falls, safety. Patient seems to be aware of her cognitive deficit at present moment, patient has a tendency of all of smiling or giggling when she does not know the answer for question being asked. Patient reported to feel "weird". Patient reports that she does not feel 100% yet, patient reported that her daily activities are "wake up, take a shower, do some cleaning staff, I am not there yet". Yesterday patient presented to be psychotic patient said "If I could, I would fly out of the window, to see if my wings working, I would like to catch a bird...," As per staff patient compliant with medications, no agitation, no aggression, patient is self isolating, in bed all day long, not socializing. DSM 5 Diagnosis: History of depression and anxiety At present moment this commercial underwriter would like to rule out major depressive disorder severe with psychosis/catatonia Rule out delirium due to general medical condition, UTI seems to be improving Rule out early stage dementia Rule out normal aging Medication Change: Yes Medical Record Reviewed: Yes Consults ordered or reviewed: Medical follow-up requested Mental Status Examination - Cognitive Function Orientation: Person, Place, Situation Memory: Impaired Attention: Poor Concentration: Poor Association: Loose Fund of Knowledge: Poor - Mood Mood: Depressed, Anxious - Affect Affect: Flat - Formal Thought Process Formal Thought Process: Hallucinations, Delusions, Loosening of associations - Suicidal Ideation Suicidal Ideation: No - Homicidal Ideation Homicidal Ideation: No Goal/Treatment Plan - Goal/Treatment Plan Need for Continued Stay: Remain at risks for inpatient hospitalization, Severe depression anxiety, Discharge may exacerbated symptoms, Severe functional impairment Progress Toward Problem(s) and Goals/Treatment Plan: Milieu/structure/supportive therapy Patient will be seen by her primary care physician SW consultation for discharge plan and social issues Med management: Medications were confirmed by patient pharmacy, please see consultation note for more detailed information Catapres 0.1 mg twice a day will be continued Lexapro 15 mg daily will be continued with a plan to increase it to 20 mg Lorazepam 1 mg 3 times a day scheduled for catatonia and anxiety Seroquel 100 mg at the nighttime for psychosis and mood stabilization Family involvement Follow up on labs Will monitor closely Pt was educated about risk/benefits and alternatives of medications, coping strategies (safety plan, suicide prevention), relapse prevention, importance of follow up with psychiatrist and therapist, stay away from drugs/alcohol/smoking Estimated Date of D/C: 10/29/18
[2018-10-25] MEDS: Pantoprazole 40 mg EC Tab PO SCH (06:47)
[2018-10-25] MEDS: Bisacodyl 5mg EC Tab PO SCH (09:14)
--- NOTE | 2018-10-25 15:35 | PCM.PYCHPN ---
Psychiatric Progress Note - Psychiatric Progress Note Patient seen today, length of contact: 30 minutes Patient Chief Complaint: "I am not sure if I will be ever 100%" Problems Identified/Issues Discussed: Risk/benefits and alternatives of medications discussed, suicide/ homicide prevention, past psychiatric h/o, current psychiatric symptoms, medical problems , risk/benefits and alternatives of medications, medications compliance, coping strategies, substance abuse h/o, relapse prevention, importance of follow up with psychiatrist and therapist, discharge plan. Medical Problems: See HPI Diagnostic Results: 10/24/18 07:00 10/24/18 07:00 Lab Results 10/24/18 07:00: Sodium 140, Potassium 4.0, Chloride 106, Carbon Dioxide 28, Anion Gap 10, BUN 9, Creatinine 0.5 L, Est GFR ( Amer) > 60, Est GFR (Non-Af Amer) > 60, Random Glucose 91, Calcium 8.7, Phosphorus 3.9, Magnesium 2.0, Total Bilirubin 0.4, AST 32, ALT 14, Alkaline Phosphatase 78, Total Protein 6.4, Albumin 3.0, Globulin 3.4, Albumin/Globulin Ratio 0.9 L 10/24/18 07:00: WBC 4.6 D, RBC 3.37 L, Hgb 9.7 L, Hct 30.9 L, MCV 91.7, MCH 28.8, MCHC 31.4, RDW 14.6 H, Plt Count 437, MPV 9.2, Neut % (Auto) 43.6 L, Lymph % (Auto) 32.9, [place] % (Auto) 6.6 H, Eos % (Auto) 14.7 H, Baso % (Auto) 2.2, Lymph # (Auto) 1.5, [place] # (Auto) 0.3, Eos # (Auto) 0.7, Baso # (Auto) 0.10, Absolute Neuts (auto) 1.99 Vital Signs Temp Pulse Pulse Pulse Resp BP Pulse Ox 10/24/18 07:00 97.2 F L 92 H 18 143/93 H 10/23/18 06:49 97.6 F 87 20 137/81 10/22/18 16:00 88 121/82 10/22/18 15:00 89 89 16 10/22/18 14:00 97.4 F L 89 16 116/73 94 L DSM 5 Symptoms Update: Shortly patient is a 68-year old female with a long and debilitating history of mental illness mood spectrum disorder and anxiety, patient has hist ory of psychiatric admissions in the past including [facility] for 1-1/2 years at age of 14, patient also has history of self mutilating behavior in her 20[age] patient was cutting herself with a razor, patient currently under the care of Dr. Raulito Justice here in [place], initially patient was admitted on the medical side for evaluation of altered mental status, catatonia, which was related to urinary tract infection and possible mental illness, patient was stabilized on IV antibiotics, yesterday patient presented better, with a help of her supportive patient was able to make decision to sign herself into the hospital, patient had a capacity to do so, at present moment patient requires further evaluation, stabilization, observation, medications adjustment. Patient was seen today at the treatment team meeting, patient presented with some improvements of her psychomotor retardation, patient was ambulating, affect was more reactive, speech was more productive. At the same time patient was making hopeless statements such as "I do not think that I will be ever 100%..." oddly related, at times smiling inappropriately, but overall no agitation no aggression. Personal hygiene is fair, ADLs are improving , this aligner typewriter will discontinue one-to-one observation. Over the weekend patient presented to be psychotic patient said "If I could, I would fly out of the window, to see if my wings working, I would like to catch a bird...," As per staff patient compliant with medications, no agitation, no aggression, patient is more visible. So far patient tolerated his medications well, no side effects reported, 0, no EPS. DSM 5 Diagnosis: History of depression and anxiety At present moment this aligner typewriter would like to rule out major depressive disorder severe with psychosis/catatonia Rule out delirium due to general medical condition, UTI seems to be improving Rule out early stage dementia Rule out normal aging Medication Change: Yes (Lexapro increased, decreased) Medical Record Reviewed: Yes Consults ordered or reviewed: Medical follow-up requested Mental Status Examination - Cognitive Function Orientation: Person, Place, Situation Memory: Impaired Attention: Poor Concentration: Poor Association: Loose Fund of Knowledge: Poor - Mood Mood: Depressed, Anxious - Affect Affect: Flat - Formal Thought Process Formal Thought Process: Hallucinations (Denied today), Delusions (Not elicited), Loosening of associations - Suicidal Ideation Suicidal Ideation: No - Homicidal Ideation Homicidal Ideation: No Goal/Treatment Plan - Goal/Treatment Plan Need for Continued Stay: Remain at risks for inpatient hospitalization, Severe depression anxiety, Discharge may exacerbated symptoms, Severe functional impairment Progress Toward Problem(s) and Goals/Treatment Plan: Milieu/structure/supportive therapy Patient will be seen by her primary care physician SW consultation for discharge plan and social issues Med management: Medications were confirmed by patient pharmacy, please see consultation note for more detailed information Catapres 0.1 mg twice a day will be continued Lexapro 20 mg daily will be continued with a plan to increase it to 20 mg Lorazepam 1 mg 2 times a day scheduled for catatonia and anxiety Seroquel 100 mg at the nighttime for psychosis and mood stabilization Family involvement Follow up on labs Will monitor closely Pt was educated about risk/benefits and alternatives of medications, coping strategies (safety plan, suicide prevention), relapse prevention, importance of follow up with psychiatrist and therapist, stay away from drugs/alcohol/smoking Estimated Date of D/C: 10/29/18
[2018-10-26] MEDS: Pantoprazole 40 mg EC Tab PO SCH (06:11)
[2018-10-26 07:15] VITALS: O2SAT 93
[2018-10-26] MEDS: Bisacodyl 5mg EC Tab PO SCH (09:55)
[2018-10-26] MEDS ORDERED: Magnesium Hydroxide Susp 30 ml UD PO ONE (11:00)
[2018-10-26 12:37] LABS: URINE BILIRUBIN NEGATIVE (NEGATIVE); URINE BLOOD NEGATIVE (NEGATIVE); URINE GLUCOSE (UA) NEGATIVE (NEGATIVE); URINE LEUKOCYTE ESTERASE TRACE Leu/uL (NEGATIVE); URINE PROTEIN NEGATIVE mg/dL (<30 mg/dL); URINE UROBILINOGEN 0.2 E.U./dL (<1 E.U./dL)
[2018-10-26 12:38] LABS: URINE APPEARANCE CLEAR (CLEAR); URINE COLOR YELLOW (YELLOW)
[2018-10-26 12:40] LABS: URINE BACTERIA MOD /hpf; URINE RBC 0 - 2 /hpf (0-2)
--- NOTE | 2018-10-26 15:16 | PCM.PYCHPN ---
Psychiatric Progress Note - Psychiatric Progress Note Patient seen today, length of contact: 30 minutes Patient Chief Complaint: "I feel little better" Problems Identified/Issues Discussed: Risk/benefits and alternatives of medications discussed, suicide/ homicide prevention, past psychiatric h/o, current psychiatric symptoms, medical problems, risk/benefits and alternatives of medications, medications compliance, coping strategies, substance abuse h/o, relapse prevention, importance of follow up with psychiatrist and therapist, discharge plan. Medical Problems: See HPI Diagnostic Results: 10/24/18 07:00 10/24/18 07:00 Lab Results 10/24/18 07:00: Sodium 140, Potassium 4.0, Chloride 106, Carbon Dioxide 28, Anion Gap 10, BUN 9, Creatinine 0.5 L, Est GFR ( Amer) > 60, Est GFR (Non-Af Amer) > 60, Random Glucose 91, Calcium 8.7, Phosphorus 3.9, Magnesium 2.0, Total Bilirubin 0.4, AST 32, ALT 14, Alkaline Phosphatase 78, Total Protein 6.4, Albumin 3.0, Globulin 3.4, Albumin/Globulin Ratio 0.9 L 10/24/18 07:00: WBC 4.6 D, RBC 3.37 L, Hgb 9.7 L, Hct 30.9 L, MCV 91.7, MCH 28.8, MCHC 31.4, RDW 14.6 H, Plt Count 437, MPV 9.2, Neut % (Auto) 43.6 L, Lymph % (Auto) 32.9, [place] % (Auto) 6.6 H, Eos % (Auto) 14.7 H, Baso % (Auto) 2.2, Lymph # (Auto) 1.5, [place] # (Auto) 0.3, Eos # (Auto) 0.7, Baso # (Auto) 0.10, Absolute Neuts (auto) 1.99 Vital Signs Temp Pulse Pulse Pulse Resp BP Pulse Ox 10/24/18 07:00 97.2 F L 92 H 18 143/93 H 10/23/18 06:49 97.6 F 87 20 137/81 10/22/18 16:00 88 121/82 10/22/18 15:00 89 89 16 10/22/18 14:00 97.4 F L 89 16 116/73 94 L DSM 5 Symptoms Update: Shortly patient is a 68-year old female with a long and debilitating history of mental illness mood spectrum disorder and anxiety, patient has history of psychiatric admissions in the past including [facility] for 1-1/2 years at age of 14, patient also has history of self mutilating behavior in her 20[age] patient was cutting herself with a razor, patient currently under the care of Dr. Raulito Justice here in [place], initially patient was admitted on the medical side for evaluation of altered mental status, catatonia, which was related to urinary tract infection and possible mental illness, patient was stabilized on IV antibiotics, yesterday patient presented better, with a help of her supportive patient was able to make decision to sign herself into the hospital, patient had a capacity to do so, at present moment patient requires further evaluation, stabilization, observation, medications adjustment. Patient was seen today at the treatment team meeting room, patient presented with some improvements of her psychomotor retardation, patient was more talkative, affect was more reactive, patient ambulated independently, patient reported feeling "okay, not bad". oddly related, at times smiling inappropriately, but overall no agitation no aggression. Personal hygiene is fair, ADLs are improving 1:1 was d/c 10/25/18 Over the weekend patient presented to be psychotic patient said "If I could, I would fly out of the window, to see if my wings working, I would like to catch a bird...," As per staff patient compliant with medications, no agitation, no aggression, patient is more visible. So far patient tolerated his medications well, no side effects reported, 0, no EPS. SW spoke to pt's , who reported that pt is improving. DSM 5 Diagnosis: History of depression and anxiety At present moment this narrative writer would like to rule out major depressive disorder severe with psychosis/catatonia Rule out delirium due to general medical condition, UTI seems to be improving Rule out early stage dementia Rule out normal aging Medication Change: Yes (Lexapro increased, decreased) Medical Record Reviewed: Yes Mental Status Examination - Cognitive Function Orientation: Person, Place, Situation Memory: Impaired Attention: Poor Concentration: Poor Association: Loose Fund of Knowledge: Poor - Mood Mood: Depressed, Anxious - Affect Affect: Flat - Formal Thought Process Formal Thought Process: Hallucinations (Denied today), Delusions (Not elicited), Loosening of associations - Suicidal Ideation Suicidal Ideation: No - Homicidal Ideation Homicidal Ideation: No Goal/Treatment Plan - Goal/Treatment Plan Need for Continued Stay: Remain at risks for inpatient hospitalization, Severe depression anxiety, Discharge may exacerbated symptoms, Severe functional impairment Progress Toward Problem(s) and Goals/Treatment Plan: Milieu/structure/supportive therapy Patient will be seen by her primary care physician SW consultation for discharge plan and social issues Med management: Medications were confirmed by patient pharmacy, please see consultation note for more detailed information Catapres 0.1 mg twice a day will be continued Lexapro 20 mg daily will be continued with a plan to increase it to 20 mg Lorazepam 0.5 mg 3 times a day scheduled for catatonia and anxiety Seroquel 100 mg at the nighttime for psychosis and mood stabilization Family involvement Follow up on labs Will monitor closely Pt was educated about risk/benefits and alternatives of medications, coping strategies (safety plan, suicide prevention), relapse prevention, importance of follow up with psychiatrist and therapist, stay away from drugs/alcohol/smoking Estimated Date of D/C: 10/29/18
[2018-10-26] MEDS ORDERED: Hyoscyamine 0.125 mg SL Tab PO PRN (16:56)
--- NOTE | 2018-10-26 23:04 | PN ---
DATE: 10/26/2018 SUBJECTIVE: Patient was seen this Thursday, on 5B, resting comfortably in her room. She is awake and in good spirits, was showing marked clinical improvement when I last saw her before the weekend when she was a still obtunded from the accidental medication overdose of zolpidem. She is awake. PLAN: I spoke with her at length regarding her symptoms and her medications. I appreciate Psychiatry input as her medications are further adjusted. I talked to the patient about caution with opiates and benzodiazepines, she understands. She complains to have some abdominal symptoms. She complained of constipation yesterday. She explains pain that is more crampy in nature. I will try some hyoscyamine and followup. Sami Villarreal MD [facility]
[2018-10-27] MEDS: Pantoprazole 40 mg EC Tab PO SCH (06:24)
[2018-10-27 07:22] VITALS: RESP 20
[2018-10-27] MEDS: Bisacodyl 5mg EC Tab PO SCH (08:33)
[2018-10-27] MEDS ORDERED: Magnesium Citrate Oral SOL (300 ml) PO ONE (10:49)
[2018-10-27 11:08] LABS: ALB/GLOB RATIO 1.1 (1.1-1.8); ALBUMIN 3.4 g/dL (3.0-4.8); ALT/SGPT 13 U/L (7-56); AST/SGOT 22 U/L (14-36); BLOOD UREA NITROGEN 13 mg/dL (7-21); CALCIUM 8.9 mg/dL (8.4-10.5); GFR NON-AFRICAN AMERICAN > 60
[2018-10-27 11:13] LABS: BASO # 0.11 K/mm3 (0.0-2.0); EOS # 0.4 (0.0-0.7); EOS % 7.7 % (1.5-5.0); LYMPH # 1.7 (1.2-3.4); LYMPH % 31.1 % (22.0-35.0); MEAN CORPUSCULAR HEMOGLOBIN 28.4 pg (25.0-35.0); MEAN CORPUSCULAR HGB CONC 30.9 g/dl (31.0-37.0); MEAN PLATELET VOLUME 9.2 fl (7.0-11.0); MONO # 0.2 (0.1-0.6); MONO % 4.2 % (1.0-6.0); RBC 3.52 10^6/uL (3.5-6.1); RED CELL DISTRIBUTION WIDTH 14.5 % (11.5-14.5); WHITE BLOOD COUNT 5.4 10^3/uL (4.5-11.0)
--- NOTE | 2018-10-27 16:15 | PCM.PYCHPN ---
Psychiatric Progress Note - Psychiatric Progress Note Patient seen today, length of contact: 30 minutes Patient Chief Complaint: "I feel little better, I still don't remember your name but I think you are a doctor or social insurance adviser" Problems Identified/Issues Discussed: Risk/benefits and alternatives of medications discussed, suicide/ homicide prevention, past psychiatric h/o, current psychiatric symptoms, medical problems, risk/benefits and alternatives of medications, medications compliance, coping strategies, substance abuse h/o, relapse prevention, importance of follow up with psychiatrist and therapist, discharge plan. Medical Problems: See HPI Diagnostic Results: 10/24/18 07:00 10/24/18 07:00 Lab Results 10/24/18 07:00: Sodium 140, Potassium 4.0, Chloride 106, Carbon Dioxide 28, Anion Gap 10, BUN 9, Creatinine 0.5 L, Est GFR ( Amer) > 60, Est GFR (Non-Af Amer) > 60, Random Glucose 91, Calcium 8.7, Phosphorus 3.9, Magnesium 2.0, Total Bilirubin 0.4, AST 32, ALT 14, Alkaline Phosphatase 78, Total Protein 6.4, Albumin 3.0, Globulin 3.4, Albumin/Globulin Ratio 0.9 L 10/24/18 07:00: WBC 4.6 D, RBC 3.37 L, Hgb 9.7 L, Hct 30.9 L, MCV 91.7, MCH 28.8, MCHC 31.4, RDW 14.6 H, Plt Count 437, MPV 9.2, Neut % (Auto) 43.6 L, Lymph % (Auto) 32.9, [place] % (Auto) 6.6 H, Eos % (Auto) 14.7 H, Baso % (Auto) 2.2, Lymph # (Auto) 1.5, [place] # (Auto) 0.3, Eos # (Auto) 0.7, Baso # (Auto) 0.10, Absolute Neuts (auto) 1.99 Vital Signs Temp Pulse Pulse Pulse Resp BP Pulse Ox 10/24/18 07:00 97.2 F L 92 H 18 143/93 H 10/23/18 06:49 97.6 F 87 20 137/81 10/22/18 16:00 88 121/82 10/22/18 15:00 89 89 16 10/22/18 14:00 97.4 F L 89 16 116/73 94 L DSM 5 Symptoms Update: Shortly patient is a 68-year old female with a long and debilitating history of mental illness mood spectrum disorder and anxiety, patient has history of psychiatric admissions in the past including [facility] for 1-1/2 years at age of 14, patient also has history of self mutilating behavior in her 20th patient was cutting herself with a razor, patient currently under the care of Dr. Raulito Justice here in [place], initially patient was admitted on the medical side for evaluation of altered mental status, catatonia, which was related to urinary tract infection and possible mental illness, patient was stabilized on IV antibiotics, yesterday patient presented better, with a help of her supportive patient was able to make decision to sign herself into the hospital, patient had a capacity to do so, at present moment patient requires further evaluation, stabilization, observation, medications adjustment. Patient was seen today in her room, patient presented with some improvements of her psychomotor retardation, patient was more talkative, affect was more reac tive, patient ambulated independently, patient reported feeling "okay, not bad". pt still don't remember this science writer, pt said that this science writer is either SW or a doctor, when this science writer again educated pt that this science writer is a physician, pt asked "why you cannot both...?" 1:1 was d/c 10/25/18 Over the weekend patient presented to be psychotic patient said "If I could, I would fly out of the window, to see if my wings working, I would like to catch a bird...," As per staff patient compliant with medications, no agitation, no aggression, patient is more visible. So far patient tolerated his medications well, no side effects reported, 0, no EPS. SW spoke to pt's , who reported that pt is improving. DSM 5 Diagnosis: History of depression and anxiety At present moment this science writer would like to rule out major depressive disorder severe with psychosis/catatonia Rule out delirium due to general medical condition, UTI seems to be improving Rule out early stage dementia Rule out normal aging Medication Change: Yes Medical Record Reviewed: Yes Consults ordered or reviewed: Medical follow-up requested Mental Status Examination - Cognitive Function Orientation: Person, Place, Situation Memory: Impaired Attention: Poor Concentration: Poor Association: Loose Fund of Knowledge: Poor - Mood Mood: Depressed, Anxious - Affect Affect: Flat - Formal Thought Process Formal Thought Process: Hallucinations (Denied today), Delusions (Not elicited), Loosening of associations - Suicidal Ideation Suicidal Ideation: No - Homicidal Ideation Homicidal Ideation: No Goal/Treatment Plan - Goal/Treatment Plan Need for Continued Stay: Remain at risks for inpatient hospitalization, Severe depression anxiety, Discharge may exacerbated symptoms, Severe functional impairment Progress Toward Problem(s) and Goals/Treatment Plan: Milieu/structure/supportive therapy Patient will be seen by her primary care physician SW consultation for discharge plan and social issues Med management: Medications were confirmed by patient pharmacy, please see consultation note for more detailed information Catapres 0.1 mg twice a day will be continued Lexapro 20 mg daily will be continued with a plan to increase it to 20 mg Lorazepam 0.5 mg 2 times a day scheduled for catatonia and anxiety Seroquel 150 mg at the nighttime for psychosis and mood stabilization Family involvement Follow up on labs Will monitor closely Pt was educated about risk/benefits and alternatives of medications, coping strategies (safety plan, suicide prevention), relapse prevention, importance of follow up with psychiatrist and therapist, stay away from drugs/alcohol/smoking Estimated Date of D/C: 10/29/18
[2018-10-27] MEDS: QUEtiapine 100 MG, QUEtiapine 50 MG PO SCH (21:37)
[2018-10-28] MEDS: Pantoprazole 40 mg EC Tab PO SCH (06:21)
[2018-10-28] MEDS: Bisacodyl 5mg EC Tab PO SCH (09:47)
--- NOTE | 2018-10-28 15:22 | PCM.PYCHPN ---
Psychiatric Progress Note - Psychiatric Progress Note Patient seen today, length of contact: 30 minutes Patient Chief Complaint: "I feel little better...when do you think I can go home?" Problems Identified/Issues Discussed: Risk/benefits and alternatives of medications discussed, suicide/ homicide prevention, past psychiatric h/o, current psychiatric symptoms, medical problems, risk/benefits and alternatives of medications, medications compliance, coping strategies, substance abuse h/o, relapse prevention, importance of follow up with psychiatrist and therapist, discharge plan. Medical Problems: See HPI Diagnostic Results: 10/24/18 07:00 10/24/18 07:00 Lab Results 10/24/18 07:00: Sodium 140, Potassium 4.0, Chloride 106, Carbon Dioxide 28, Anion Gap 10, BUN 9, Creatinine 0.5 L, Est GFR ( Amer) > 60, Est GFR (Non-Af Amer) > 60, Random Glucose 91, Calcium 8.7, Phosphorus 3.9, Magnesium 2.0, Total Bilirubin 0.4, AST 32, ALT 14, Alkaline Phosphatase 78, Total Protein 6.4, Albumin 3.0, Globulin 3.4, Albumin/Globulin Ratio 0.9 L 10/24/18 07:00: WBC 4.6 D, RBC 3.37 L, Hgb 9.7 L, Hct 30.9 L, MCV 91.7, MCH 28.8, MCHC 31.4, RDW 14.6 H, Plt Count 437, MPV 9.2, Neut % (Auto) 43.6 L, Lymph % (Auto) 32.9, [place] % (Auto) 6.6 H, Eos % (Auto) 14.7 H, Baso % (Auto) 2.2, Lymph # (Auto) 1.5, [place] # (Auto) 0.3, Eos # (Auto) 0.7, Baso # (Auto) 0.10, Absolute Neuts (auto) 1.99 Vital Signs Temp Pulse Pulse Pulse Resp BP Pulse Ox 10/24/18 07:00 97.2 F L 92 H 18 143/93 H 10/23/18 06:49 97.6 F 87 20 137/81 10/22/18 16:00 88 121/82 10/22/18 15:00 89 89 16 10/22/18 14:00 97.4 F L 89 16 116/73 94 L DSM 5 Symptoms Update: Shortly patient is a 68-year old female with a long and debilitating history of mental illness mood spectrum disorder and anxiety, patient has history of psychiatric admissions in the past including [facility] for 1-1/2 years at age of 14, patient also has history of self mutilating behavior in her 19th patient was cutting herself with a razor, patient currently under the care of Dr. Raulito Justice here in [place], initially patient was admitted on the medical side for evaluation of altered mental status, catatonia, which was related to urinary tract infection and possible mental illness, patient was stabilized on IV antibiotics, yesterday patient presented better, with a help of her supportive patient was able to make decision to sign herself into the hospital, patient had a capacity to do so, at present moment patient requires further evaluation, stabilization, observation, medications adjustment. Patient was seen today next to the nursing station, patient presented little better, patient is in process of weaning off Ativan, Seroquel was increased yesterday, patient required further evaluation and stabilization. Patient has episodes of confusion but overall much better. 1:1 was d/c 10/25/18 As per staff patient compliant with medications, no agitation, no aggression, patient is more visible. So far patient tolerated his medications well, no side effects reported, AIMS 0, no EPS. SW spoke to pt's , who reported that pt is improving. 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 would like to rule out major depressive disorder severe with psychosis/catatonia Rule out delirium due to general medical condition, UTI seems to be improving Rule out early stage dementia Rule out normal aging Medication Change: Yes (Ativan discontinued) Medical Record Reviewed: Yes Consults ordered or reviewed: Medical follow-up requested Mental Status Examination - Cognitive Function Orientation: Person, Place, Situation Memory: Impaired Attention: Poor (Some improvement) Concentration: Poor (Some improvement) Association: WNL Fund of Knowledge: WNL - Mood Mood: Depressed ("I feel better"), Anxious - Affect Affect: Constricted (But more reactive/mood congruent) - Speech Speech: Appropriate (Underproductive) - Formal Thought Process Formal Thought Process: Hallucinations (Denied today), Delusions (Not elicited), Loosening of associations - Suicidal Ideation Suicidal Ideation: No - Homicidal Ideation Homicidal Ideation: No Goal/Treatment Plan - Goal/Treatment Plan Need for Continued Stay: Remain at risks for inpatient hospitalization, Severe depression anxiety, Discharge may exacerbated symptoms, Severe functional impairment Progress Toward Problem(s) and Goals/Treatment Plan: Milieu/structure/supportive therapy Patient will be seen by her primary care physician SW consultation for discharge plan and social issues Med management: Medications were confirmed by patient pharmacy, please see consultation note for more detailed information Catapres 0.1 mg twice a day will be continued Lexapro 20 mg daily will be continued with a plan to increase it to 20 mg Lorazepam was discontinued Seroquel 150 mg at the nighttime for psychosis and mood stabilization Family involvement Follow up on labs Will monitor closely Pt was educated about risk/benefits and alternatives of medications, coping strategies (safety plan, suicide prevention), relapse prevention, importance of follow up with psychiatrist and therapist, stay away from drugs/alcohol/smoking Estimated Date of D/C: 10/29/18
[2018-10-28] MEDS: QUEtiapine 100 MG, QUEtiapine 50 MG PO SCH (21:26)
[2018-10-29] MEDS: Pantoprazole 40 mg EC Tab PO SCH (06:04)
[2018-10-29 07:27] VITALS: PULSE 57; TEMP 98.5
[2018-10-29] MEDS: Bisacodyl 5mg EC Tab PO SCH (08:03)
[2018-10-29 08:07] VITALS: BP 145/76
--- NOTE | 2018-10-29 16:28 | PCM.PYCHDC ---
Mental Status Examination - Mental Status Examination Orientation: Person, Place, Situation, Time Memory: Intact Mood: Neutral Affect: Broad (And mood congruent) Speech: Appropriate Attention: Poor (With much improvement) Concentration: Poor (With much improvement) Association: WNL Fund of Knowledge: WNL Formal Thought Process: No Impairment Description of patient's judgement and insight: Pt has improved insight into mental and medical illness, pt was compliant with medications and unit rules and regulations, pt was attending therapy groups, was calm, cooperative, socially appropriate, no behavioral incidents, no agitation, no aggression. Psychotic Thoughts and Behaviors: Pt denied v/a/t hallucinations, denied paranoid ideations, pt does not appear to be psychotic, and thought process is goal directed. Suicidal Ideation: No Current Homicidal Ideation?: No Plan: pt adamantly denied thoughts of harming self or others denied intent or plan. Discharge Summary - Discharge Note Reason for Hospitalization: Patient was transferred from the medical side for evaluation and stabilization of mood symptoms, altered mental status, depression, anxiety, psychosis, medication adjustment. Psychiatric History (includes Medical, Family, Personal Hx): See HPI Laboratory Data: 10/27/18 10:40 10/27/18 10:40 Lab Results 10/27/18 10:40: WBC 5.4, RBC 3.52, Hgb 10.0 L, Hct 32.4 L, MCV 92.0, MCH 28.4, MCHC 30.9 L, RDW 14.5, Plt Count 473 H, MPV 9.2, Neut % (Auto) 55.0, Lymph % (Auto) 31.1, [place] % (Auto) 4.2, Eos % (Auto) 7.7 H, Baso % (Auto) 2.0, Lymph # (Auto) 1.7, [place] # (Auto) 0.2, Eos # (Auto) 0.4, Baso # (Auto) 0.11, Absolute Neuts (auto) 2.99 10/27/18 10:40: Sodium 139, Potassium 4.4, Chloride 107, Carbon Dioxide 27, Anion Gap 10, BUN 13, Creatinine 0.5 L, Est GFR ( Amer) > 60, Est GFR (Non-Af Amer) > 60, Random Glucose 123 H, Calcium 8.9, Total Bilirubin 0.4, AST 22, ALT 13, Alkaline Phosphatase 83, Total Protein 6.5, Albumin 3.4, Globulin 3.2, Albumin/Globulin Ratio 1.1 10/26/18 12:20: Urine Color Yellow, Urine Appearance Clear, Urine pH 7.0, Ur Specific [place] 1.015, Urine Protein Negative, Urine Glucose (UA) Negative, Urine Ketones Negative, Urine Blood Negative, Urine Nitrate Negative, Urine Bilirubin Negative, Urine Urobilinogen 0.2, Ur Leukocyte Esterase Trace H, Urine RBC 0 - 2, Urine WBC 2 - 5, Ur Epithelial Cells 4 - 5, Urine Bacteria Mod 10/24/18 07:00: Sodium 140, Potassium 4.0, Chloride 106, Carbon Dioxide 28, Anion Gap 10, BUN 9, Creatinine 0.5 L, Est GFR ( Amer) > 60, Est GFR (Non-Af Amer) > 60, Random Glucose 91, Calcium 8.7, Phosphorus 3.9, Magnesium 2. 0, Total Bilirubin 0.4, AST 32, ALT 14, Alkaline Phosphatase 78, Total Protein 6.4, Albumin 3.0, Globulin 3.4, Albumin/Globulin Ratio 0.9 L 10/24/18 07:00: WBC 4.6 D, RBC 3.37 L, Hgb 9.7 L, Hct 30.9 L, MCV 91.7, MCH 28.8, MCHC 31.4, RDW 14.6 H, Plt Count 437, MPV 9.2, Neut % (Auto) 43.6 L, Lymph % (Auto) 32.9, [place] % (Auto) 6.6 H, Eos % (Auto) 14.7 H, Baso % (Auto) 2.2, Lymph # (Auto) 1.5, [place] # (Auto) 0.3, Eos # (Auto) 0.7, Baso # (Auto) 0.10, Absolute Neuts (auto) 1.99 Vital Signs Temp Pulse Pulse Pulse Resp BP Pulse Ox 10/29/18 08:01 57 L 145/76 10/29/18 07:26 98.5 F 57 L 20 145/72 10/28/18 17:24 53 L 99/68 L 10/28/18 16:00 53 L 99/68 L 10/28/18 09:45 74 162/78 H 10/28/18 06:54 97.9 F 74 20 162/78 H 10/27/18 17:02 78 116/76 10/27/18 16:00 78 116/76 10/27/18 10:20 97.4 F L 10/27/18 08:32 61 134/76 10/27/18 07:21 97.8 F 61 20 134/76 10/26/18 18:08 71 132/89 10/26/18 16:00 71 132/89 10/26/18 09:52 75 126/73 10/26/18 07:13 98.0 F 75 16 126/73 93 L 10/25/18 17:58 74 105/74 10/25/18 16:41 74 105/74 10/25/18 16:26 74 105/74 10/25/18 09:13 79 139/87 10/25/18 07:27 98.1 F 79 17 139/87 10/24/18 07:00 97.2 F L 92 H 18 143/93 H 10/23/18 06:49 97.6 F 87 20 137/81 10/22/18 16:00 88 121/82 10/22/18 15:00 89 89 16 10/22/18 14:00 97.4 F L 89 16 116/73 94 L Consultations:: List each consultation separately and include: 1. Reason for request. 2. Findings. 3. Follow-up Consultations: Medical follow-up appreciated, please see notes for more detailed information Summary of Hospital Course include:: 1. Description of specific treatment plan utilized for patients during their course of treatmen. 2. Summarize the time- course for resolution of acute symptoms and/or regressed behaviors. 3. Describe issues identified and worked on during hospitalization. 4. Describe medication utilized. 5. Describe medical problems identified and treated. 6. Reassessment of suicide risk Summary of Hospital Course: Shortly patient is a 68-year old female with a long and debilitating history of mental illness mood spectrum disorder and anxiety, patient has history of psychiatric admissions in the past including [facility] for 1-1/2 years at age of 14, patient also has history of self mutilating behavior in her 19th patient was cutting herself with a razor, patient currently under the care of Dr. Raulito wen in [place], initially patient was admitted on the medical side for evaluation of altered mental status, catatonia, which was related to urinary tract infection and possible mental illness, patient was stabilized on IV antibiotics, yesterday patient presented better, with a help of her supportive patient was able to make decision to sign herself into the hospital, patient had a capacity to do so, at present moment patient requires further evaluation, stabilization, observation, medications adjustment. Please see admission note for more detailed information. Patient was stabilized on the following medications: Lexapro 20 mg daily for depression and anxiety Seroquel 200 mg at the nighttime, for mood stabilization and psychotic symptoms Ativan for catatonia was weaned off Patient reported that medications well, no side effects observed or reported, aims 0, no EPS. Over the course of this hospitalization pt was attending groups, pt also had medication management, had therapeutic milieu. Overall pt improved significantly, pt's affect became brighter, pt was less depressed, has realistic future oriented plans, pt also does not appear to be psychotic, or anxious, pt was socially appropriate, no behavioral issues, pts insight improved as well and soon pt deemed to be ready for discharge. As per patient patient reached her baseline. At the time of the discharge patient pose no imminent danger to self or others, will be following up with Dr.Paul Justice's clinic, information about follow up appointment, time and address provided to the pt, (see SW note for more detailed information). It is a patient responsibility to follow up with outpatient clinic, PMD as well as specialists In case patient will need to obtain results of studies pending at discharge, patient was provided with contact information of Psychiatric Inpatient unit [phone] as well as Medical Record Department [phone], as well as [facility] team [phone]. Patient denied using any drugs, denies smoking, denied alcohol consumption. pt was provided with prescriptions (see medication reconciliation form) Pt was educated about safety plan in case of worsening of symptoms or in case of suicidal or homicidal ideation call 911 or go to the nearest ER, also was educated to take meds as prescribed and stay away from drugs, pt verbalized un derstanding. 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 It is a patient responsibility to follow up with outpatient clinic, PMD as well as specialists In case patient will need to obtain results of studies pending at discharge, patient was provided with contact information of Psychiatric Inpatient unit [phone] as well as Medical Record Department [phone], as well as [facility] team [phone]. Patient denied using any drugs, denies smoking, denied alcohol consumption. pt was provided with prescriptions (see medication reconciliation form) Pt was educated about safety plan in case of worsening of symptoms or in case of suicidal or homicidal ideation call 911 or go to the nearest ER, also was educated to take meds as prescribed and stay away from drugs, pt verbalized understanding. Prescriptions/Medication Reconciliation: Aspirin [Ecotrin] 81 mg PO DAILY #7 tabec Bisacodyl [Dulcolax] 5 mg PO DAILY #7 ect cloNIDine [Catapres] 0.1 mg PO BID #14 tab Docusate [Colace] 100 mg PO BID #14 cap Escitalopram [Lexapro] 20 mg PO DAILY #14 tab Pantoprazole [Protonix EC Tab] 40 mg PO 0600 #7 ect Quetiapine Fumarate [Seroquel] 200 mg PO HS #14 tab - Smoking Cessation Smoking Cessation Medication prescribed: No Reason for not providing: Patient denies smoking
== END 2018-10-29 15:15 | disposition home or self-care (01) | DRG 880 ==
LOC: PSYC 13:25
PROVIDERS: ADMIT Psychiatry & Neurology Psychiatry; ATTEND Psychiatry & Neurology Psychiatry
PROC: GZ3ZZZZ Medication Management (ICD-10-PCS; principal; 2018-10-22)
DX: F41.1 Generalized anxiety disorder (principal); N39.0 Urinary tract infection, site not specified; F06.1 Catatonic disorder due to known physiological condition; F32.9 Major depressive disorder, single episode, unspecified; K21.9 Gastro-esophageal reflux disease without esophagitis; Z91.5 Personal history of self-harm; Z91.81 History of falling; Z96.642 Presence of left artificial hip joint